=== PATIENT | female | born 1955 | race Caucasian/White ===

== ENCOUNTER 2018-09-07 04:33 | Inpatient (IN) | payer MEDICARE, MEDICAID ==
[~2018-09-07] VITALS: Ht 172.7 cm; Wt 50.0 kg
[~2018-09-07 04:33] MED LIST: CARV3.1289 CORPAK; CITA20TA28 PO; FURO40TA4 PO; LISI2.5T2 CORPAK; NICO-687 TD; NO HOME MEDS; POTA20TA10 PO
[2018-09-07] MEDS ORDERED: aspirin 81mg tab.chew PO ONE (04:40)
[2018-09-07 05:49] LABS: ALANINE AMINOTRANSFERASE 16 U/L (12-78); ALBUMIN 2.4 G/DL (3.4-5.0); ALBUMIN/GLOBULIN RATIO 0.5 (1.1-1.5); ALKALINE PHOSPHATASE 107 IU/L (46-116); ANION GAP 10 (8-16); ASPARTATE AMINO TRANSFERASE 21 U/L (10-37); BILIRUBIN,TOTAL 0.2 MG/DL (0.1-1.0); BLOOD UREA NITROGEN 17 MG/DL (7-18); BUN/CREATININE RATIO 17.9 (6.6-38.0); CHLORIDE 102 MMOL/L (99-107); CREATININE 0.95 MG/DL (0.40-0.90); GLUCOSE 116 MG/DL (70-104); POTASSIUM 3.7 MMOL/L (3.5-5.1); SODIUM 136 MMOL/L (135-145); TOTAL CARBON DIOXIDE 24.4 MMOL/L (24-32); TOTAL PROTEIN 7.2 G/DL (6.4-8.2); eGFR 59 ML/MIN
[2018-09-07 05:57] LABS: MAGNESIUM 1.9 MG/DL (1.5-2.4)
[2018-09-07 06:12] LABS: BASOPHILS # (AUTO) 0.1 X10'3 (0-0.2); BASOPHILS % (AUTO) 0.6 % (0-1); EOSINOPHILS # (AUTO) 0.3 X10'3 (0-0.9); HEMATOCRIT 31.5 % (35.0-45.0); HEMOGLOBIN 10.1 g/dl (12.0-16.0); LYMPHOCYTES # (AUTO) 1.8 X10'3 (1.1-4.8); LYMPHOCYTES % (AUTO) 15.5 % (21-51); MEAN CORPUSCULAR HEMOGLOBIN 27.3 PG (27.0-31.0); MEAN CORPUSCULAR HGB CONC 32.2 g/dL (33.0-36.5); MEAN CORPUSCULAR VOLUME 84.6 FL (78-98); MEAN PLATELET VOLUME 7.6 FL (7.4-10.4); MONOCYTES # (AUTO) 0.8 X10'3 (0-0.9); MONOCYTES % (AUTO) 6.6 % (2-12); NEUTROPHILS # (AUTO) 8.5 X10'3 (1.8-7.7); NEUTROPHILS % (AUTO) 74.3 % (42-75); PLATELET COUNT 442 X10'3 (140-440); RED BLOOD COUNT 3.72 X10'6 (4.20-5.60); RED CELL DISTRIBUTION WIDTH 15.6 % (11.5-14.5); WHITE BLOOD COUNT 11.5 X10'3 (4.5-11.0)
[2018-09-07] MEDS ORDERED: furosemide 10 MG/1 ML 10ml inj IV ONE (06:40)
[2018-09-07] MEDS ORDERED: iohexol 350MG/ML 100ml bottle IV ONE (06:58)
[2018-09-07] MEDS ORDERED: mag hydrox/Alum hydrox/simeth 30ml oral suspension PO PRN (08:30)
[2018-09-07] MEDS ORDERED: ondansetron/PF 4mg/2ml inj IV PRN ×2 (08:30→08:40)
[2018-09-07] MEDS ORDERED: magnesium hydroxide 30ml (MOM) UD suspension PO PRN (08:30)
[2018-09-07] MEDS ORDERED: acetaminophen 325mg tablet PO PRN (08:30)
[2018-09-07] MEDS ORDERED: magnesium 4gm in 100ml NS 100 ML IV PRN (08:40)
[2018-09-07] MEDS ORDERED: magnesium Cl slow-release 64mg tablet PO PRN (08:40)
[2018-09-07] MEDS ORDERED: potassium Cl 20 mEq SR tablet PO PRN ×2 (08:40)
[2018-09-07] MEDS ORDERED: potassium Cl 40MEQ/NS 500ml 500 ML IV PRN ×2 (08:40)
[2018-09-07] MEDS ORDERED: magnesium 2GM in 50ml NS 50 ML IV PRN (08:40)
[2018-09-07] MEDS ORDERED: ipratropium/albuterol 3ml nebule NEB PRN (08:40)
[2018-09-07 08:55] LABS: URINE AMPHETAMINE SCREEN NEGATIVE (Neg); URINE BARBITUATE SCREEN NEGATIVE (Neg); URINE BENZODIAZEPINES SCREEN NEGATIVE (Neg); URINE CANNABINOID SCREEN NEGATIVE (Neg); URINE COCAINE SCREEN NEGATIVE (Neg); URINE METHADONE SCREEN NEGATIVE (Neg); URINE OPIATE SCREEN NEGATIVE (Neg); URINE PHENCYCLIDINE SCREEN NEGATIVE (Neg)
[2018-09-07] MEDS ORDERED: BUSP10TA3 PO (12:09)
[2018-09-07] MEDS ORDERED: TRAZ-251 PO (12:09)
[2018-09-07] MEDS ORDERED: FURO20TA4 PO (12:09)
[2018-09-07] MEDS ORDERED: NICO-687 TOP (12:09)
[2018-09-07] MEDS ORDERED: METO-395 PO (12:09)
[2018-09-07] MEDS ORDERED: LISI-604 PO (12:09)
--- NOTE | 2018-09-07 12:37 | NUR ---
I have received report from СЕРГЕЙ Killian and had the opportunity to ask questions and assume patient care.
[2018-09-07 13:15] VITALS: BP 116/65
[2018-09-07] MEDS: metoprolol succinate 25mg (24-HOUR) SR. Tablet PO SCH (13:58)
[2018-09-07] MEDS: lisinopril 5mg tablet PO SCH (13:59)
[2018-09-07 15:13] LABS: % IRON SATURATION 8 % (11-46); IRON 30 UG/DL (49-151); TOTAL IRON BINDING CAPACITY 396 UG/DL (259-388)
--- NOTE | 2018-09-07 18:35 | NUR ---
Problems reprioritized. Patient report given, questions answered & plan of care reviewed with СЕРГЕЙ Moralez and tyson Sorenson RN.
--- NOTE | 2018-09-07 18:39 | NUR ---
Received report from Cara Hughes with Yas RN pt was eating dinner on RA, pt is SL in no apparent distress, call light and items of freq use within reach
[2018-09-07 19:00] VITALS: BP 100/60
[2018-09-07] MEDS ORDERED: furosemide 10 MG/1 ML 10ml inj IV SCH (20:00)
[2018-09-07] MEDS: furosemide 20MG tablet PO SCH (20:24)
[2018-09-07] MEDS: busPIRone 5mg tablet PO SCH (20:24)
[2018-09-07] MEDS ORDERED: traZODone 50mg tablet PO SCH (21:00)
[2018-09-08] VITALS: BP 106/55
[2018-09-08 04:42] LABS: BASOPHILS # (AUTO) 0.1 X10'3 (0-0.2); BASOPHILS % (AUTO) 1.2 % (0-1); EOSINOPHILS # (AUTO) 0.3 X10'3 (0-0.9); EOSINOPHILS % (AUTO) 2.8 % (0-6); HEMATOCRIT 34.7 % (35.0-45.0); HEMOGLOBIN 11.1 g/dl (12.0-16.0); LYMPHOCYTES # (AUTO) 2.4 X10'3 (1.1-4.8); MEAN CORPUSCULAR HEMOGLOBIN 27.1 PG (27.0-31.0); MEAN CORPUSCULAR VOLUME 84.8 FL (78-98); MEAN PLATELET VOLUME 7.9 FL (7.4-10.4); MONOCYTES # (AUTO) 0.7 X10'3 (0-0.9); MONOCYTES % (AUTO) 6.6 % (2-12); NEUTROPHILS # (AUTO) 7.7 X10'3 (1.8-7.7); NEUTROPHILS % (AUTO) 68.4 % (42-75); PLATELET COUNT 517 X10'3 (140-440); RED BLOOD COUNT 4.09 X10'6 (4.20-5.60); RED CELL DISTRIBUTION WIDTH 15.7 % (11.5-14.5); WHITE BLOOD COUNT 11.2 X10'3 (4.5-11.0)
[2018-09-08 04:54] LABS: ALBUMIN 2.4 G/DL (3.4-5.0); ANION GAP 7 (8-16); BLOOD UREA NITROGEN 25 MG/DL (7-18); BUN/CREATININE RATIO 19.5 (6.6-38.0); CALCIUM 9.1 MG/DL (8.5-10.1); CHLORIDE 101 MMOL/L (99-107); CREATININE 1.28 MG/DL (0.40-0.90); GLUCOSE 108 MG/DL (70-104); MAGNESIUM 1.9 MG/DL (1.5-2.4); POTASSIUM 3.3 MMOL/L (3.5-5.1); SODIUM 137 MMOL/L (135-145); TOTAL CARBON DIOXIDE 29.1 MMOL/L (24-32); eGFR 42 ML/MIN
--- NOTE | 2018-09-08 06:15 | NUR ---
Patient in room TAIWO 347. I have received report from Naomy RUSHING and had the opportunity to ask questions and assume patient care.
--- NOTE | 2018-09-08 06:44 | NUR ---
Problems reprioritized. Patient report given, questions answered & plan of care reviewed with Anabel RUSHING.
[2018-09-08] MEDS: lisinopril 5mg tablet PO SCH (07:32)
[2018-09-08] MEDS: metoprolol succinate 25mg (24-HOUR) SR. Tablet PO SCH (07:33)
[2018-09-08] MEDS: busPIRone 5mg tablet PO SCH (07:33)
[2018-09-08] MEDS: furosemide 20MG tablet PO SCH (07:33)
[2018-09-08 08:00] VITALS: BP 107/57
[2018-09-08] MEDS ORDERED: nicotine 21mg patch - 24 hr TD SCH (08:00)
[2018-09-08] MEDS ORDERED: K and/or MAG REPLACEMENT MC SCH (08:00)
--- NOTE | 2018-09-08 08:00 | NUR ---
Student Medication Administration: For this medication-pass time frame, all medication were reviewed, dispensed, administered and documented per hospital policy by Radha SAMSON from [facility].
--- NOTE | 2018-09-08 09:56 | NUR ---
Melba SIMMONS for Ativan for anxiety attack. Order received Ativan 0.5mg PO ONCE.
[2018-09-08] MEDS ORDERED: pneumococcal 23-VAL P-sac vacc 25 mcg/0.5ml vial IMVAC ONE (10:00)
[2018-09-08] MEDS ORDERED: LORazepam 0.5 MG tablet PO ONE (10:00)
[2018-09-08] MEDS ORDERED: potassium Cl 20 mEq SR tablet PO STA (10:46)
--- NOTE | 2018-09-08 11:29 | NUR ---
Patient discharge on nursing end, waiting on ride to go home.
--- NOTE | 2018-09-08 11:48 | NUR ---
Patient discharged took to [facility] by staff via wheelchair. A+O x 4. VS stable. Left via private vehicle.
--- NOTE | 2018-09-08 12:11 | NUR ---
Student documentation: I have reviewed and agree with all interventions, assessments performed and documented by Radha SAMSON from [facility].
== END 2018-09-08 11:30 | disposition home or self-care (01) | DRG 315 ==
LOC: ER 04:33 → SUR 3N 13:07
PROVIDERS: ADMIT Internal Medicine; ATTEND Internal Medicine
PROC: 3E0234Z Introduction of Serum, Toxoid and Vaccine into Muscle, Percutaneous Approach (ICD-10-PCS; principal; 2018-09-08)
DX: I42.9 Cardiomyopathy, unspecified (principal); I50.22 Chronic systolic (congestive) heart failure; F15.10 Other stimulant abuse, uncomplicated; G89.29 Other chronic pain; M54.9 Dorsalgia, unspecified; R09.02 Hypoxemia; E05.90 Thyrotoxicosis, unspecified without thyrotoxic crisis or storm; F41.9 Anxiety disorder, unspecified; Z87.01 Personal history of pneumonia (recurrent); Z90.710 Acquired absence of both cervix and uterus; Z23 Encounter for immunization; Z91.041 Radiographic dye allergy status; Z88.5 Allergy status to narcotic agent; Z91.013 Allergy to seafood; Z80.8 Family history of malignant neoplasm of other organs or systems; Z79.899 Other long term (current) drug therapy
CPT/HCPCS: 36415; 71045; 80048; 80053; 80305; 83540; 83550; 83735; 83880; 84484; 85025; 87070; 90732; 93005; 93306; 94760; 99285; G0378; J1940; Q9967

== ENCOUNTER 2018-09-15 13:28 | Emergency (ER) | payer MEDICARE, MEDICAID ==
[~2018-09-15] VITALS: Ht 172.7 cm; Wt 50.0 kg
[~2018-09-15 13:28] MED LIST changes: +BUSP10TA3 PO; -CARV3.1289 CORPAK; -CITA20TA28 PO; +FURO20TA4 PO; -FURO40TA4 PO; +LISI-604 PO; -LISI2.5T2 CORPAK; +METO-395 PO; -NICO-687 TD; +NICO-687 TOP; -NO HOME MEDS; -POTA20TA10 PO; +TRAZ-218 PO
[2018-09-15] MEDS ORDERED: metoprolol tartrate 1mg/ml inj IV ONE (13:50)
[2018-09-15] MEDS ORDERED: CITA20TA28 PO (14:19)
[2018-09-15 14:27] LABS: BASOPHILS # (AUTO) 0.1 X10'3 (0-0.2); EOSINOPHILS # (AUTO) 0.1 X10'3 (0-0.9); EOSINOPHILS % (AUTO) 0.8 % (0-6); HEMOGLOBIN 10.4 g/dl (12.0-16.0); LYMPHOCYTES # (AUTO) 2.2 X10'3 (1.1-4.8); LYMPHOCYTES % (AUTO) 18.5 % (21-51); MEAN CORPUSCULAR HEMOGLOBIN 26.9 PG (27.0-31.0); MEAN CORPUSCULAR HGB CONC 32.5 g/dL (33.0-36.5); MEAN CORPUSCULAR VOLUME 82.8 FL (78-98); MEAN PLATELET VOLUME 8.4 FL (7.4-10.4); MONOCYTES # (AUTO) 1.4 X10'3 (0-0.9); MONOCYTES % (AUTO) 11.8 % (2-12); NEUTROPHILS # (AUTO) 8.2 X10'3 (1.8-7.7); NEUTROPHILS % (AUTO) 67.9 % (42-75); PLATELET COUNT 472 X10'3 (140-440); RED BLOOD COUNT 3.87 X10'6 (4.20-5.60); RED CELL DISTRIBUTION WIDTH 16.1 % (11.5-14.5)
[2018-09-15 14:43] LABS: ALANINE AMINOTRANSFERASE 16 U/L (12-78); ALBUMIN 2.5 G/DL (3.4-5.0); ALBUMIN/GLOBULIN RATIO 0.5 (1.1-1.5); ALKALINE PHOSPHATASE 100 IU/L (46-116); ANION GAP 11 (8-16); ASPARTATE AMINO TRANSFERASE 15 U/L (10-37); BILIRUBIN,TOTAL 0.5 MG/DL (0.1-1.0); BLOOD UREA NITROGEN 12 MG/DL (7-18); BUN/CREATININE RATIO 13.6 (6.6-38.0); CALCIUM 9.1 MG/DL (8.5-10.1); CHLORIDE 99 MMOL/L (99-107); CREATININE 0.88 MG/DL (0.40-0.90); GLUCOSE 94 MG/DL (70-104); POTASSIUM 3.1 MMOL/L (3.5-5.1); SODIUM 134 MMOL/L (135-145); TOTAL CARBON DIOXIDE 23.8 MMOL/L (24-32); TOTAL PROTEIN 7.3 G/DL (6.4-8.2); eGFR 65 ML/MIN
[2018-09-15 14:51] LABS: MAGNESIUM 2.1 MG/DL (1.5-2.4)
--- NOTE | 2018-09-15 15:15 | NUR ---
pt amb with steady gait to restroom,
[2018-09-15] MEDS ORDERED: potassium Cl 20 mEq SR tablet PO STA (15:21)
[2018-09-15] MEDS ORDERED: METO-395 PO (15:22)
[2018-09-15] MEDS ORDERED: BACDS PO (15:23)
[2018-09-15] MEDS ORDERED: POTA20TA19 PO (15:23)
[2018-09-15] MEDS ORDERED: HYDR-4353 PO (15:23)
[2018-09-15] MEDS ORDERED: LISI-604 PO (15:24)
[2018-09-15] MEDS ORDERED: sulfamethoxazole/trimethoprim DS (800/160mg) tablet PO ONE (15:25)
[2018-09-15] MEDS ORDERED: HYDROcodone/acetaminophen 10/325mg tab PO ONE (15:25)
[2018-09-15 16:18] VITALS: BP 100/68
== END 2018-09-15 16:19 | disposition home or self-care (01) ==
LOC: ER 13:30
DX: L08.9 Local infection of the skin and subcutaneous tissue, unspecified (principal); R00.0 Tachycardia, unspecified; E87.6 Hypokalemia; I11.0 Hypertensive heart disease with heart failure; I50.9 Heart failure, unspecified; G89.29 Other chronic pain; F17.200 Nicotine dependence, unspecified, uncomplicated; Z90.710 Acquired absence of both cervix and uterus; Z91.013 Allergy to seafood; Z88.5 Allergy status to narcotic agent; Z88.8 Allergy status to other drugs, medicaments and biological substances; Z79.899 Other long term (current) drug therapy
CPT/HCPCS: 36415; 71045; 80053; 83735; 83880; 85025; 93005; 96374; 99284; J3490

== ENCOUNTER 2020-10-03 13:08 | Emergency (ER) | payer MEDICARE, MEDICAID ==
[~2020-10-03] VITALS: Ht 172.7 cm; Wt 50.0 kg
[~2020-10-03 13:08] MED LIST changes: +CITA20TA28 PO; -LISI-604 PO; +LISI-790 PO; -NICO-687 TOP; -TRAZ-218 PO; +TRAZ-251 PO
[2020-10-03] MEDS ORDERED: CELE-193 PO (15:02)
[2020-10-03 15:08] VITALS: BP 117/96
== END 2020-10-03 15:08 | disposition home or self-care (01) ==
LOC: ER 13:11
DX: M19.90 Unspecified osteoarthritis, unspecified site (principal); I11.0 Hypertensive heart disease with heart failure; I50.9 Heart failure, unspecified; G89.29 Other chronic pain; F41.9 Anxiety disorder, unspecified; Z90.710 Acquired absence of both cervix and uterus; Z98.890 Other specified postprocedural states; Z88.8 Allergy status to other drugs, medicaments and biological substances; Z88.5 Allergy status to narcotic agent; Z91.013 Allergy to seafood; Z79.899 Other long term (current) drug therapy
CPT/HCPCS: 99283

== ENCOUNTER 2021-01-19 09:47 | Emergency (ER) | payer MEDICARE, MEDICAID ==
[~2021-01-19] VITALS: Ht 172.7 cm; Wt 7.4 kg
[2021-01-19 09:55] VITALS: BP 158/69
[2021-01-19] MEDS ORDERED: DICL20GE TOP (10:15)
[2021-01-19] MEDS ORDERED: ketorolac tromethamine 15mg/ml inj. IM ONE (10:15)
== END 2021-01-19 10:25 | disposition home or self-care (01) ==
LOC: ER 09:47
DX: M19.90 Unspecified osteoarthritis, unspecified site (principal); M79.641 Pain in right hand; M79.642 Pain in left hand; I11.0 Hypertensive heart disease with heart failure; I50.9 Heart failure, unspecified; G89.29 Other chronic pain; Z90.710 Acquired absence of both cervix and uterus; Z85.05 Personal history of malignant neoplasm of liver; Z91.041 Radiographic dye allergy status; Z88.5 Allergy status to narcotic agent; Z91.013 Allergy to seafood; Z79.899 Other long term (current) drug therapy
CPT/HCPCS: 96372; 99283; J1885

== ENCOUNTER 2021-02-04 15:43 | Emergency (ER) | payer MEDICARE, MEDICAID ==
[~2021-02-04] VITALS: Ht 172.7 cm; Wt 47.7 kg
[~2021-02-04 15:43] MED LIST changes: +DICL20GE TOP
[2021-02-04 15:52] VITALS: BP 137/63
[2021-02-04] MEDS ORDERED: ketorolac tromethamine 15mg/ml inj. IM ONE (16:00)
[2021-02-04] MEDS ORDERED: DICL100G26 TP (16:02)
== END 2021-02-04 16:11 | disposition home or self-care (01) ==
LOC: ER 15:44
DX: M25.531 Pain in right wrist (principal); I11.0 Hypertensive heart disease with heart failure; I25.10 Atherosclerotic heart disease of native coronary artery without angina pectoris; G89.29 Other chronic pain; E07.9 Disorder of thyroid, unspecified; Z90.710 Acquired absence of both cervix and uterus; Z91.041 Radiographic dye allergy status; Z88.5 Allergy status to narcotic agent; Z91.013 Allergy to seafood; Z79.899 Other long term (current) drug therapy
CPT/HCPCS: 96372; 99283; J1885

== ENCOUNTER 2021-03-18 22:05 | Emergency (ER) | payer MEDICARE, MEDICAID ==
[~2021-03-18] VITALS: Ht 172.7 cm; Wt 50.0 kg
[~2021-03-18 22:05] MED LIST changes: +DICL100G26 TP
[2021-03-18 22:40] VITALS: BP 114/56
[2021-03-20] MEDS ORDERED: TRAM50TA2 PO (13:38)
[2021-03-20] MEDS ORDERED: CELE200C PO (13:38)
== END 2021-03-19 07:34 | disposition left against medical advice (07) ==
LOC: ER 22:06
DX: M79.604 Pain in right leg (principal); Z53.21 Procedure and treatment not carried out due to patient leaving prior to being seen by health care provider

== ENCOUNTER 2021-03-20 13:19 | Emergency (ER) | payer MEDICARE, MEDICAID ==
[~2021-03-20] VITALS: Ht 172.7 cm; Wt 45.5 kg
[2021-03-20 13:25] VITALS: BP 130/64
[2021-03-20] MEDS ORDERED: TRAM50TA2 PO (13:38)
[2021-03-20] MEDS ORDERED: CELE200C PO (13:38)
== END 2021-03-20 15:05 | disposition home or self-care (01) ==
LOC: ER 13:19
DX: M70.61 Trochanteric bursitis, right hip (principal); M25.551 Pain in right hip; I50.9 Heart failure, unspecified; I11.0 Hypertensive heart disease with heart failure; G89.29 Other chronic pain; F41.9 Anxiety disorder, unspecified; Z90.710 Acquired absence of both cervix and uterus; Z98.890 Other specified postprocedural states; Z88.8 Allergy status to other drugs, medicaments and biological substances; Z91.013 Allergy to seafood; Z88.5 Allergy status to narcotic agent; Z79.899 Other long term (current) drug therapy
CPT/HCPCS: 99283

== ENCOUNTER 2021-03-28 12:47 | Emergency (ER) | payer MEDICARE, MEDICAID ==
[~2021-03-28] VITALS: Ht 167.6 cm; Wt 53.6 kg
[~2021-03-28 12:47] MED LIST changes: +CELE200C PO; -LISI-790 PO; +LISI5TAB22 PO; +TRAM50TA2 PO
[2021-03-28 12:48] VITALS: BP 146/66
== END 2021-03-28 20:10 | disposition left against medical advice (07) ==
LOC: ER 12:48
DX: F41.9 Anxiety disorder, unspecified (principal); Z53.21 Procedure and treatment not carried out due to patient leaving prior to being seen by health care provider

== ENCOUNTER 2021-06-14 19:40 | Inpatient (IN) | payer MEDICARE, MEDICAID ==
[~2021-06-14] VITALS: Ht 172.7 cm; Wt 54.5 kg
[~2021-06-14 19:40] MED LIST changes: +APIX5TAB3 PO; +ASPI-1144 PO; +ATOR10TA PO; +CARV3.122 PO; -CELE200C PO; -CITA20TA28 PO; -DICL100G26 TP; -DICL20GE TOP; +FAMO20TA8 PO; +FERR325T29 PO; +HYDR-3927 PO; +MAGN400T56 PO; -METO-395 PO; +MIRT-87 PO; +SPIR25TA PO; -TRAM50TA2 PO; -TRAZ-251 PO
[2021-06-14 22:38] LABS: EOSINOPHILS # (AUTO) 0.1 X10'3 (0-0.9); EOSINOPHILS % (AUTO) 1.1 % (0-6); HEMATOCRIT 29.1 % (35.0-45.0); MONOCYTES # (AUTO) 0.5 X10'3 (0-0.9)
[2021-06-14 22:39] LABS: BASOPHILS % (AUTO) 0.3 % (0-1); LYMPHOCYTES # (AUTO) 1.7 X10'3 (1.1-4.8); LYMPHOCYTES % (AUTO) 20.8 % (21-51); MEAN CORPUSCULAR HEMOGLOBIN 22.3 PG (27.0-31.0); MEAN CORPUSCULAR HGB CONC 31.1 g/dL (33.0-36.5); MEAN CORPUSCULAR VOLUME 71.8 FL (78-98); MONOCYTES % (AUTO) 5.5 % (2-12); NEUTROPHILS # (AUTO) 6.1 X10'3 (1.8-7.7); NEUTROPHILS % (AUTO) 72.3 % (42-75); PLATELET COUNT 270 X10'3 (140-440); RED BLOOD COUNT 4.05 X10'6 (4.20-5.60); RED CELL DISTRIBUTION WIDTH 21.7 % (11.5-14.5); WHITE BLOOD COUNT 8.4 X10'3 (4.5-11.0)
[2021-06-14 22:59] LABS: ALANINE AMINOTRANSFERASE 28 U/L (12-78); ALBUMIN 2.7 G/DL (3.4-5.0); ALBUMIN/GLOBULIN RATIO 0.6 (1.1-1.5); ALKALINE PHOSPHATASE 162 IU/L (46-116); ANION GAP 11 (8-16); ASPARTATE AMINO TRANSFERASE 26 U/L (10-37); BLOOD UREA NITROGEN 26 MG/DL (7-18); BUN/CREATININE RATIO 24.1 (6.6-38.0); CALCIUM 8.3 MG/DL (8.5-10.1); CHLORIDE 102 MMOL/L (99-107); CREATININE 1.08 MG/DL (0.40-0.90); POTASSIUM 3.3 MMOL/L (3.5-5.1); SODIUM 135 MMOL/L (135-145); TOTAL CARBON DIOXIDE 22.3 MMOL/L (24-32); TOTAL PROTEIN 6.9 G/DL (6.4-8.2); eGFR 51 ML/MIN
[2021-06-14 23:02] LABS: GLUCOSE 87 MG/DL (70-104)
[2021-06-15 02:33] LABS: PLATELET ESTIMATE NORMAL
[2021-06-15 02:34] LABS: ANISOCYTOSIS 3+; ELLIPTOCYTES FEW; HYPOCHROMASIA 1+; MICROCYTOSIS 1+; POIKILOCYTOSIS 1+; POLYCHROMASIA FEW
[2021-06-15] MEDS ORDERED: spironolactone 25 MG tablet PO STA (02:51)
[2021-06-15] MEDS ORDERED: acetaminophen 325mg tablet PO PRN ×2 (03:20)
[2021-06-15] MEDS ORDERED: magnesium 2GM in 50ml NS 50 ML IV PRN (03:20)
[2021-06-15] MEDS ORDERED: potassium CL 10mEq/100ml bag 100 ML IV PRN (03:20)
[2021-06-15] MEDS ORDERED: potassium Cl 20 mEq SR tablet PO PRN ×2 (03:20)
[2021-06-15] MEDS ORDERED: magnesium Cl slow-release 64mg tablet PO PRN (03:20)
[2021-06-15] MEDS ORDERED: ondansetron/PF 4mg/2ml inj IV PRN (03:20)
[2021-06-15] MEDS ORDERED: magnesium 4gm in 100ml NS 100 ML IV PRN (03:20)
[2021-06-15] MEDS ORDERED: APIX5TAB3 PO (03:31)
[2021-06-15] MEDS ORDERED: SPIR25TA PO (03:32)
[2021-06-15] MEDS ORDERED: ATOR10TA70 PO (03:32)
[2021-06-15] MEDS ORDERED: magnesium oxide 400mg tablet PO PRN (04:00)
[2021-06-15] MEDS ORDERED: hydrOXYzine 25 MG tablet PO PRN (04:00)
[2021-06-15] MEDS ORDERED: carVEDilol 3.125mg tablet PO SCH (08:00)
[2021-06-15] MEDS ORDERED: ferrous sulfate 325mg tablet PO SCH (08:00)
[2021-06-15] MEDS ORDERED: aspirin 81mg tab.chew PO SCH (08:00)
[2021-06-15] MEDS ORDERED: heparin, porcine 5000 units/ml vial SQ SCH (08:00)
[2021-06-15] MEDS ORDERED: K and/or MAG REPLACEMENT MC SCH (08:00)
[2021-06-15] MEDS ORDERED: lisinopril 5mg tablet PO SCH (08:00)
[2021-06-15] MEDS ORDERED: atorvastatin 10mg tablet PO SCH (08:00)
[2021-06-15] MEDS ORDERED: furosemide 10 MG/1 ML 10ml inj IV SCH (08:00)
[2021-06-15] MEDS ORDERED: busPIRone 5mg tablet PO SCH (08:00)
[2021-06-15] MEDS ORDERED: famotidine 20mg tablet PO SCH (08:00)
[2021-06-15] MEDS ORDERED: spironolactone 25 MG tablet PO SCH (08:30)
--- NOTE | 2021-06-15 11:00 | NUR ---
PT ASSISTED TO BEDSIDE COMMODE TO OBTAIN URINE SAMPLE. PT URINATED AND HAD BOWEL MOVEMENT WHICH CONTAMINATED THE URINE SAMPLE. PT THEN CLEANED UP AND ESCORTED BACK TO BED
[2021-06-15] MEDS ORDERED: CEPH-585 PO (12:48)
[2021-06-15] MEDS ORDERED: ZAR2.5T PO (12:48)
[2021-06-15 13:00] VITALS: BP 99/59
[2021-06-15] MEDS ORDERED: mirtazapine 15mg tablet PO SCH (21:00)
[2021-06-15] MEDS ORDERED: temazepam 15mg capsule PO PRN (21:00)
== END 2021-06-15 13:42 | disposition home health service (06) | DRG 291 ==
LOC: ER 19:40 → ED HOLD 06-15 03:24
PROVIDERS: ADMIT Internal Medicine; ATTEND Internal Medicine
DX: I13.0 Hypertensive heart and chronic kidney disease with heart failure and stage 1 through stage 4 chronic kidney disease, or unspecified chronic kidney disease (principal); I50.23 Acute on chronic systolic (congestive) heart failure; I42.7 Cardiomyopathy due to drug and external agent; F41.9 Anxiety disorder, unspecified; M54.9 Dorsalgia, unspecified; G89.29 Other chronic pain; F15.11 Other stimulant abuse, in remission; W06.XXXA Fall from bed, initial encounter; Y92.003 Bedroom of unspecified non-institutional (private) residence as the place of occurrence of the external cause; Z79.01 Long term (current) use of anticoagulants; Z86.711 Personal history of pulmonary embolism; Z90.710 Acquired absence of both cervix and uterus; Y93.89 Activity, other specified; Y99.8 Other external cause status; Z91.041 Radiographic dye allergy status; Z88.5 Allergy status to narcotic agent; Z91.013 Allergy to seafood; Z80.0 Family history of malignant neoplasm of digestive organs; Z79.899 Other long term (current) drug therapy; N18.30 Chronic kidney disease, stage 3 unspecified
CPT/HCPCS: 36415; 71045; 80053; 83605; 83880; 84132; 84145; 85008; 85025; 87040; 93005; 99285; G0378; J1644

== ENCOUNTER 2021-06-29 16:23 | Inpatient (IN) | payer MEDICARE, MEDICAID ==
[~2021-06-29] VITALS: Ht 163.8 cm; Wt 51.2 kg
[~2021-06-29 16:23] MED LIST changes: -ATOR10TA PO; +ATOR10TA70 PO; +ZAR2.5T PO
[2021-06-29 18:16] LABS: BASOPHILS % (AUTO) 0.2 % (0-1); MONOCYTES % (AUTO) 7.4 % (2-12); NEUTROPHILS % (AUTO) 76.5 % (42-75)
[2021-06-29 18:18] LABS: EOSINOPHILS % (AUTO) 0.1 % (0-6); LYMPHOCYTES # (AUTO) 2.3 X10'3 (1.1-4.8); LYMPHOCYTES % (AUTO) 15.8 % (21-51); MEAN PLATELET VOLUME 7.6 FL (7.4-10.4); MONOCYTES # (AUTO) 1.1 X10'3 (0-0.9); NEUTROPHILS # (AUTO) 10.9 X10'3 (1.8-7.7); PLATELET COUNT 338 X10'3 (140-440); WHITE BLOOD COUNT 14.3 X10'3 (4.5-11.0)
[2021-06-29 18:29] LABS: ALANINE AMINOTRANSFERASE 20 U/L (12-78); ALBUMIN 2.5 G/DL (3.4-5.0); ALBUMIN/GLOBULIN RATIO 0.6 (1.1-1.5); ALKALINE PHOSPHATASE 135 IU/L (46-116); ANION GAP 16 (8-16); ASPARTATE AMINO TRANSFERASE 27 U/L (10-37); BLOOD UREA NITROGEN 26 MG/DL (7-18); BUN/CREATININE RATIO 20.8 (6.6-38.0); CALCIUM 8.6 MG/DL (8.5-10.1); CHLORIDE 102 MMOL/L (99-107); CREATININE 1.25 MG/DL (0.40-0.90); POTASSIUM 4.6 MMOL/L (3.5-5.1); SODIUM 133 MMOL/L (135-145); TOTAL CARBON DIOXIDE 15.4 MMOL/L (24-32); eGFR 43 ML/MIN
[2021-06-29 18:38] LABS: GLUCOSE 132 MG/DL (70-104)
[2021-06-29] MEDS ORDERED: furosemide 10 MG/1 ML 10ml inj IV ONE (18:40)
[2021-06-29] MEDS ORDERED: LIDOcaine 2% 10ml TOPICAL JELLY (Urojet) TP ONE (19:00)
[2021-06-29 19:03] LABS: ABG BASE EXCESS -8.1 mmol/L (-2.0-2.0); ABG HCO3 14.3 mmol/L (22.0-26.0); ABG OXYGEN SATURATION 91.3 % (94-97); ABG PCO2 (T) 21.5 mmHg (32.0-45.0); ABG PO2 (T) 61.7 mmHg (75.0-100.0); ALLEN'S TEST POSITIVE; FCOHb 1.1 % (0.0-3.9); FMetHb 0.1 % (0.0-1.5); FO2Hb 90.2 % (94-97); TOTAL HEMOGLOBIN 10.8 G/dl (12.0-16.0)
[2021-06-29 19:38] LABS: HEMATOCRIT 35.5 % (35.0-45.0); HEMOGLOBIN 11.2 g/dl (12.0-16.0); MEAN CORPUSCULAR HEMOGLOBIN 22.5 PG (27.0-31.0); MEAN CORPUSCULAR HGB CONC 31.6 g/dL (33.0-36.5); MEAN CORPUSCULAR VOLUME 71.1 FL (78-98); RED CELL DISTRIBUTION WIDTH 21.6 % (11.5-14.5)
[2021-06-29 19:53] LABS: CLARITY,URINE CLEAR (Clear); COLOR,URINE YELLOW (Yellow); GLUCOSE, URINE NEGATIVE (Neg); KETONES,URINE NEGATIVE (Neg); LEUKOCYTE ESTERASE ,URINE NEGATIVE (Neg); NITRITES, URINE NEGATIVE (Neg); OCCULT BLOOD,URINE NEGATIVE (Neg); PROTEIN,URINE NEGATIVE (Neg); UROBILINOGEN,URINE 0.2 E.U/dL (0.2-1.0)
[2021-06-29 20:02] LABS: UA COLLECTION TYPE NON-SPECIFIED
[2021-06-29 20:07] LABS: NUCLEATED RED BLOOD CELLS 7 /100WBC (0-0); TOTAL CELLS COUNTED 100
[2021-06-29 20:11] LABS: ANISOCYTOSIS 3+; MICROCYTOSIS 1+; PLATELET ESTIMATE NORMAL; POIKILOCYTOSIS 1+
[2021-06-29 20:12] LABS: POLYCHROMASIA 1+
[2021-06-29 20:15] LABS: ELLIPTOCYTES FEW; LARGE PLATELETS FEW
--- NOTE | 2021-06-29 21:53 | NUR ---
pressure wound noted on the back of right knee. cleaned and placed 4x4 gauze with coban wrap. area of erythema also noted on right hip. patient turned onto left side and blankets placed under right side
[2021-06-30] MEDS ORDERED: ondansetron 4mg rapidly disintigrating tab PO PRN (00:15)
[2021-06-30] MEDS ORDERED: mag hydrox/Alum hydrox/simeth 30ml oral suspension PO PRN (00:15)
[2021-06-30] MEDS ORDERED: acetaminophen 325mg tablet PO PRN ×2 (00:15)
[2021-06-30] MEDS ORDERED: diphenhydrAMINE 25mg capsule PO PRN (00:15)
[2021-06-30] MEDS ORDERED: bisacodyl 10mg suppository rectal RC PRN (00:15)
[2021-06-30] MEDS ORDERED: diphenhydrAMINE 50 mg/ml inj IV PRN (00:15)
[2021-06-30] MEDS ORDERED: ondansetron/PF 4mg/2ml inj IV PRN (00:15)
[2021-06-30] MEDS ORDERED: acetaminophen 650mg rectal suppository RC PRN (00:15)
[2021-06-30] MEDS ORDERED: magnesium hydroxide 30ml (MOM) UD suspension PO PRN (00:15)
[2021-06-30] MEDS ORDERED: CITA20TA28 PO (00:43)
[2021-06-30 01:20] LABS: APTT 32 SECONDS (22-32); D-DIMER 3.33 MG/L FEU (0-0.50)
[2021-06-30 01:29] LABS: MAGNESIUM 2.1 MG/DL (1.5-2.4)
[2021-06-30 01:31] LABS: PHOSPHORUS 4.3 MG/DL (2.3-4.5)
[2021-06-30 03:00] VITALS: BP 101/62
[2021-06-30] MEDS: HYDROcodone/acetaminophen 5mg/325mg tablet PO PRN ×3 (03:21→15:23)
[2021-06-30 06:00] VITALS: BP 88/49
[2021-06-30] MEDS: furosemide 20 MG/2 ML vial IV SCH (08:00)
[2021-06-30] MEDS: lisinopril 5mg tablet PO SCH (08:00)
[2021-06-30] MEDS: carVEDilol 3.125mg tablet PO SCH ×2 (08:00→20:52)
[2021-06-30] MEDS: famotidine 20mg tablet PO SCH ×2 (08:02→20:53)
[2021-06-30] MEDS: citalopram 20mg tablet PO SCH (08:03)
[2021-06-30] MEDS: busPIRone 5mg tablet PO SCH ×2 (08:03→20:52)
[2021-06-30] MEDS: atorvastatin 10mg tablet PO SCH (08:04)
[2021-06-30] MEDS: ferrous sulfate 325mg tablet PO SCH (08:04)
[2021-06-30] MEDS: apixaban 5mg tablet PO SCH ×2 (08:05→20:52)
[2021-06-30] MEDS: aspirin 81mg tab.chew PO SCH (08:05)
[2021-06-30] MEDS: docusate sod 100mg capsule PO SCH ×2 (08:05→20:52)
[2021-06-30] MEDS: spironolactone 25 MG tablet PO SCH (08:30)
--- NOTE | 2021-06-30 10:28 | NUR ---
spoke to СЕРГЕЙ العلي from home health. Zohra states that pt has not been out of bed for at least a week. The pt is refusing to eat and Zohra does not know when she last took her medications. According to Zohra, the patient is a very mean person and the family who is taking care of her are having a hard time with caregiving because of this. I explained to Zohra what the plan was for this admission. She will put that in her home health chart.
[2021-06-30 11:00] VITALS: BP 96/52
[2021-06-30 15:00] VITALS: BP 91/52
--- NOTE | 2021-06-30 15:07 | NUR ---
[id number] Shantelle, Please order something for severe pain 03/08. Thank you. Bouchra RUSHING [phone]
--- NOTE | 2021-06-30 15:19 | NUR ---
Malnutrition Consult: Pt admit dx systolic CHF per EMR. Noted pt stated wt loss of 14-23 lbs per RN malnutrition screen. RD d/w RN pt condition; RN stated pt had a home health nurse who had reported pt as not being able to get out of bed for at least 4 days and not really eating prior to current admit. RN described pt as emaciated. Pt w/ severe weakness and BLE +3 edema per EMR. Pt currently meets criteria for malnutrition, MD notified Pt PO intake ~63% of first meal, pending PO trends. RD d/w power plant operations manager regarding pt wounds; power plant operations manager stated R posterior knee wound as full thickness, along w/ DTI to the L heel, and redness around the coccygeal area. Pt could benefit from Niko smoothies BIDBD to help with wound healing. No documented BM, receiving routine bowel care. Will continue to monitor and make recommendations as appropriate. Recommendations: 1. Continue sodium restricted diet as tolerated 2. Niko smoothies BIDBD; pending physician approval 3. Encourage PO intake 4. Bowel care per Rx 5. Scaled wt this admit, subsequent weekly wt Addendum: 06/30/21 at [address] Amended: Links added. Addendum: 06/30/21 at [address] I have reviewed assessment by internal grinding machine operator
--- NOTE | 2021-06-30 17:03 | NUR ---
sent msg to Dr. Chester asking for something to calm pt down. she is in a lot of pain and because of low bp am unable to give more pain medication. Waiting for response.
[2021-06-30] MEDS: JUVEN Smoothie Arginine/Glut./Ca2+Bmb (Juven 19.3pkt) 240ml cup PO SCH ×3 (17:30→20:54)
[2021-06-30 18:00] VITALS: BP 88/44
[2021-06-30] MEDS: CefTRIAXone/D5W-Rocephin 1gm 50 ML IV SCH (18:40)
[2021-06-30] MEDS: HYDROmorphone inj. 0.5 MG/0.5 ML DISP.SYRIN IV PRN (20:52)
[2021-06-30] MEDS: mirtazapine 15mg tablet PO SCH (20:52)
[2021-06-30] MEDS: temazepam 15mg capsule PO PRN (20:55)
[2021-06-30 22:00] VITALS: BP 89/43
[2021-07-01 02:00] VITALS: BP 89/55
[2021-07-01 06:00] VITALS: BP 109/47
[2021-07-01 06:01] LABS: ALANINE AMINOTRANSFERASE 17 U/L (12-78); ALBUMIN/GLOBULIN RATIO 0.6 (1.1-1.5); ALKALINE PHOSPHATASE 130 IU/L (46-116); ANION GAP 11 (8-16); ASPARTATE AMINO TRANSFERASE 30 U/L (10-37); BILIRUBIN,TOTAL 0.8 MG/DL (0.1-1.0); BLOOD UREA NITROGEN 31 MG/DL (7-18); BUN/CREATININE RATIO 29.8 (6.6-38.0); CALCIUM 7.9 MG/DL (8.5-10.1); CHLORIDE 103 MMOL/L (99-107); CREATININE 1.04 MG/DL (0.40-0.90); SODIUM 135 MMOL/L (135-145); TOTAL CARBON DIOXIDE 20.7 MMOL/L (24-32); TOTAL PROTEIN 5.5 G/DL (6.4-8.2); eGFR 53 ML/MIN
[2021-07-01 06:02] LABS: GLUCOSE 80 MG/DL (70-104); POTASSIUM 4.2 MMOL/L (3.5-5.1)
--- NOTE | 2021-07-01 06:13 | NUR ---
Patient in room PCU 3012. I have received report from Ivan RUSHING and had the opportunity to ask questions and assume patient care.
[2021-07-01 07:16] LABS: BASOPHILS % (AUTO) 0.4 % (0-1); EOSINOPHILS # (AUTO) 0.2 X10'3 (0-0.9); EOSINOPHILS % (AUTO) 1.8 % (0-6); LYMPHOCYTES # (AUTO) 2.3 X10'3 (1.1-4.8); MONOCYTES # (AUTO) 1.6 X10'3 (0-0.9); MONOCYTES % (AUTO) 12.3 % (2-12); NEUTROPHILS # (AUTO) 9.2 X10'3 (1.8-7.7); NEUTROPHILS % (AUTO) 68.5 % (42-75); PLATELET COUNT 251 X10'3 (140-440); RED CELL DISTRIBUTION WIDTH 23.3 % (11.5-14.5)
[2021-07-01 07:59] LABS: HEMATOCRIT 31.6 % (35.0-45.0); MEAN CORPUSCULAR HEMOGLOBIN 22.4 PG (27.0-31.0); MEAN CORPUSCULAR VOLUME 71.1 FL (78-98); RED BLOOD COUNT 4.45 X10'6 (4.20-5.60); WHITE BLOOD COUNT 14.2 X10'3 (4.5-11.0)
[2021-07-01 08:00] LABS: MEAN CORPUSCULAR HGB CONC 31.5 g/dL (33.0-36.5)
[2021-07-01] MEDS: CefTRIAXone/D5W-Rocephin 1gm 50 ML IV SCH (08:02)
[2021-07-01] MEDS: atorvastatin 10mg tablet PO SCH (08:03)
[2021-07-01] MEDS: furosemide 20 MG/2 ML vial IV SCH (08:03)
[2021-07-01] MEDS: aspirin 81mg tab.chew PO SCH (08:03)
[2021-07-01] MEDS: busPIRone 5mg tablet PO SCH ×2 (08:03→20:03)
[2021-07-01] MEDS: citalopram 20mg tablet PO SCH (08:03)
[2021-07-01] MEDS: docusate sod 100mg capsule PO SCH ×2 (08:04→19:38)
[2021-07-01] MEDS: famotidine 20mg tablet PO SCH ×2 (08:04→19:38)
[2021-07-01] MEDS: ferrous sulfate 325mg tablet PO SCH (08:04)
[2021-07-01] MEDS: apixaban 5mg tablet PO SCH ×2 (08:04→19:38)
[2021-07-01] MEDS: carVEDilol 3.125mg tablet PO SCH ×2 (08:04→20:00)
[2021-07-01] MEDS: spironolactone 25 MG tablet PO SCH (08:05)
[2021-07-01 11:00] VITALS: BP 107/49
[2021-07-01] MEDS ORDERED: LIDOcaine 2% 5ml jelly MM ONE (12:10)
[2021-07-01] MEDS: lisinopril 5mg tablet PO SCH (13:19)
[2021-07-01] MEDS: HYDROmorphone inj. 0.5 MG/0.5 ML DISP.SYRIN IV PRN (13:58)
[2021-07-01 15:00] VITALS: BP 92/42
--- NOTE | 2021-07-01 18:59 | NUR ---
Problems reprioritized. Patient report given, questions answered & plan of care reviewed with Karina RUSHING. Addendum: 07/01/21 at 1900 by Andrea Earl RN wrong patient
--- NOTE | 2021-07-01 19:01 | NUR ---
Problems reprioritized. Patient report given, questions answered & plan of care reviewed with Ce RUSHING.
[2021-07-01 19:59] VITALS: BP 97/44
[2021-07-01] MEDS: mirtazapine 15mg tablet PO SCH (20:03)
[2021-07-01 22:00] VITALS: BP 102/55
[2021-07-02] MEDS: HYDROcodone/acetaminophen 5mg/325mg tablet PO PRN (00:11)
[2021-07-02 02:00] VITALS: BP 113/49
[2021-07-02 06:01] LABS: EOSINOPHILS # (AUTO) 0.2 X10'3 (0-0.9); EOSINOPHILS % (AUTO) 1.6 % (0-6); MONOCYTES # (AUTO) 1.3 X10'3 (0-0.9)
[2021-07-02 06:05] LABS: BASOPHILS # (AUTO) 0.1 X10'3 (0-0.2); BASOPHILS % (AUTO) 0.6 % (0-1); LYMPHOCYTES # (AUTO) 1.8 X10'3 (1.1-4.8); LYMPHOCYTES % (AUTO) 15.3 % (21-51); MONOCYTES % (AUTO) 10.8 % (2-12); NEUTROPHILS # (AUTO) 8.6 X10'3 (1.8-7.7); NEUTROPHILS % (AUTO) 71.7 % (42-75); PLATELET COUNT 232 X10'3 (140-440); WHITE BLOOD COUNT 11.9 X10'3 (4.5-11.0)
[2021-07-02 06:36] LABS: ALANINE AMINOTRANSFERASE 20 U/L (12-78); ALBUMIN 2.2 G/DL (3.4-5.0); ALBUMIN/GLOBULIN RATIO 0.6 (1.1-1.5); ALKALINE PHOSPHATASE 207 IU/L (46-116); ANION GAP 15 (8-16); ASPARTATE AMINO TRANSFERASE 37 U/L (10-37); BILIRUBIN,TOTAL 0.8 MG/DL (0.1-1.0); BLOOD UREA NITROGEN 31 MG/DL (7-18); BUN/CREATININE RATIO 32.6 (6.6-38.0); CHLORIDE 101 MMOL/L (99-107); CREATININE 0.95 MG/DL (0.40-0.90); POTASSIUM 3.9 MMOL/L (3.5-5.1); SODIUM 136 MMOL/L (135-145); TOTAL CARBON DIOXIDE 20.2 MMOL/L (24-32); TOTAL PROTEIN 6.1 G/DL (6.4-8.2); eGFR 59 ML/MIN
[2021-07-02 06:38] LABS: GLUCOSE 84 MG/DL (70-104)
[2021-07-02 07:27] LABS: HEMATOCRIT 36.9 % (35.0-45.0); HEMOGLOBIN 11.7 g/dl (12.0-16.0); MEAN CORPUSCULAR HEMOGLOBIN 22.6 PG (27.0-31.0); MEAN CORPUSCULAR HGB CONC 31.8 g/dL (33.0-36.5); MEAN CORPUSCULAR VOLUME 71.1 FL (78-98); RED BLOOD COUNT 5.19 X10'6 (4.20-5.60); RED CELL DISTRIBUTION WIDTH 21.9 % (11.5-14.5)
[2021-07-02] MEDS: JUVEN Smoothie Arginine/Glut./Ca2+Bmb (Juven 19.3pkt) 240ml cup PO SCH ×2 (07:30→17:30)
[2021-07-02 08:26] LABS: PLATELET ESTIMATE NORMAL
[2021-07-02 08:27] LABS: ANISOCYTOSIS 3+; MICROCYTOSIS 1+
[2021-07-02 08:28] LABS: BURR CELLS 1+
[2021-07-02 08:29] LABS: POLYCHROMASIA 1+
[2021-07-02 08:31] LABS: SCHISTOCYTES FEW
[2021-07-02] MEDS ORDERED: VANCOMYCIN 1GM/200ML IVPB 200 ML IV SCH (09:30)
[2021-07-02 09:51] VITALS: BP 143/66
[2021-07-02] MEDS: spironolactone 25 MG tablet PO SCH (09:51)
[2021-07-02] MEDS: docusate sod 100mg capsule PO SCH ×2 (09:51→20:06)
[2021-07-02] MEDS: atorvastatin 10mg tablet PO SCH (09:52)
[2021-07-02] MEDS: citalopram 20mg tablet PO SCH (09:52)
[2021-07-02] MEDS: lisinopril 5mg tablet PO SCH (09:52)
[2021-07-02] MEDS: busPIRone 5mg tablet PO SCH ×3 (09:52→20:06)
[2021-07-02] MEDS: aspirin 81mg tab.chew PO SCH (09:52)
[2021-07-02] MEDS: furosemide 20 MG/2 ML vial IV SCH (09:53)
[2021-07-02] MEDS: ferrous sulfate 325mg tablet PO SCH (09:53)
[2021-07-02] MEDS: famotidine 20mg tablet PO SCH ×2 (09:53→20:07)
[2021-07-02] MEDS: apixaban 5mg tablet PO SCH ×2 (09:53→20:07)
[2021-07-02] MEDS: carVEDilol 3.125mg tablet PO SCH ×2 (09:53→20:07)
[2021-07-02] MEDS: CefTRIAXone/D5W-Rocephin 1gm 50 ML IV SCH (09:56)
[2021-07-02 18:00] VITALS: BP 133/60
[2021-07-02] MEDS: mirtazapine 15mg tablet PO SCH (20:07)
[2021-07-02] MEDS: temazepam 15mg capsule PO PRN (20:07)
[2021-07-02 22:00] VITALS: BP 128/70
[2021-07-03 02:00] VITALS: BP 113/50
[2021-07-03 05:55] LABS: BASOPHILS # (AUTO) 0.1 X10'3 (0-0.2); BASOPHILS % (AUTO) 0.7 % (0-1); EOSINOPHILS # (AUTO) 0.3 X10'3 (0-0.9); EOSINOPHILS % (AUTO) 1.9 % (0-6); HEMATOCRIT 37.4 % (35.0-45.0); HEMOGLOBIN 10.9 g/dl (12.0-16.0); LYMPHOCYTES # (AUTO) 1.9 X10'3 (1.1-4.8); MEAN CORPUSCULAR HEMOGLOBIN 21.4 PG (27.0-31.0); MEAN CORPUSCULAR HGB CONC 29.1 g/dL (33.0-36.5); MEAN CORPUSCULAR VOLUME 73.7 FL (78-98); MEAN PLATELET VOLUME 8.1 FL (7.4-10.4); MONOCYTES # (AUTO) 1.3 X10'3 (0-0.9); NEUTROPHILS # (AUTO) 9.4 X10'3 (1.8-7.7); NEUTROPHILS % (AUTO) 72.4 % (42-75); PLATELET COUNT 249 X10'3 (140-440); RED BLOOD COUNT 5.07 X10'6 (4.20-5.60); RED CELL DISTRIBUTION WIDTH 22.5 % (11.5-14.5); WHITE BLOOD COUNT 12.9 X10'3 (4.5-11.0)
[2021-07-03 06:00] VITALS: BP 110/60
[2021-07-03 06:42] LABS: ALANINE AMINOTRANSFERASE 18 U/L (12-78); ALBUMIN 1.9 G/DL (3.4-5.0); ALBUMIN/GLOBULIN RATIO 0.5 (1.1-1.5); ALKALINE PHOSPHATASE 166 IU/L (46-116); ANION GAP 11 (8-16); ASPARTATE AMINO TRANSFERASE 24 U/L (10-37); BILIRUBIN,TOTAL 0.9 MG/DL (0.1-1.0); BLOOD UREA NITROGEN 24 MG/DL (7-18); BUN/CREATININE RATIO 25.8 (6.6-38.0); CALCIUM 7.6 MG/DL (8.5-10.1); CHLORIDE 105 MMOL/L (99-107); CREATININE 0.93 MG/DL (0.40-0.90); POTASSIUM 3.2 MMOL/L (3.5-5.1); SODIUM 139 MMOL/L (135-145); TOTAL CARBON DIOXIDE 23.4 MMOL/L (24-32); TOTAL PROTEIN 5.5 G/DL (6.4-8.2); eGFR 60 ML/MIN
[2021-07-03 06:49] LABS: GLUCOSE 73 MG/DL (70-104)
[2021-07-03] MEDS: JUVEN Smoothie Arginine/Glut./Ca2+Bmb (Juven 19.3pkt) 240ml cup PO SCH ×2 (07:30→10:29)
[2021-07-03] MEDS: carVEDilol 3.125mg tablet PO SCH ×2 (08:00→20:26)
[2021-07-03] MEDS: furosemide 20 MG/2 ML vial IV SCH (08:00)
[2021-07-03] MEDS: lisinopril 5mg tablet PO SCH (08:00)
[2021-07-03] MEDS: docusate sod 100mg capsule PO SCH ×2 (08:00→20:26)
[2021-07-03] MEDS: spironolactone 25 MG tablet PO SCH (08:30)
[2021-07-03] MEDS: HYDROcodone/acetaminophen 5mg/325mg tablet PO PRN ×2 (08:47→22:19)
[2021-07-03] MEDS: CefTRIAXone/D5W-Rocephin 1gm 50 ML IV SCH (10:18)
[2021-07-03] MEDS: famotidine 20mg tablet PO SCH ×2 (10:24→20:28)
[2021-07-03] MEDS: ferrous sulfate 325mg tablet PO SCH (10:24)
[2021-07-03] MEDS: busPIRone 5mg tablet PO SCH ×3 (10:24→20:25)
[2021-07-03] MEDS: aspirin 81mg tab.chew PO SCH (10:25)
[2021-07-03] MEDS: atorvastatin 10mg tablet PO SCH (10:26)
[2021-07-03] MEDS: apixaban 5mg tablet PO SCH (10:26)
[2021-07-03] MEDS: citalopram 20mg tablet PO SCH (10:26)
[2021-07-03 11:00] VITALS: BP 115/88
[2021-07-03] MEDS: VANCOMYCIN 1GM/200ML IVPB 200 ML IV SCH (11:14)
--- NOTE | 2021-07-03 13:55 | NUR ---
Reassessment: Per WOC notes 07/03 pt with DTI to right heel, wound to right dorsal foot, unstageable PU right popliteal area, stage I to coccyx, and DTI to right buttock. Pt overall eating well with average 75% PO intake since 07/01. Pt with good acceptance of ONS, averaging 75% PO intake x 3 ONS. Overall pt meeting estimated nutrient needs with adequate protein to assist with wound healing. No documented BM since admit. Pt receiving routine bowel care BID and with additional PRN bowel care available. D/w dietary to send prunes and prune juice with next meal to assist with bowel regularity. Will continue to follow and monitor need for further nutrition intervention. Recommendations: 1. Continue sodium restricted diet per MD 2. Niko smoothie BIDBD 3. Routine bowel care 4. Weekly scaled weights Addendum: 07/03/21 at [address] Amended: Links added.
[2021-07-03 15:00] VITALS: BP 129/62
[2021-07-03 18:00] VITALS: BP 133/79
[2021-07-03] MEDS ORDERED: heparin 10,000 units/1 ML INJ IV ONE (19:15)
[2021-07-03] MEDS: mirtazapine 15mg tablet PO SCH (20:26)
[2021-07-03] MEDS: prednisone 10mg tablet PO SCH (20:38)
[2021-07-03 22:00] VITALS: BP 136/69
[2021-07-03 23:00] LABS: APTT 32 SECONDS (22-32)
[2021-07-03] MEDS: heparin 25,000 UNIT/250ml bag 250 ML IV SCH (23:28)
[2021-07-03] MEDS: temazepam 15mg capsule PO PRN (23:28)
[2021-07-04] MEDS: prednisone 10mg tablet PO SCH ×2 (01:19→08:13)
[2021-07-04 02:00] VITALS: BP 123/75
[2021-07-04 06:00] VITALS: BP 127/65
[2021-07-04 06:42] LABS: ALANINE AMINOTRANSFERASE 21 U/L (12-78); ALBUMIN 1.7 G/DL (3.4-5.0); ALBUMIN/GLOBULIN RATIO 0.5 (1.1-1.5); ALKALINE PHOSPHATASE 156 IU/L (46-116); ANION GAP 11 (8-16); ASPARTATE AMINO TRANSFERASE 19 U/L (10-37); BILIRUBIN,TOTAL 0.8 MG/DL (0.1-1.0); BLOOD UREA NITROGEN 19 MG/DL (7-18); CALCIUM 7.8 MG/DL (8.5-10.1); CHLORIDE 106 MMOL/L (99-107); CREATININE 0.76 MG/DL (0.40-0.90); POTASSIUM 3.4 MMOL/L (3.5-5.1); SODIUM 141 MMOL/L (135-145); TOTAL CARBON DIOXIDE 24.2 MMOL/L (24-32); TOTAL PROTEIN 5.1 G/DL (6.4-8.2); eGFR 76 ML/MIN
[2021-07-04 06:44] LABS: BASOPHILS % (AUTO) 0.2 % (0-1); EOSINOPHILS % (AUTO) 0 % (0-6); GLUCOSE 145 MG/DL (70-104); HEMATOCRIT 33.9 % (35.0-45.0); HEMOGLOBIN 10.3 g/dl (12.0-16.0); LYMPHOCYTES # (AUTO) 0.9 X10'3 (1.1-4.8); LYMPHOCYTES % (AUTO) 7.9 % (21-51); MEAN CORPUSCULAR HGB CONC 30.4 g/dL (33.0-36.5); MEAN CORPUSCULAR VOLUME 72.1 FL (78-98); MONOCYTES # (AUTO) 0.2 X10'3 (0-0.9); MONOCYTES % (AUTO) 1.6 % (2-12); NEUTROPHILS % (AUTO) 90.3 % (42-75); PLATELET COUNT 268 X10'3 (140-440); RED CELL DISTRIBUTION WIDTH 23.3 % (11.5-14.5)
[2021-07-04 07:00] VITALS: BP 127/65
[2021-07-04] MEDS ORDERED: diphenhydrAMINE 25mg capsule PO ONE (07:00)
[2021-07-04] MEDS: heparin 25,000 UNIT/250ml bag 250 ML IV SCH ×2 (07:03→12:28)
[2021-07-04] MEDS: CefTRIAXone/D5W-Rocephin 1gm 50 ML IV SCH (07:46)
[2021-07-04] MEDS: carVEDilol 3.125mg tablet PO SCH ×2 (08:00→19:29)
[2021-07-04] MEDS: ferrous sulfate 325mg tablet PO SCH (08:02)
[2021-07-04] MEDS: aspirin 81mg tab.chew PO SCH (08:02)
[2021-07-04] MEDS: docusate sod 100mg capsule PO SCH ×2 (08:02→19:29)
[2021-07-04] MEDS: famotidine 20mg tablet PO SCH ×2 (08:03→19:29)
[2021-07-04] MEDS: atorvastatin 10mg tablet PO SCH (08:03)
[2021-07-04] MEDS: citalopram 20mg tablet PO SCH (08:04)
[2021-07-04] MEDS: busPIRone 5mg tablet PO SCH ×3 (08:04→20:02)
[2021-07-04] MEDS: lisinopril 5mg tablet PO SCH (08:05)
[2021-07-04] MEDS: JUVEN Smoothie Arginine/Glut./Ca2+Bmb (Juven 19.3pkt) 240ml cup PO SCH ×2 (08:15→17:30)
[2021-07-04] MEDS: furosemide 20 MG/2 ML vial IV SCH (08:15)
[2021-07-04] MEDS: spironolactone 25 MG tablet PO SCH (08:24)
[2021-07-04 08:32] LABS: PLATELET ESTIMATE NORMAL
[2021-07-04 08:33] LABS: ANISOCYTOSIS 3+; ELLIPTOCYTES FEW; MICROCYTOSIS 1+; POIKILOCYTOSIS FEW; POLYCHROMASIA FEW; TARGET CELLS FEW
[2021-07-04] MEDS: VANCOMYCIN 1GM/200ML IVPB 200 ML IV SCH (09:34)
[2021-07-04 11:00] VITALS: BP 140/74
[2021-07-04] MEDS: HYDROcodone/acetaminophen 5mg/325mg tablet PO PRN (13:36)
[2021-07-04 15:00] VITALS: BP 123/75
[2021-07-04 18:00] VITALS: BP 121/61
[2021-07-04] MEDS: temazepam 15mg capsule PO PRN (19:29)
[2021-07-04] MEDS: mirtazapine 15mg tablet PO SCH (20:02)
[2021-07-04] MEDS: heparin 10,000 units/1 ML INJ IV PRN (20:51)
[2021-07-05] VITALS (9 sets, daily range): BP systolic 99–126; BP diastolic 53–74
--- NOTE | 2021-07-05 06:53 | NUR ---
Problems reprioritized. Patient report given, questions answered & plan of care reviewed with Lucita.
[2021-07-05] MEDS ORDERED: HYDROmorphone/PF 0.2 MG/ML SYRINGE IV PRN ×2 (07:30)
[2021-07-05] MEDS ORDERED: fentaNYL/PF 50MCG/1 ML 2ML syringe IV PRN ×2 (07:30)
[2021-07-05] MEDS ORDERED: ondansetron/PF 4mg/2ml inj IV PRN (07:30)
[2021-07-05] MEDS: JUVEN Smoothie Arginine/Glut./Ca2+Bmb (Juven 19.3pkt) 240ml cup PO SCH (07:30)
[2021-07-05] MEDS ORDERED: enalaprilat dihydrate 2.5mg/2ml vial IV PRN (07:30)
[2021-07-05] MEDS ORDERED: ringers solution, lacted 1,000 ML IV SCH (07:30)
[2021-07-05] MEDS ORDERED: hydrALAZINE 20mg/ml inj. IV PRN (07:30)
[2021-07-05] MEDS ORDERED: etomidate 2mg/ml inj. ONE (07:43)
[2021-07-05] MEDS ORDERED: fentaNYL/PF 50MCG/1 ML 2ML syringe ONE (07:43)
[2021-07-05] MEDS ORDERED: midazolam 1 mg/ML 2ml injection ONE (07:43)
[2021-07-05] MEDS ORDERED: ondansetron/PF 4mg/2ml inj ONE (08:00)
[2021-07-05] MEDS ORDERED: sevoflurane 250ml liquid IH ONE (08:00)
[2021-07-05] MEDS ORDERED: dexamethasone sod phosphate 10mg/ml inj ONE (08:00)
[2021-07-05] MEDS ORDERED: VANCOMYCIN LEVEL IV ONE (08:30)
--- NOTE | 2021-07-05 08:55 | NUR ---
Received from OR via BED, accompanied by Anesthesiologist and report given by Anesthesiologist. PATIENT WAKING UP, NO S/S OF PAIN, V/S WNL, SCD ON, 20G TO LUE,BLE DRESSING TO THIGH AREA CDI. F/C DRAINING CLEAR YELLOW URINE.
--- NOTE | 2021-07-05 09:35 | NUR ---
PATIENT SLEEPY BUT ORIENTED X4, DENIES PAIN, V/S WNL, SCD ON, 20G TO LUE,BLE DRESSING TO THIGH AREA CDI. F/C DRAINING CLEAR YELLOW URINE. PATIENT TAKEN TO ROOM WITH ALL BELONGINGS AND HOOKED UP TO MONITORS IN ROOM AND GIVEN CALL LIGHT, REPORT GIVEN TO RN WHO HAS TAKEN OVER PATIENT CARE.
[2021-07-05] MEDS: furosemide 20 MG/2 ML vial IV SCH (12:23)
[2021-07-05] MEDS: citalopram 20mg tablet PO SCH (12:26)
[2021-07-05] MEDS: docusate sod 100mg capsule PO SCH ×2 (12:26→20:34)
[2021-07-05] MEDS: famotidine 20mg tablet PO SCH ×2 (12:26→20:33)
[2021-07-05] MEDS: busPIRone 5mg tablet PO SCH ×3 (12:27→20:33)
[2021-07-05] MEDS: ferrous sulfate 325mg tablet PO SCH (12:27)
[2021-07-05] MEDS: carVEDilol 3.125mg tablet PO SCH ×2 (12:28→20:34)
[2021-07-05] MEDS: atorvastatin 10mg tablet PO SCH (12:28)
[2021-07-05] MEDS: lisinopril 5mg tablet PO SCH (12:29)
[2021-07-05] MEDS: spironolactone 25 MG tablet PO SCH (12:29)
[2021-07-05] MEDS: HYDROcodone/acetaminophen 5mg/325mg tablet PO PRN ×2 (12:41→20:33)
[2021-07-05] MEDS: aspirin 81mg tab.chew PO SCH (12:41)
[2021-07-05] MEDS: CefTRIAXone/D5W-Rocephin 1gm 50 ML IV SCH (12:42)
[2021-07-05 12:53] LABS: BASOPHILS % (AUTO) 0.1 % (0-1); EOSINOPHILS % (AUTO) 0.1 % (0-6); HEMATOCRIT 40.1 % (35.0-45.0); HEMOGLOBIN 11.9 g/dl (12.0-16.0); LYMPHOCYTES # (AUTO) 1.1 X10'3 (1.1-4.8); LYMPHOCYTES % (AUTO) 6.2 % (21-51); MEAN CORPUSCULAR HGB CONC 29.8 g/dL (33.0-36.5); MEAN CORPUSCULAR VOLUME 73.9 FL (78-98); MEAN PLATELET VOLUME 8.2 FL (7.4-10.4); MONOCYTES # (AUTO) 0.5 X10'3 (0-0.9); MONOCYTES % (AUTO) 2.7 % (2-12); NEUTROPHILS # (AUTO) 15.7 X10'3 (1.8-7.7); NEUTROPHILS % (AUTO) 90.9 % (42-75); PLATELET COUNT 386 X10'3 (140-440); RED BLOOD COUNT 5.43 X10'6 (4.20-5.60); RED CELL DISTRIBUTION WIDTH 23.4 % (11.5-14.5); WHITE BLOOD COUNT 17.3 X10'3 (4.5-11.0)
[2021-07-05 12:59] LABS: ALANINE AMINOTRANSFERASE 23 U/L (12-78); ALBUMIN 2.3 G/DL (3.4-5.0); ALBUMIN/GLOBULIN RATIO 0.5 (1.1-1.5); ALKALINE PHOSPHATASE 171 IU/L (46-116); ANION GAP 8 (8-16); ASPARTATE AMINO TRANSFERASE 29 U/L (10-37); BILIRUBIN,TOTAL 0.9 MG/DL (0.1-1.0); BLOOD UREA NITROGEN 21 MG/DL (7-18); BUN/CREATININE RATIO 25.9 (6.6-38.0); CALCIUM 8.4 MG/DL (8.5-10.1); CHLORIDE 105 MMOL/L (99-107); CREATININE 0.81 MG/DL (0.40-0.90); POTASSIUM 3.4 MMOL/L (3.5-5.1); SODIUM 141 MMOL/L (135-145); TOTAL CARBON DIOXIDE 27.7 MMOL/L (24-32); TOTAL PROTEIN 6.8 G/DL (6.4-8.2); eGFR 71 ML/MIN
[2021-07-05 13:01] LABS: GLUCOSE 106 MG/DL (70-104)
[2021-07-05 14:20] LABS: PLATELET ESTIMATE NORMAL; POLYCHROMASIA FEW
[2021-07-05 14:21] LABS: ANISOCYTOSIS 3+; BURR CELLS FEW; ELLIPTOCYTES FEW; HYPOCHROMASIA 2+; MICROCYTOSIS 1+; TARGET CELLS FEW; TEAR DROP CELLS FEW
[2021-07-05] MEDS: linezolid 600mg tablet PO SCH (15:46)
[2021-07-05] MEDS: heparin 10,000 units/1 ML INJ IV PRN (16:34)
[2021-07-05] MEDS: heparin 25,000 UNIT/250ml bag 250 ML IV SCH (16:34)
[2021-07-05] MEDS: temazepam 15mg capsule PO PRN (20:33)
[2021-07-05] MEDS: mirtazapine 15mg tablet PO SCH (20:34)
--- NOTE | 2021-07-05 22:58 | NUR ---
Patient transfer to [facility] unit with belongings in a stable condition report given to the nurse in charge of patient, heparin infusing as order, PRN pain medication administered as ordered
[2021-07-05 23:57] LABS: APTT 30 SECONDS (22-32)
[2021-07-06] VITALS: BP 106/52
--- NOTE | 2021-07-06 | NUR ---
Assumed care of patient from Odell RUSHING traveller.
[2021-07-06] MEDS: heparin 25,000 UNIT/250ml bag 250 ML IV SCH (00:37)
[2021-07-06] MEDS: heparin 10,000 units/1 ML INJ IV PRN (00:43)
--- NOTE | 2021-07-06 06:50 | NUR ---
Problems reprioritized. Patient report given, questions answered & plan of care reviewed with Minoo RUSHING.
--- NOTE | 2021-07-06 06:54 | NUR ---
Patient in room TAIWO 352. I have received report from keon thompson and had the opportunity to ask questions and assume patient care.
[2021-07-06 07:11] VITALS: BP 101/50
--- NOTE | 2021-07-06 07:38 | NUR ---
RECD CALL FROM LAB RE: PTT CAME BACK WITH NO VALUE, NO CLOT FORMATION. STATES THAT LAB WILL COME REDRAW. HEP RUNNING AT 1400. PREVIOUS TO THAT WAS 1000. PER PROTOCOL HEP SHOULD HAVE BEEN ONLY INCREASED 200 MG/KG/H. SHOULD BE RUNNING AT 1200 NOT 1400. NOTIFIED PRIMARY NOC RN. WILL WAIT FOR LAB TO REDRAW AND ADDRESS NEEDED.
[2021-07-06 07:41] LABS: BASOPHILS % (AUTO) 0 % (0-1); EOSINOPHILS % (AUTO) 0 % (0-6); HEMATOCRIT 32.3 % (35.0-45.0); HEMOGLOBIN 9.7 g/dl (12.0-16.0); LYMPHOCYTES # (AUTO) 2.4 X10'3 (1.1-4.8); LYMPHOCYTES % (AUTO) 19.4 % (21-51); MEAN CORPUSCULAR HEMOGLOBIN 21.9 PG (27.0-31.0); MEAN PLATELET VOLUME 8.4 FL (7.4-10.4); MONOCYTES # (AUTO) 1.3 X10'3 (0-0.9); MONOCYTES % (AUTO) 10.7 % (2-12); NEUTROPHILS # (AUTO) 8.8 X10'3 (1.8-7.7); NEUTROPHILS % (AUTO) 69.9 % (42-75); PLATELET COUNT 253 X10'3 (140-440); RED BLOOD COUNT 4.42 X10'6 (4.20-5.60); RED CELL DISTRIBUTION WIDTH 23.7 % (11.5-14.5); WHITE BLOOD COUNT 12.6 X10'3 (4.5-11.0)
[2021-07-06] MEDS: spironolactone 25 MG tablet PO SCH (07:43)
[2021-07-06] MEDS: lisinopril 5mg tablet PO SCH (07:43)
[2021-07-06] MEDS: carVEDilol 3.125mg tablet PO SCH ×2 (07:44→22:19)
[2021-07-06] MEDS: furosemide 20 MG/2 ML vial IV SCH (07:51)
[2021-07-06] MEDS: JUVEN Smoothie Arginine/Glut./Ca2+Bmb (Juven 19.3pkt) 240ml cup PO SCH ×2 (07:54→17:32)
[2021-07-06 08:12] LABS: ALANINE AMINOTRANSFERASE 27 U/L (12-78); ALBUMIN 1.7 G/DL (3.4-5.0); ALBUMIN/GLOBULIN RATIO 0.5 (1.1-1.5); ALKALINE PHOSPHATASE 134 IU/L (46-116); ANION GAP 9 (8-16); ASPARTATE AMINO TRANSFERASE 29 U/L (10-37); BILIRUBIN,TOTAL 0.5 MG/DL (0.1-1.0); BLOOD UREA NITROGEN 21 MG/DL (7-18); BUN/CREATININE RATIO 30.4 (6.6-38.0); CALCIUM 7.5 MG/DL (8.5-10.1); CHLORIDE 108 MMOL/L (99-107); CREATININE 0.69 MG/DL (0.40-0.90); POTASSIUM 3.5 MMOL/L (3.5-5.1); SODIUM 144 MMOL/L (135-145); TOTAL CARBON DIOXIDE 26.7 MMOL/L (24-32); eGFR 85 ML/MIN
[2021-07-06] MEDS: busPIRone 5mg tablet PO SCH ×3 (08:12→22:13)
[2021-07-06] MEDS: HYDROcodone/acetaminophen 5mg/325mg tablet PO PRN ×3 (08:12→22:18)
[2021-07-06] MEDS: citalopram 20mg tablet PO SCH (08:12)
[2021-07-06] MEDS: ferrous sulfate 325mg tablet PO SCH (08:12)
[2021-07-06] MEDS: docusate sod 100mg capsule PO SCH ×2 (08:12→22:13)
[2021-07-06] MEDS: famotidine 20mg tablet PO SCH ×2 (08:12→22:14)
[2021-07-06] MEDS: aspirin 81mg tab.chew PO SCH (08:12)
[2021-07-06] MEDS: atorvastatin 10mg tablet PO SCH (08:12)
[2021-07-06 08:46] LABS: GLUCOSE 93 MG/DL (70-104)
[2021-07-06 08:57] LABS: MICROCYTOSIS 1+; PLATELET ESTIMATE NORMAL
[2021-07-06 08:58] LABS: ANISOCYTOSIS 3+; BURR CELLS FEW; ELLIPTOCYTES FEW; SCHISTOCYTES FEW
[2021-07-06] MEDS: linezolid 600mg tablet PO SCH ×2 (09:37→22:19)
[2021-07-06 11:00] VITALS: BP 115/57
[2021-07-06] MEDS: HYDROmorphone inj. 0.5 MG/0.5 ML DISP.SYRIN IV PRN (13:20)
--- NOTE | 2021-07-06 13:46 | NUR ---
[employer] Consult: Pt currently on [employer]. psychology intern provided verbal and written low tyramine diet education and RD contact information. Addendum: 07/06/21 at 1347 by Luke Varela - Process Mold Technician RD Amended: Links added. Addendum: 07/06/21 at [address] I have reviewed assessment by campus interviews intern
--- NOTE | 2021-07-06 13:54 | NUR ---
[employer] Consult: Pt currently on [employer]. academic intern provided verbal and written low tyramine diet education and RD contact information. Reassessment: Per WOC notes 07/03 pt with DTI to right heel, wound to right dorsal foot, unstageable PU right popliteal area, stage I to coccyx, and DTI to right buttock. Pt overall eating well with average 75% PO intake since 07/01. Pt with good acceptance of ONS, averaging 75% PO intake x 3 ONS. Overall pt meeting estimated nutrient needs with adequate protein to assist with wound healing. No documented BM since admit. Pt receiving routine bowel care BID and with additional PRN bowel care available. D/w dietary to send prunes and prune juice with next meal to assist with bowel regularity. Will continue to follow and monitor need for further nutrition intervention. Recommendations: 1. Continue sodium restricted diet per MD 2. Niko smoothie BIDBD 3. Routine bowel care 4. Weekly scaled weights Addendum: 07/06/21 at 1354 by Luke Varela - Complaint Coordinator RD Amended: Links added. Addendum: 07/06/21 at [address] I have reviewed assessment by record label intern
--- NOTE | 2021-07-06 18:35 | NUR ---
Patient in room TAIWO 352. I have received report from Minoo RUSHING and had the opportunity to ask questions and assume patient care.
[2021-07-06 19:00] VITALS: BP 105/52
[2021-07-06] MEDS: mirtazapine 15mg tablet PO SCH (22:18)
[2021-07-06] MEDS: enoxaparin 60mg/0.6ml syringe SUBCUT SCH (22:25)
[2021-07-07] VITALS: BP 95/51
[2021-07-07] MEDS: HYDROmorphone inj. 0.5 MG/0.5 ML DISP.SYRIN IV PRN ×2 (04:32→15:57)
[2021-07-07 06:20] LABS: BASOPHILS % (AUTO) 0.3 % (0-1); EOSINOPHILS # (AUTO) 0.3 X10'3 (0-0.9); EOSINOPHILS % (AUTO) 2.6 % (0-6); LYMPHOCYTES # (AUTO) 3.9 X10'3 (1.1-4.8); LYMPHOCYTES % (AUTO) 36.5 % (21-51); MEAN PLATELET VOLUME 7.9 FL (7.4-10.4); MONOCYTES # (AUTO) 1.1 X10'3 (0-0.9); MONOCYTES % (AUTO) 10.4 % (2-12); NEUTROPHILS # (AUTO) 5.3 X10'3 (1.8-7.7); NEUTROPHILS % (AUTO) 50.2 % (42-75); PLATELET COUNT 269 X10'3 (140-440)
--- NOTE | 2021-07-07 06:30 | NUR ---
Patient in room TAIWO 352. I have received report from PRIYANK RUSHING and had the opportunity to ask questions and assume patient care.
--- NOTE | 2021-07-07 06:30 | NUR ---
Patient report given to Minoo RUSHING.
[2021-07-07 06:57] LABS: HEMATOCRIT 33.4 % (35.0-45.0); HEMOGLOBIN 10.7 g/dl (12.0-16.0); MEAN CORPUSCULAR HEMOGLOBIN 22.8 PG (27.0-31.0); MEAN CORPUSCULAR VOLUME 71.3 FL (78-98); RED BLOOD COUNT 4.68 X10'6 (4.20-5.60); RED CELL DISTRIBUTION WIDTH 23.2 % (11.5-14.5); WHITE BLOOD COUNT 10.8 X10'3 (4.5-11.0)
[2021-07-07 07:03] LABS: ALANINE AMINOTRANSFERASE 32 U/L (12-78); ALBUMIN 1.9 G/DL (3.4-5.0); ALBUMIN/GLOBULIN RATIO 0.6 (1.1-1.5); ALKALINE PHOSPHATASE 155 IU/L (46-116); ANION GAP 9 (8-16); ASPARTATE AMINO TRANSFERASE 31 U/L (10-37); BILIRUBIN,TOTAL 0.6 MG/DL (0.1-1.0); BLOOD UREA NITROGEN 26 MG/DL (7-18); BUN/CREATININE RATIO 32.1 (6.6-38.0); CALCIUM 7.3 MG/DL (8.5-10.1); CHLORIDE 108 MMOL/L (99-107); CREATININE 0.81 MG/DL (0.40-0.90); POTASSIUM 3.9 MMOL/L (3.5-5.1); SODIUM 144 MMOL/L (135-145); TOTAL CARBON DIOXIDE 26.9 MMOL/L (24-32); TOTAL PROTEIN 5.3 G/DL (6.4-8.2); eGFR 71 ML/MIN
[2021-07-07 07:06] LABS: GLUCOSE 68 MG/DL (70-104)
[2021-07-07] MEDS: lisinopril 5mg tablet PO SCH (08:00)
[2021-07-07] MEDS: JUVEN Smoothie Arginine/Glut./Ca2+Bmb (Juven 19.3pkt) 240ml cup PO SCH ×2 (08:17→17:41)
[2021-07-07] MEDS: spironolactone 25 MG tablet PO SCH (08:30)
[2021-07-07] MEDS: atorvastatin 10mg tablet PO SCH (08:32)
[2021-07-07] MEDS: aspirin 81mg tab.chew PO SCH (08:32)
[2021-07-07] MEDS: docusate sod 100mg capsule PO SCH ×2 (08:33→22:18)
[2021-07-07] MEDS: famotidine 20mg tablet PO SCH ×2 (08:33→22:18)
[2021-07-07] MEDS: busPIRone 5mg tablet PO SCH ×3 (08:33→22:20)
[2021-07-07] MEDS: furosemide 20 MG/2 ML vial IV SCH (08:33)
[2021-07-07] MEDS: citalopram 20mg tablet PO SCH (08:33)
[2021-07-07] MEDS: carVEDilol 3.125mg tablet PO SCH ×2 (08:33→22:24)
[2021-07-07] MEDS: ferrous sulfate 325mg tablet PO SCH (08:33)
[2021-07-07] MEDS: linezolid 600mg tablet PO SCH ×2 (08:37→22:18)
[2021-07-07] MEDS: enoxaparin 60mg/0.6ml syringe SUBCUT SCH ×2 (08:38→22:23)
[2021-07-07 08:42] VITALS: BP 119/68
--- NOTE | 2021-07-07 12:09 | NUR ---
Reassessment: Pt continues on Sodium Restricted diet w/ moderate PO intake, avg 77% x 11 meals and 55% x 5 ONS, though missing some documentation. Overall, meeting nutrient needs at this time. Pt noted to need minimal assistance w/ meals. No BM documented though RN states pt just had a large BM today, receiving routine colace. No change to recommendations, will continue to monitor. Recommendations: 1. Continue sodium restricted diet per MD 2. Niko smoothie BIDBD 3. Routine bowel care 4. Weekly scaled weights Addendum: 07/07/21 at [address] Amended: Links added.
[2021-07-07 13:03] VITALS: BP 108/57
--- NOTE | 2021-07-07 17:40 | NUR ---
FC DC [id number]
--- NOTE | 2021-07-07 18:20 | NUR ---
Patient in room TAIWO 352. I have received report from Minoo RUSHING and had the opportunity to ask questions and assume patient care.
--- NOTE | 2021-07-07 18:25 | NUR ---
Problems reprioritized. Patient report given, questions answered & plan of care reviewed with PRIYANK RUSHING.
[2021-07-07 20:00] VITALS: BP 150/67
[2021-07-07] MEDS: mirtazapine 15mg tablet PO SCH (22:19)
[2021-07-08] VITALS: BP 122/48
[2021-07-08] MEDS: HYDROcodone/acetaminophen 5mg/325mg tablet PO PRN (04:34)
--- NOTE | 2021-07-08 06:30 | NUR ---
Problems reprioritized. Patient report given, questions answered & plan of care reviewed with Marj RUSHING.
--- NOTE | 2021-07-08 06:30 | NUR ---
Patient in room TAIWO 352. I have received report from Azucena RUSHING and had the opportunity to ask questions and assume patient care.
[2021-07-08 06:47] LABS: BASOPHILS % (AUTO) 0.5 % (0-1); EOSINOPHILS # (AUTO) 0.2 X10'3 (0-0.9); EOSINOPHILS % (AUTO) 2.8 % (0-6); LYMPHOCYTES # (AUTO) 2.4 X10'3 (1.1-4.8); LYMPHOCYTES % (AUTO) 27.7 % (21-51); MEAN PLATELET VOLUME 8.8 FL (7.4-10.4); MONOCYTES # (AUTO) 0.7 X10'3 (0-0.9); MONOCYTES % (AUTO) 8.6 % (2-12); NEUTROPHILS # (AUTO) 5.1 X10'3 (1.8-7.7); NEUTROPHILS % (AUTO) 60.4 % (42-75); PLATELET COUNT 282 X10'3 (140-440); RED BLOOD COUNT 4.84 X10'6 (4.20-5.60); WHITE BLOOD COUNT 8.5 X10'3 (4.5-11.0)
[2021-07-08 07:00] VITALS: BP 127/69
[2021-07-08 07:11] LABS: HEMOGLOBIN 11.1 g/dl (12.0-16.0); MEAN CORPUSCULAR HEMOGLOBIN 22.4 PG (27.0-31.0); MEAN CORPUSCULAR HGB CONC 31.6 g/dL (33.0-36.5); MEAN CORPUSCULAR VOLUME 70.9 FL (78-98)
[2021-07-08 07:12] LABS: RED CELL DISTRIBUTION WIDTH 23.7 % (11.5-14.5)
[2021-07-08] MEDS: JUVEN Smoothie Arginine/Glut./Ca2+Bmb (Juven 19.3pkt) 240ml cup PO SCH ×2 (07:30→17:56)
[2021-07-08 07:32] LABS: ALANINE AMINOTRANSFERASE 26 U/L (12-78); ALBUMIN 1.9 G/DL (3.4-5.0); ALBUMIN/GLOBULIN RATIO 0.6 (1.1-1.5); ALKALINE PHOSPHATASE 131 IU/L (46-116); ANION GAP 8 (8-16); ASPARTATE AMINO TRANSFERASE 19 U/L (10-37); BLOOD UREA NITROGEN 22 MG/DL (7-18); BUN/CREATININE RATIO 30.1 (6.6-38.0); CALCIUM 7.7 MG/DL (8.5-10.1); CHLORIDE 108 MMOL/L (99-107); CREATININE 0.73 MG/DL (0.40-0.90); POTASSIUM 3.5 MMOL/L (3.5-5.1); SODIUM 144 MMOL/L (135-145); TOTAL CARBON DIOXIDE 27.9 MMOL/L (24-32); TOTAL PROTEIN 5.3 G/DL (6.4-8.2); eGFR 80 ML/MIN
[2021-07-08 07:35] LABS: GLUCOSE 70 MG/DL (70-104)
[2021-07-08] MEDS: lisinopril 5mg tablet PO SCH (08:00)
[2021-07-08] MEDS: famotidine 20mg tablet PO SCH ×2 (08:00→20:39)
[2021-07-08] MEDS: aspirin 81mg tab.chew PO SCH (09:22)
[2021-07-08] MEDS: spironolactone 25 MG tablet PO SCH (09:22)
[2021-07-08] MEDS: atorvastatin 10mg tablet PO SCH (09:22)
[2021-07-08] MEDS: carVEDilol 3.125mg tablet PO SCH ×2 (09:23→20:39)
[2021-07-08] MEDS: docusate sod 100mg capsule PO SCH ×2 (09:23→20:39)
[2021-07-08] MEDS: linezolid 600mg tablet PO SCH ×2 (09:23→20:39)
[2021-07-08] MEDS: busPIRone 5mg tablet PO SCH ×3 (09:23→20:41)
[2021-07-08] MEDS: ferrous sulfate 325mg tablet PO SCH (09:24)
[2021-07-08] MEDS: citalopram 20mg tablet PO SCH (09:24)
[2021-07-08] MEDS: enoxaparin 60mg/0.6ml syringe SUBCUT SCH ×2 (09:25→20:40)
[2021-07-08 11:00] VITALS: BP 118/68
--- NOTE | 2021-07-08 13:41 | NUR ---
PRESSURE ULCER EDUCATION: DEFINITION: A pressure ulcer is an area of skin that breaks down when you stay in one position too long. The constant pressure against the skin reduces the blood flow to that area and the affected tissue dies. CAUSES: "Being bedridden or in a wheelchair "Fragile skin "Having a chronic condition, such as diabetes or vascular disease "Inability to move certain parts of your body without assistance "Older age "Incontinence of urine or stool SYMPTOMS: "A reddened area that DOES NOT turn white when pressed on - this can be the beginning of a pressure ulcer "A blister, deep sore or a crater - these can be advanced pressure ulcers FIRST AID: "Relieve the pressure on this area "Keep the area clean and dry "Call your primary doctor if you see any of the above symptoms "DO NOT massage the area "DO NOT use a donut shaped or ring shaped pillow- these actually interfere with the blood flow and cause complications PREVENTION: "Check for pressure ulcers everyday "Change position at least every two hours to relieve pressure "Use items that help relieve pressure- pillows, sheepskin, foam padding, and powders. "Keep skin clean and dry "Eat healthy well balanced meals "Exercise daily IF YOU SEE ANY OF THESE SYMPTOMS WHILE IN THE HOSPITAL - TELL YOUR NURSE IMMEDIATELY. IF YOU SEE ANY OF THESE SYMPTOMS WHILE AT HOME OR HAVE ANY QUESTIONS OR CONCERNS ABOUT PRESSURE ULCERS - CALL YOUR PRIMARY DOCTOR IMMEDIATELY. Addendum: 07/08/21 at 1342 by Tiffany Escoto RN Amended: Links added.
--- NOTE | 2021-07-08 13:41 | NUR ---
WOUND INFECTION EDUCATION PROVIDED BY WOUND CARE 1. Patient instructed to call their primary doctor, or go the ED immediately if any of the following symptoms occur: * Increased pain in wound * Increase in drainage from the wound * Redness in the skin surrounding the wound * Warmth in the skin surrounding the wound * Bleeding from the wound * Temperature of 101 or greater 2. If any of these occur while in the hospital tell a nurse immediately. Addendum: 07/08/21 at 1342 by Tiffany Escoto RN Amended: Links added.
--- NOTE | 2021-07-08 18:52 | NUR ---
Problems reprioritized. Patient report given, questions answered & plan of care reviewed with KOREY RUSHING TRAVELER.
[2021-07-08 20:00] VITALS: BP 125/63
[2021-07-08] MEDS: mirtazapine 15mg tablet PO SCH (20:41)
[2021-07-09] VITALS: BP 123/67
[2021-07-09 06:19] LABS: BASOPHILS # (AUTO) 0.1 X10'3 (0-0.2); BASOPHILS % (AUTO) 0.8 % (0-1); EOSINOPHILS # (AUTO) 0.1 X10'3 (0-0.9); EOSINOPHILS % (AUTO) 1.8 % (0-6); LYMPHOCYTES # (AUTO) 2.4 X10'3 (1.1-4.8); LYMPHOCYTES % (AUTO) 33.7 % (21-51); MEAN PLATELET VOLUME 8.7 FL (7.4-10.4); MONOCYTES # (AUTO) 0.6 X10'3 (0-0.9); NEUTROPHILS # (AUTO) 3.9 X10'3 (1.8-7.7); NEUTROPHILS % (AUTO) 54.7 % (42-75); WHITE BLOOD COUNT 7.1 X10'3 (4.5-11.0)
[2021-07-09 06:34] LABS: ALANINE AMINOTRANSFERASE 21 U/L (12-78); ALBUMIN 1.9 G/DL (3.4-5.0); ALBUMIN/GLOBULIN RATIO 0.6 (1.1-1.5); ALKALINE PHOSPHATASE 131 IU/L (46-116); ANION GAP 10 (8-16); ASPARTATE AMINO TRANSFERASE 20 U/L (10-37); BLOOD UREA NITROGEN 24 MG/DL (7-18); BUN/CREATININE RATIO 28.2 (6.6-38.0); CALCIUM 8.1 MG/DL (8.5-10.1); CHLORIDE 109 MMOL/L (99-107); CREATININE 0.85 MG/DL (0.40-0.90); POTASSIUM 3.6 MMOL/L (3.5-5.1); SODIUM 146 MMOL/L (135-145); TOTAL CARBON DIOXIDE 27.5 MMOL/L (24-32); eGFR 67 ML/MIN
--- NOTE | 2021-07-09 06:36 | NUR ---
Problems reprioritized. Patient report given, questions answered & plan of care reviewed with Marj.
[2021-07-09 06:41] LABS: GLUCOSE 86 MG/DL (70-104)
--- NOTE | 2021-07-09 06:45 | NUR ---
Patient in room TAWIO 352. I have received report from Ghazal RUSHING Traveler and had the opportunity to ask questions and assume patient care.
[2021-07-09 07:00] VITALS: BP 147/79
[2021-07-09 07:03] LABS: HEMOGLOBIN 11.2 g/dl (12.0-16.0); RED BLOOD COUNT 4.92 X10'6 (4.20-5.60)
[2021-07-09 07:04] LABS: HEMATOCRIT 35.1 % (35.0-45.0); MEAN CORPUSCULAR HEMOGLOBIN 22.7 PG (27.0-31.0); MEAN CORPUSCULAR HGB CONC 31.8 g/dL (33.0-36.5); MEAN CORPUSCULAR VOLUME 71.4 FL (78-98); PLATELET COUNT 263 X10'3 (140-440); RED CELL DISTRIBUTION WIDTH 24.1 % (11.5-14.5)
[2021-07-09] MEDS: JUVEN Smoothie Arginine/Glut./Ca2+Bmb (Juven 19.3pkt) 240ml cup PO SCH ×2 (07:36→17:45)
[2021-07-09] MEDS: docusate sod 100mg capsule PO SCH ×2 (08:06→20:09)
[2021-07-09] MEDS: atorvastatin 10mg tablet PO SCH (08:06)
[2021-07-09] MEDS: busPIRone 5mg tablet PO SCH ×3 (08:06→20:09)
[2021-07-09] MEDS: HYDROcodone/acetaminophen 5mg/325mg tablet PO PRN ×2 (08:06→20:16)
[2021-07-09] MEDS: famotidine 20mg tablet PO SCH ×2 (08:06→20:08)
[2021-07-09] MEDS: citalopram 20mg tablet PO SCH (08:07)
[2021-07-09] MEDS: aspirin 81mg tab.chew PO SCH (08:07)
[2021-07-09] MEDS: lisinopril 5mg tablet PO SCH (08:07)
[2021-07-09] MEDS: spironolactone 25 MG tablet PO SCH (08:07)
[2021-07-09] MEDS: carVEDilol 3.125mg tablet PO SCH ×2 (08:07→20:10)
[2021-07-09] MEDS: ferrous sulfate 325mg tablet PO SCH (08:08)
[2021-07-09] MEDS: enoxaparin 60mg/0.6ml syringe SUBCUT SCH ×2 (08:08→20:08)
[2021-07-09] MEDS: linezolid 600mg tablet PO SCH ×2 (08:09→20:09)
[2021-07-09 13:06] VITALS: BP 126/74
[2021-07-09 18:00] VITALS: BP 120/62
--- NOTE | 2021-07-09 18:19 | NUR ---
Problems reprioritized. Patient report given, questions answered & plan of care reviewed with Odell Hughes Traveler.
--- NOTE | 2021-07-09 18:33 | NUR ---
Problems reprioritized. Patient report given, questions answered & plan of care reviewed with Prudence RN.
--- NOTE | 2021-07-09 18:53 | NUR ---
Patient in room TAIWO 352. I have received report from GRISELDA RUSHING and had the opportunity to ask questions and assume patient care.
[2021-07-09] MEDS: mirtazapine 15mg tablet PO SCH (20:08)
[2021-07-10] VITALS: BP 102/54
[2021-07-10 05:57] LABS: BASOPHILS # (AUTO) 0.1 X10'3 (0-0.2); BASOPHILS % (AUTO) 0.8 % (0-1); EOSINOPHILS # (AUTO) 0.1 X10'3 (0-0.9); EOSINOPHILS % (AUTO) 1.2 % (0-6); HEMATOCRIT 34.5 % (35.0-45.0); LYMPHOCYTES # (AUTO) 2.7 X10'3 (1.1-4.8); LYMPHOCYTES % (AUTO) 39.2 % (21-51); MEAN PLATELET VOLUME 8.2 FL (7.4-10.4); MONOCYTES # (AUTO) 0.5 X10'3 (0-0.9); MONOCYTES % (AUTO) 7.3 % (2-12); NEUTROPHILS # (AUTO) 3.6 X10'3 (1.8-7.7); NEUTROPHILS % (AUTO) 51.5 % (42-75); PLATELET COUNT 271 X10'3 (140-440); WHITE BLOOD COUNT 6.9 X10'3 (4.5-11.0)
[2021-07-10 06:24] LABS: ALANINE AMINOTRANSFERASE 21 U/L (12-78); ALBUMIN 2.1 G/DL (3.4-5.0); ALBUMIN/GLOBULIN RATIO 0.6 (1.1-1.5); ALKALINE PHOSPHATASE 127 IU/L (46-116); ANION GAP 9 (8-16); ASPARTATE AMINO TRANSFERASE 16 U/L (10-37); BILIRUBIN,TOTAL 1.1 MG/DL (0.1-1.0); BLOOD UREA NITROGEN 26 MG/DL (7-18); BUN/CREATININE RATIO 26.8 (6.6-38.0); CALCIUM 7.8 MG/DL (8.5-10.1); CHLORIDE 109 MMOL/L (99-107); CREATININE 0.97 MG/DL (0.40-0.90); POTASSIUM 3.6 MMOL/L (3.5-5.1); SODIUM 144 MMOL/L (135-145); TOTAL CARBON DIOXIDE 26.5 MMOL/L (24-32); TOTAL PROTEIN 5.6 G/DL (6.4-8.2); eGFR 57 ML/MIN
--- NOTE | 2021-07-10 06:24 | NUR ---
Problems reprioritized. Patient report given, questions answered & plan of care reviewed with GRISELDA.
[2021-07-10 06:28] LABS: MEAN CORPUSCULAR HEMOGLOBIN 22.8 PG (27.0-31.0); MEAN CORPUSCULAR HGB CONC 31.8 g/dL (33.0-36.5); MEAN CORPUSCULAR VOLUME 71.8 FL (78-98); RED BLOOD COUNT 4.81 X10'6 (4.20-5.60); RED CELL DISTRIBUTION WIDTH 24.1 % (11.5-14.5)
[2021-07-10 06:38] LABS: GLUCOSE 105 MG/DL (70-104); PLATELET ESTIMATE NORMAL
[2021-07-10 06:39] LABS: ANISOCYTOSIS 3+; HYPOCHROMASIA 1+; MICROCYTOSIS 1+; POLYCHROMASIA 1+
[2021-07-10 06:40] LABS: ELLIPTOCYTES 1+; SCHISTOCYTES FEW
--- NOTE | 2021-07-10 07:04 | NUR ---
Patient in room TAIWO 352. I have received report from clover RUSHING and had the opportunity to ask questions and assume patient care.
[2021-07-10] MEDS: JUVEN Smoothie Arginine/Glut./Ca2+Bmb (Juven 19.3pkt) 240ml cup PO SCH ×2 (07:54→17:13)
[2021-07-10] MEDS: enoxaparin 60mg/0.6ml syringe SUBCUT SCH (07:57)
[2021-07-10 08:00] VITALS: BP 126/73
[2021-07-10] MEDS: docusate sod 100mg capsule PO SCH (08:00)
[2021-07-10] MEDS: ferrous sulfate 325mg tablet PO SCH (08:01)
[2021-07-10] MEDS: aspirin 81mg tab.chew PO SCH (08:02)
[2021-07-10] MEDS: carVEDilol 3.125mg tablet PO SCH ×2 (08:02→20:56)
[2021-07-10] MEDS: lisinopril 5mg tablet PO SCH (08:02)
[2021-07-10] MEDS: citalopram 20mg tablet PO SCH (08:02)
[2021-07-10] MEDS: atorvastatin 10mg tablet PO SCH (08:03)
[2021-07-10] MEDS: spironolactone 25 MG tablet PO SCH (08:03)
[2021-07-10] MEDS: famotidine 20mg tablet PO SCH ×2 (08:03→20:56)
[2021-07-10] MEDS: linezolid 600mg tablet PO SCH ×2 (08:03→20:56)
[2021-07-10] MEDS: busPIRone 5mg tablet PO SCH ×3 (08:04→20:55)
[2021-07-10 11:00] VITALS: BP 126/55
[2021-07-10] MEDS ORDERED: loperamide 2mg capsule PO PRN (14:30)
--- NOTE | 2021-07-10 15:34 | NUR ---
Student documentation: I have reviewed and agree with all interventions, assessments performed and documented by Naa ordriguez [facility] student.
[2021-07-10] MEDS: HYDROcodone/acetaminophen 5mg/325mg tablet PO PRN ×2 (16:47→21:45)
[2021-07-10 18:00] VITALS: BP 133/76
--- NOTE | 2021-07-10 18:00 | NUR ---
Patient in room TAIWO 352. I have received report from GRISELDA RUSHING and had the opportunity to ask questions and assume patient care.
--- NOTE | 2021-07-10 18:33 | NUR ---
Problems reprioritized. Patient report given, questions answered & plan of care reviewed with prudence RN.
[2021-07-10] MEDS: apixaban 5mg tablet PO SCH (20:56)
[2021-07-10] MEDS: mirtazapine 15mg tablet PO SCH (20:56)
[2021-07-10] MEDS: megestrol acetate 400mg/10ml UD oral suspension PO SCH (21:46)
[2021-07-11 00:46] VITALS: BP 105/47
--- NOTE | 2021-07-11 06:33 | NUR ---
Problems reprioritized. Patient report given, questions answered & plan of care reviewed with ARTURO RUSHING.
--- NOTE | 2021-07-11 06:38 | NUR ---
Patient in room TAIWO 352. I have received report from Yas RUSHING and had the opportunity to ask questions and assume patient care.
[2021-07-11 06:59] LABS: ALANINE AMINOTRANSFERASE 17 U/L (12-78); ALBUMIN 2.1 G/DL (3.4-5.0); ALBUMIN/GLOBULIN RATIO 0.6 (1.1-1.5); ALKALINE PHOSPHATASE 112 IU/L (46-116); ANION GAP 10 (8-16); ASPARTATE AMINO TRANSFERASE 16 U/L (10-37); BLOOD UREA NITROGEN 28 MG/DL (7-18); BUN/CREATININE RATIO 27.5 (6.6-38.0); CALCIUM 8.2 MG/DL (8.5-10.1); CHLORIDE 109 MMOL/L (99-107); CREATININE 1.02 MG/DL (0.40-0.90); POTASSIUM 3.6 MMOL/L (3.5-5.1); SODIUM 145 MMOL/L (135-145); TOTAL CARBON DIOXIDE 26.2 MMOL/L (24-32); TOTAL PROTEIN 5.4 G/DL (6.4-8.2); eGFR 54 ML/MIN
[2021-07-11 07:00] LABS: GLUCOSE 84 MG/DL (70-104)
[2021-07-11] MEDS: JUVEN Smoothie Arginine/Glut./Ca2+Bmb (Juven 19.3pkt) 240ml cup PO SCH ×2 (07:30→17:32)
[2021-07-11 08:00] VITALS: BP 119/62
[2021-07-11] MEDS: spironolactone 25 MG tablet PO SCH (08:29)
[2021-07-11] MEDS: megestrol acetate 400mg/10ml UD oral suspension PO SCH ×2 (08:29→20:20)
[2021-07-11] MEDS: aspirin 81mg tab.chew PO SCH (08:29)
[2021-07-11] MEDS: apixaban 5mg tablet PO SCH ×2 (08:30→20:20)
[2021-07-11] MEDS: ferrous sulfate 325mg tablet PO SCH (08:30)
[2021-07-11] MEDS: atorvastatin 10mg tablet PO SCH (08:30)
[2021-07-11] MEDS: HYDROcodone/acetaminophen 5mg/325mg tablet PO PRN ×2 (08:30→20:19)
[2021-07-11] MEDS: citalopram 20mg tablet PO SCH (08:30)
[2021-07-11] MEDS: busPIRone 5mg tablet PO SCH ×3 (08:31→20:19)
[2021-07-11] MEDS: lisinopril 5mg tablet PO SCH (08:31)
[2021-07-11] MEDS: famotidine 20mg tablet PO SCH ×2 (08:31→20:20)
[2021-07-11] MEDS: carVEDilol 3.125mg tablet PO SCH ×2 (08:31→20:19)
[2021-07-11] MEDS: linezolid 600mg tablet PO SCH ×2 (08:38→20:19)
[2021-07-11 10:40] LABS: BASOPHILS # (AUTO) 0.1 X10'3 (0-0.2); BASOPHILS % (AUTO) 0.8 % (0-1); EOSINOPHILS # (AUTO) 0.1 X10'3 (0-0.9); EOSINOPHILS % (AUTO) 1.5 % (0-6); HEMATOCRIT 34.7 % (35.0-45.0); HEMOGLOBIN 10.2 g/dl (12.0-16.0); LYMPHOCYTES # (AUTO) 2.5 X10'3 (1.1-4.8); LYMPHOCYTES % (AUTO) 28.1 % (21-51); MEAN CORPUSCULAR HEMOGLOBIN 21.7 PG (27.0-31.0); MEAN CORPUSCULAR HGB CONC 29.4 g/dL (33.0-36.5); MEAN PLATELET VOLUME 8.2 FL (7.4-10.4); MONOCYTES # (AUTO) 0.5 X10'3 (0-0.9); MONOCYTES % (AUTO) 5.8 % (2-12); NEUTROPHILS # (AUTO) 5.7 X10'3 (1.8-7.7); NEUTROPHILS % (AUTO) 63.8 % (42-75); PLATELET COUNT 250 X10'3 (140-440); RED BLOOD COUNT 4.68 X10'6 (4.20-5.60); WHITE BLOOD COUNT 8.9 X10'3 (4.5-11.0)
[2021-07-11 11:00] VITALS: BP 125/70
[2021-07-11 11:37] LABS: PLATELET ESTIMATE NORMAL; POIKILOCYTOSIS FEW
[2021-07-11 11:38] LABS: ANISOCYTOSIS 3+; ELLIPTOCYTES FEW; MICROCYTOSIS 1+; TARGET CELLS FEW; TEAR DROP CELLS FEW
[2021-07-11 18:00] VITALS: BP 107/67
--- NOTE | 2021-07-11 18:18 | NUR ---
Problems reprioritized. Patient report given, questions answered & plan of care reviewed with Prudence RN.
--- NOTE | 2021-07-11 18:44 | NUR ---
Patient in room TAIWO 352. I have received report from CRISTA AND ADRIAN RUSHING and had the opportunity to ask questions and assume patient care.
[2021-07-11] MEDS: mirtazapine 15mg tablet PO SCH (20:19)
--- NOTE | 2021-07-11 23:01 | NUR ---
Problems reprioritized. Patient report given, questions answered & plan of care reviewed with SAWYER RUSHING.
[2021-07-12] VITALS: BP 112/62
[2021-07-12 06:36] LABS: ALANINE AMINOTRANSFERASE 19 U/L (12-78); ALBUMIN 2.2 G/DL (3.4-5.0); ALBUMIN/GLOBULIN RATIO 0.7 (1.1-1.5); ALKALINE PHOSPHATASE 120 IU/L (46-116); ANION GAP 11 (8-16); ASPARTATE AMINO TRANSFERASE 19 U/L (10-37); BILIRUBIN,TOTAL 1.2 MG/DL (0.1-1.0); BLOOD UREA NITROGEN 30 MG/DL (7-18); BUN/CREATININE RATIO 29.4 (6.6-38.0); CALCIUM 7.9 MG/DL (8.5-10.1); CHLORIDE 108 MMOL/L (99-107); CREATININE 1.02 MG/DL (0.40-0.90); POTASSIUM 3.6 MMOL/L (3.5-5.1); SODIUM 143 MMOL/L (135-145); TOTAL CARBON DIOXIDE 24.3 MMOL/L (24-32); TOTAL PROTEIN 5.5 G/DL (6.4-8.2); eGFR 54 ML/MIN
[2021-07-12 06:37] LABS: GLUCOSE 69 MG/DL (70-104)
[2021-07-12 06:57] LABS: BASOPHILS # (AUTO) 0.1 X10'3 (0-0.2); BASOPHILS % (AUTO) 1.5 % (0-1); EOSINOPHILS # (AUTO) 0.1 X10'3 (0-0.9); EOSINOPHILS % (AUTO) 1.5 % (0-6); LYMPHOCYTES % (AUTO) 43.6 % (21-51); MEAN PLATELET VOLUME 8.8 FL (7.4-10.4); MONOCYTES # (AUTO) 0.4 X10'3 (0-0.9); MONOCYTES % (AUTO) 6.5 % (2-12); NEUTROPHILS # (AUTO) 3.2 X10'3 (1.8-7.7); NEUTROPHILS % (AUTO) 46.9 % (42-75); PLATELET COUNT 200 X10'3 (140-440); RED BLOOD COUNT 4.43 X10'6 (4.20-5.60); WHITE BLOOD COUNT 6.9 X10'3 (4.5-11.0)
[2021-07-12 07:00] VITALS: BP 123/62
--- NOTE | 2021-07-12 07:12 | NUR ---
07/11/21 3560 agree with rn 2000 assessment
[2021-07-12] MEDS: JUVEN Smoothie Arginine/Glut./Ca2+Bmb (Juven 19.3pkt) 240ml cup PO SCH ×2 (07:30→17:33)
[2021-07-12 07:49] LABS: HEMOGLOBIN 10.1 g/dl (12.0-16.0); MEAN CORPUSCULAR VOLUME 76.7 FL (78-98)
[2021-07-12 07:50] LABS: MEAN CORPUSCULAR HEMOGLOBIN 22.9 PG (27.0-31.0); MEAN CORPUSCULAR HGB CONC 29.9 g/dL (33.0-36.5); RED CELL DISTRIBUTION WIDTH 24.6 % (11.5-14.5)
[2021-07-12] MEDS ORDERED: lisinopril 5mg tablet PO SCH (08:00)
[2021-07-12 08:08] LABS: PLATELET ESTIMATE NORMAL
[2021-07-12 08:09] LABS: ANISOCYTOSIS 3+; ELLIPTOCYTES FEW; HYPOCHROMASIA 1+; MICROCYTOSIS 1+; POLYCHROMASIA 1+; SCHISTOCYTES FEW; TEAR DROP CELLS FEW
[2021-07-12] MEDS: aspirin 81mg tab.chew PO SCH (09:02)
[2021-07-12] MEDS: apixaban 5mg tablet PO SCH ×2 (09:02→21:09)
[2021-07-12] MEDS: famotidine 20mg tablet PO SCH (09:04)
[2021-07-12] MEDS: citalopram 20mg tablet PO SCH (09:04)
[2021-07-12] MEDS: busPIRone 5mg tablet PO SCH ×3 (09:05→21:10)
[2021-07-12] MEDS: spironolactone 25 MG tablet PO SCH (09:05)
[2021-07-12] MEDS: linezolid 600mg tablet PO SCH ×2 (09:05→21:09)
[2021-07-12] MEDS: atorvastatin 10mg tablet PO SCH (09:06)
[2021-07-12] MEDS: carVEDilol 3.125mg tablet PO SCH ×2 (09:06→21:09)
[2021-07-12] MEDS: megestrol acetate 400mg/10ml UD oral suspension PO SCH ×2 (09:06→21:09)
[2021-07-12] MEDS: ferrous sulfate 325mg tablet PO SCH (09:06)
[2021-07-12 11:46] VITALS: BP 122/62
[2021-07-12] MEDS: HYDROcodone/acetaminophen 5mg/325mg tablet PO PRN (13:00)
[2021-07-12 18:00] VITALS: BP 112/59
--- NOTE | 2021-07-12 18:43 | NUR ---
Report given to Murray RUSHING, all questions answered. Patient resting comfortably at this time.
[2021-07-12] MEDS: mirtazapine 15mg tablet PO SCH (21:10)
[2021-07-13 00:02] VITALS: BP 121/67
--- NOTE | 2021-07-13 03:16 | NUR ---
BID DRSG CHANGES DONE ON RIGHT THIGH, RIGHT POPLITEAL, AND LEFT THIGH.
--- NOTE | 2021-07-13 06:29 | NUR ---
76Problems reprioritized. Patient report given, questions answered & plan of care reviewed with NADIA. Addendum: 07/13/21 at 0629 by Brady Gorman RN Amended: Links added.
--- NOTE | 2021-07-13 06:30 | NUR ---
Patient in room TAIWO 352. I have received report from NOC RN and had the opportunity to ask questions and assume patient care. gf/sn
[2021-07-13 06:54] LABS: BASOPHILS # (AUTO) 0.1 X10'3 (0-0.2); BASOPHILS % (AUTO) 1.1 % (0-1); EOSINOPHILS # (AUTO) 0.1 X10'3 (0-0.9); EOSINOPHILS % (AUTO) 1.8 % (0-6); LYMPHOCYTES # (AUTO) 3.2 X10'3 (1.1-4.8); LYMPHOCYTES % (AUTO) 38.7 % (21-51); MEAN PLATELET VOLUME 8.9 FL (7.4-10.4); MONOCYTES # (AUTO) 0.3 X10'3 (0-0.9); MONOCYTES % (AUTO) 4.2 % (2-12); NEUTROPHILS # (AUTO) 4.4 X10'3 (1.8-7.7); NEUTROPHILS % (AUTO) 54.2 % (42-75); PLATELET COUNT 189 X10'3 (140-440); RED CELL DISTRIBUTION WIDTH 25.5 % (11.5-14.5); WHITE BLOOD COUNT 8.2 X10'3 (4.5-11.0)
[2021-07-13 07:14] LABS: ALANINE AMINOTRANSFERASE 16 U/L (12-78); ALBUMIN 2.1 G/DL (3.4-5.0); ALBUMIN/GLOBULIN RATIO 0.7 (1.1-1.5); ALKALINE PHOSPHATASE 110 IU/L (46-116); ANION GAP 12 (8-16); ASPARTATE AMINO TRANSFERASE 16 U/L (10-37); BILIRUBIN,TOTAL 1.3 MG/DL (0.1-1.0); BLOOD UREA NITROGEN 31 MG/DL (7-18); BUN/CREATININE RATIO 29.5 (6.6-38.0); CALCIUM 7.9 MG/DL (8.5-10.1); CHLORIDE 109 MMOL/L (99-107); CREATININE 1.05 MG/DL (0.40-0.90); POTASSIUM 3.6 MMOL/L (3.5-5.1); SODIUM 143 MMOL/L (135-145); TOTAL CARBON DIOXIDE 22.5 MMOL/L (24-32); TOTAL PROTEIN 5.3 G/DL (6.4-8.2); eGFR 52 ML/MIN
[2021-07-13 07:18] LABS: GLUCOSE 65 MG/DL (70-104)
[2021-07-13 07:24] VITALS: BP 117/66
[2021-07-13] MEDS: apixaban 5mg tablet PO SCH ×2 (08:07→20:06)
[2021-07-13] MEDS: busPIRone 5mg tablet PO SCH ×3 (08:08→21:07)
[2021-07-13] MEDS: atorvastatin 10mg tablet PO SCH (08:09)
[2021-07-13] MEDS: linezolid 600mg tablet PO SCH ×2 (08:09→20:06)
[2021-07-13] MEDS: ferrous sulfate 325mg tablet PO SCH (08:09)
[2021-07-13] MEDS: megestrol acetate 400mg/10ml UD oral suspension PO SCH ×2 (08:09→20:06)
[2021-07-13] MEDS: aspirin 81mg tab.chew PO SCH (08:09)
[2021-07-13] MEDS: citalopram 20mg tablet PO SCH (08:09)
[2021-07-13] MEDS: famotidine 20mg tablet PO SCH (08:09)
[2021-07-13] MEDS: carVEDilol 3.125mg tablet PO SCH ×2 (08:20→20:06)
[2021-07-13] MEDS: spironolactone 25 MG tablet PO SCH (08:20)
[2021-07-13] MEDS: JUVEN Smoothie Arginine/Glut./Ca2+Bmb (Juven 19.3pkt) 240ml cup PO SCH ×2 (08:21→17:31)
[2021-07-13] MEDS: lisinopril 2.5mg tablet PO SCH (08:50)
[2021-07-13 08:55] LABS: HEMATOCRIT 34.5 % (35.0-45.0); HEMOGLOBIN 10.2 g/dl (12.0-16.0); MEAN CORPUSCULAR VOLUME 74.3 FL (78-98); RED BLOOD COUNT 4.64 X10'6 (4.20-5.60)
[2021-07-13 08:56] LABS: MEAN CORPUSCULAR HGB CONC 29.6 g/dL (33.0-36.5)
--- NOTE | 2021-07-13 09:16 | NUR ---
Reassessment: Pt has had significant decrease in PO intake since last RD assessment, now avg 21% x 15 meals w/ refusals and 16% x 9 ONS not meeting needs. Pt has been started on megace 07/10. IF PO does not improve, consider supplemental TF to help meet nutritional needs. LBM 07/11, was previously stooling multiple times per day per documentation. Noted wt decreased 10kg in one day going from bed scale to standing scale, unsure of accuracy. Will continue to monitor and make recommendations as appropriate. Recommendations: 1. Continue sodium restricted diet per MD 2. Niko smoothie BIDBD 3. Appetite stimulant per MD 4. IF PO does not improve consider supplemental TF 5. Routine bowel care 6. Weekly scaled weights Addendum: 07/13/21 at [address] Amended: Links added.
--- NOTE | 2021-07-13 10:40 | NUR ---
mortar mixer at bedside doing dressing changes.
[2021-07-13 12:15] VITALS: BP 116/70
[2021-07-13] MEDS: HYDROcodone/acetaminophen 5mg/325mg tablet PO PRN (17:13)
--- NOTE | 2021-07-13 17:58 | NUR ---
Student documentation: I have reviewed all interventions, assessments performed and documented by SN Quita . Student Medication Administration: For this medication-pass time frame, all medication were reviewed, dispensed, administered and documented per hospital policy by SN Quita.
--- NOTE | 2021-07-13 18:11 | NUR ---
Problems reprioritized. Patient report given, questions answered & plan of care reviewed with
[2021-07-13 19:00] VITALS: BP 110/59
[2021-07-13] MEDS: mirtazapine 15mg tablet PO SCH (21:08)
[2021-07-14 00:20] VITALS: BP 128/63
[2021-07-14] MEDS: HYDROcodone/acetaminophen 5mg/325mg tablet PO PRN ×3 (03:25→20:45)
--- NOTE | 2021-07-14 06:19 | NUR ---
Problems reprioritized. Patient report given, questions answered & plan of care reviewed with Meagan. Addendum: 07/14/21 at 0619 by Brady Gorman RN Amended: Links added.
--- NOTE | 2021-07-14 06:29 | NUR ---
Patient in room TAIWO 352. I have received report from Murray and had the opportunity to ask questions and assume patient care.
[2021-07-14 07:04] VITALS: BP 109/68
[2021-07-14] MEDS: JUVEN Smoothie Arginine/Glut./Ca2+Bmb (Juven 19.3pkt) 240ml cup PO SCH (07:30)
[2021-07-14] MEDS: citalopram 20mg tablet PO SCH (08:14)
[2021-07-14] MEDS: famotidine 20mg tablet PO SCH (08:15)
[2021-07-14] MEDS: lisinopril 2.5mg tablet PO SCH (08:15)
[2021-07-14] MEDS: apixaban 5mg tablet PO SCH ×2 (08:15→20:22)
[2021-07-14] MEDS: ferrous sulfate 325mg tablet PO SCH (08:15)
[2021-07-14] MEDS: aspirin 81mg tab.chew PO SCH (08:15)
[2021-07-14] MEDS: atorvastatin 10mg tablet PO SCH (08:15)
[2021-07-14] MEDS: busPIRone 5mg tablet PO SCH ×3 (08:16→20:22)
[2021-07-14] MEDS: carVEDilol 3.125mg tablet PO SCH ×3 (08:16→20:22)
[2021-07-14] MEDS: megestrol acetate 400mg/10ml UD oral suspension PO SCH ×2 (08:16→20:23)
--- NOTE | 2021-07-14 08:26 | NUR ---
СЕРГЕЙ TC: Pt refusing Niko smoothies though is requesting Ensures; DASH recommends stopping Niko to avoid further wasting and Ensure Enlive TIDWM if MD agreeable. Addendum: 07/14/21 at [address] Amended: Links added.
[2021-07-14] MEDS: spironolactone 25 MG tablet PO SCH (09:11)
[2021-07-14 11:16] VITALS: BP 149/67
--- NOTE | 2021-07-14 13:30 | NUR ---
Dr. Karthik bangura at this time. Says Jose drains will be left in place for weeks longer. Addendum: 07/14/21 at 1331 by Meagan Al RN Amended: Links added.
--- NOTE | 2021-07-14 17:58 | NUR ---
Student documentation: I have reviewed all interventions, assessments performed and documented by SN Quita. Student Medication Administration: For this medication-pass time frame, all medication were reviewed, dispensed, administered and documented per hospital policy by SN Quita.
[2021-07-14 18:00] VITALS: BP 99/45
--- NOTE | 2021-07-14 18:35 | NUR ---
Patient in room TAIWO 352. I have received report from NADIA RUSHING and had the opportunity to ask questions and assume patient care.
[2021-07-14] MEDS: lactose-reduced food (Ensure Enlive) - 237ml bottle PO SCH (19:00)
[2021-07-14] MEDS: mirtazapine 15mg tablet PO SCH (20:22)
[2021-07-15 00:13] VITALS: BP 113/66
--- NOTE | 2021-07-15 06:16 | NUR ---
Problems reprioritized. Patient report given, questions answered & plan of care reviewed with GRISELDA RUSHING.
[2021-07-15 06:43] LABS: BASOPHILS # (AUTO) 0.1 X10'3 (0-0.2); MEAN PLATELET VOLUME 8.6 FL (7.4-10.4); MONOCYTES # (AUTO) 0.3 X10'3 (0-0.9)
[2021-07-15 06:45] LABS: BASOPHILS % (AUTO) 1.7 % (0-1); EOSINOPHILS # (AUTO) 0.2 X10'3 (0-0.9); EOSINOPHILS % (AUTO) 2.2 % (0-6); LYMPHOCYTES # (AUTO) 3.6 X10'3 (1.1-4.8); LYMPHOCYTES % (AUTO) 45.7 % (21-51); MONOCYTES % (AUTO) 3.7 % (2-12); NEUTROPHILS # (AUTO) 3.7 X10'3 (1.8-7.7); NEUTROPHILS % (AUTO) 46.7 % (42-75); PLATELET COUNT 156 X10'3 (140-440); WHITE BLOOD COUNT 7.9 X10'3 (4.5-11.0)
[2021-07-15 07:38] LABS: ALANINE AMINOTRANSFERASE 19 U/L (12-78); ALBUMIN 2.5 G/DL (3.4-5.0); ALBUMIN/GLOBULIN RATIO 0.6 (1.1-1.5); ANION GAP 10 (8-16); ASPARTATE AMINO TRANSFERASE 20 U/L (10-37); BLOOD UREA NITROGEN 31 MG/DL (7-18); BUN/CREATININE RATIO 27.4 (6.6-38.0); CALCIUM 8.2 MG/DL (8.5-10.1); CHLORIDE 110 MMOL/L (99-107); CREATININE 1.13 MG/DL (0.40-0.90); HEMATOCRIT 36.1 % (35.0-45.0); HEMOGLOBIN 11.4 g/dl (12.0-16.0); MEAN CORPUSCULAR HEMOGLOBIN 22.9 PG (27.0-31.0); MEAN CORPUSCULAR HGB CONC 31.8 g/dL (33.0-36.5); MEAN CORPUSCULAR VOLUME 72.1 FL (78-98); POTASSIUM 4.1 MMOL/L (3.5-5.1); RED CELL DISTRIBUTION WIDTH 24.8 % (11.5-14.5); SODIUM 142 MMOL/L (135-145); TOTAL PROTEIN 6.4 G/DL (6.4-8.2); eGFR 48 ML/MIN
[2021-07-15 07:41] LABS: GLUCOSE 84 MG/DL (70-104)
[2021-07-15] MEDS: lisinopril 2.5mg tablet PO SCH (08:00)
[2021-07-15] MEDS: lactose-reduced food (Ensure Enlive) - 237ml bottle PO SCH ×3 (08:00→18:02)
[2021-07-15 08:31] VITALS: BP 115/59
[2021-07-15] MEDS: atorvastatin 10mg tablet PO SCH (08:41)
[2021-07-15] MEDS: citalopram 20mg tablet PO SCH (08:41)
[2021-07-15] MEDS: carVEDilol 3.125mg tablet PO SCH ×2 (08:41→20:11)
[2021-07-15] MEDS: aspirin 81mg tab.chew PO SCH (08:42)
[2021-07-15] MEDS: busPIRone 5mg tablet PO SCH ×3 (08:42→20:11)
[2021-07-15] MEDS: megestrol acetate 400mg/10ml UD oral suspension PO SCH ×2 (08:42→20:17)
[2021-07-15] MEDS: apixaban 5mg tablet PO SCH ×2 (08:42→20:10)
[2021-07-15] MEDS: spironolactone 25 MG tablet PO SCH (08:43)
[2021-07-15] MEDS: famotidine 20mg tablet PO SCH (08:46)
[2021-07-15] MEDS: ferrous sulfate 325mg tablet PO SCH (08:46)
[2021-07-15 11:36] VITALS: BP 93/64
[2021-07-15] MEDS ORDERED: SPIR25TA PO (11:48)
[2021-07-15] MEDS ORDERED: MEGE400O6 PO (11:48)
[2021-07-15] MEDS ORDERED: BUSP15TA3 PO (11:48)
[2021-07-15] MEDS ORDERED: MULT-1074 PO (11:50)
[2021-07-15] MEDS ORDERED: LACT-237 PO (11:50)
--- NOTE | 2021-07-15 13:12 | NUR ---
pagemena Lomeli regarding pt's DC orders. Pt states she is homeless, spoke to Sister Mohini and she says she cannot take her back. pages Yani and Dr Chester aware.
[2021-07-15] MEDS: HYDROcodone/acetaminophen 5mg/325mg tablet PO PRN ×2 (13:46→20:11)
[2021-07-15 16:26] LABS: NUCLEATED RED BLOOD CELLS 1 /100WBC (0-0); TOTAL CELLS COUNTED 100
[2021-07-15 16:27] LABS: ANISOCYTOSIS 3+; MICROCYTOSIS 1+; PLATELET ESTIMATE NORMAL
[2021-07-15 16:29] LABS: ELLIPTOCYTES 1+; SMUDGE CELLS 1+; TEAR DROP CELLS FEW
--- NOTE | 2021-07-15 17:33 | NUR ---
PAGER ID: [phone] MESSAGE: Norberto Pepper#[phone]- Pt complaining of a right lateral knee "bubble like" site. Pt states it hurts when touched. please advise. DAVISI- NO luck with family taking pt. communicating with mynro about it. thank you Marj Vázquez [phone]
[2021-07-15 18:00] VITALS: BP 119/62
--- NOTE | 2021-07-15 18:17 | NUR ---
Problems reprioritized. Patient report given, questions answered & plan of care reviewed with Chu RUSHING traveler.
[2021-07-15] MEDS: mirtazapine 15mg tablet PO SCH (20:10)
[2021-07-15] MEDS: temazepam 15mg capsule PO PRN (20:11)
[2021-07-16] VITALS: BP 100/53
[2021-07-16] MEDS: HYDROcodone/acetaminophen 5mg/325mg tablet PO PRN (02:42)
--- NOTE | 2021-07-16 06:15 | NUR ---
Patient in room TAIWO 352. I have received report from СЕРГЕЙ Mcmahan and had the opportunity to ask questions and assume patient care.
--- NOTE | 2021-07-16 06:59 | NUR ---
Patient in room TAIWO 352. I have received report from Carmelo RUSHING traveler and had the opportunity to ask questions and assume patient care.
[2021-07-16 07:00] VITALS: BP 116/69
[2021-07-16] MEDS: busPIRone 5mg tablet PO SCH ×3 (08:11→22:00)
[2021-07-16] MEDS: apixaban 5mg tablet PO SCH ×2 (08:11→22:00)
[2021-07-16] MEDS: lisinopril 2.5mg tablet PO SCH (08:12)
[2021-07-16] MEDS: carVEDilol 3.125mg tablet PO SCH ×2 (08:12→22:01)
[2021-07-16] MEDS: citalopram 20mg tablet PO SCH (08:12)
[2021-07-16] MEDS: famotidine 20mg tablet PO SCH (08:13)
[2021-07-16] MEDS: atorvastatin 10mg tablet PO SCH (08:13)
[2021-07-16] MEDS: aspirin 81mg tab.chew PO SCH (08:13)
[2021-07-16] MEDS: ferrous sulfate 325mg tablet PO SCH (08:13)
[2021-07-16] MEDS: megestrol acetate 400mg/10ml UD oral suspension PO SCH ×2 (08:19→22:01)
[2021-07-16] MEDS: lactose-reduced food (Ensure Enlive) - 237ml bottle PO SCH (08:19)
[2021-07-16] MEDS: spironolactone 25 MG tablet PO SCH (08:30)
[2021-07-16] MEDS: HYDROmorphone inj. 0.5 MG/0.5 ML DISP.SYRIN IV PRN ×2 (09:00→22:18)
--- NOTE | 2021-07-16 11:02 | NUR ---
Reassessment: Pt has had significant improvement in PO intake since last RD assessment, now avg 61% x 11 meals, though mostly refuses ONS and partially meeting needs. RD and qa internship attempted to speak w/ pt, though pt was drowsy s/p I&D and unable to obtain food preferences. RD and qa internship spoke w/ nurse who states pt does not like the ensures and stated she will discontinue them, though pt does like ice cream. Recommend magic cup WL and ice cream WD to help meet nutrient needs. Pt has been started on megace 07/10 which has been helping w/ appetite per RN. LBM 07/15 per EMR. Will continue to monitor and make recommendations as appropriate. Recommendations: 1. Continue sodium restricted diet per MD, consider liberalizing to regular if PO does not improve 2. Magic cup WL, ice cream WD 3. Appetite stimulant per MD 4. IF PO does not improve consider supplemental TF 5. Routine bowel care 6. Weekly scaled weights Addendum: 07/16/21 at 1102 [address] Ekta [address]rano Intern RD Amended: Links added. Addendum: 07/16/21 at [address] I have reviewed assessment by qa internship
[2021-07-16 11:30] VITALS: BP 81/50
--- NOTE | 2021-07-16 11:55 | NUR ---
Problems reprioritized. Patient report given, questions answered & plan of care reviewed with SC ADN Student.
--- NOTE | 2021-07-16 12:00 | NUR ---
PATIENT REPORT RECEIVED FROM [place] STUDENT NURSEDANIEL
[2021-07-16] MEDS: sulfamethoxazole/trimethoprim DS (800/160mg) tablet PO SCH (16:56)
--- NOTE | 2021-07-16 18:42 | NUR ---
Problems reprioritized. Patient report given, questions answered & plan of care reviewed with Carmelo RUSHING traveler.
[2021-07-16 18:45] VITALS: BP 113/64
[2021-07-16] MEDS: mirtazapine 15mg tablet PO SCH (22:00)
[2021-07-16] MEDS: temazepam 15mg capsule PO PRN (22:18)
[2021-07-17] VITALS: BP 120/61
[2021-07-17] MEDS: HYDROcodone/acetaminophen 5mg/325mg tablet PO PRN ×2 (05:43→17:35)
--- NOTE | 2021-07-17 06:38 | NUR ---
Report given to oncoming nurse Bailey.
[2021-07-17 08:00] VITALS: BP 106/64
[2021-07-17] MEDS: lisinopril 2.5mg tablet PO SCH (08:00)
[2021-07-17] MEDS: apixaban 5mg tablet PO SCH ×3 (08:00→20:00)
[2021-07-17] MEDS: ferrous sulfate 325mg tablet PO SCH (08:16)
[2021-07-17] MEDS: busPIRone 5mg tablet PO SCH ×3 (08:16→21:36)
[2021-07-17] MEDS: famotidine 20mg tablet PO SCH (08:16)
[2021-07-17] MEDS: atorvastatin 10mg tablet PO SCH (08:16)
[2021-07-17] MEDS: aspirin 81mg tab.chew PO SCH (08:16)
[2021-07-17] MEDS: carVEDilol 3.125mg tablet PO SCH ×2 (08:17→20:00)
[2021-07-17] MEDS: citalopram 20mg tablet PO SCH (08:17)
[2021-07-17] MEDS: sulfamethoxazole/trimethoprim DS (800/160mg) tablet PO SCH ×2 (08:17→20:00)
[2021-07-17] MEDS: megestrol acetate 400mg/10ml UD oral suspension PO SCH ×2 (08:17→20:00)
[2021-07-17] MEDS: spironolactone 25 MG tablet PO SCH (08:23)
[2021-07-17 11:00] VITALS: BP 125/64
--- NOTE | 2021-07-17 11:35 | NUR ---
Problems reprioritized. Patient report given, questions answered & plan of care reviewed with angeli RUSHING Traveler. .
--- NOTE | 2021-07-17 18:03 | NUR ---
Problems reprioritized. Patient report given, questions answered & plan of care reviewed with Ghazal RUSHING.
[2021-07-17] MEDS: mirtazapine 15mg tablet PO SCH (21:37)
[2021-07-18] VITALS: BP 116/54
--- NOTE | 2021-07-18 06:24 | NUR ---
Patient in room TAIWO 352. I have received report from [place] and had the opportunity to ask questions and assume patient care.
--- NOTE | 2021-07-18 06:24 | NUR ---
Problems reprioritized. Patient report given, questions answered & plan of care reviewed with Bouchra.
--- NOTE | 2021-07-18 07:09 | NUR ---
Patient in room TAIWO 352. I have received report from СЕРГЕЙ NAIR and had the opportunity to ask questions and assume patient care.
[2021-07-18] MEDS: busPIRone 5mg tablet PO SCH ×3 (08:12→20:16)
[2021-07-18] MEDS: apixaban 5mg tablet PO SCH ×2 (08:12→20:17)
[2021-07-18] MEDS: aspirin 81mg tab.chew PO SCH (08:12)
[2021-07-18] MEDS: lisinopril 2.5mg tablet PO SCH (08:13)
[2021-07-18] MEDS: citalopram 20mg tablet PO SCH (08:13)
[2021-07-18] MEDS: famotidine 20mg tablet PO SCH (08:14)
[2021-07-18] MEDS: atorvastatin 10mg tablet PO SCH (08:14)
[2021-07-18] MEDS: ferrous sulfate 325mg tablet PO SCH (08:14)
[2021-07-18] MEDS: spironolactone 25 MG tablet PO SCH (08:14)
[2021-07-18] MEDS: carVEDilol 3.125mg tablet PO SCH ×2 (08:14→20:18)
[2021-07-18] MEDS: megestrol acetate 400mg/10ml UD oral suspension PO SCH ×2 (08:15→20:00)
[2021-07-18] MEDS: sulfamethoxazole/trimethoprim DS (800/160mg) tablet PO SCH ×2 (08:15→20:18)
--- NOTE | 2021-07-18 18:24 | NUR ---
Patient in room TAIWO 352. I have received report from Bouchra RUSHING and had the opportunity to ask questions and assume patient care.
--- NOTE | 2021-07-18 18:28 | NUR ---
Student documentation: I have reviewed and agree with all interventions, assessments documented by СЕРГЕЙ PRADO.
[2021-07-18 19:53] VITALS: BP 116/64
[2021-07-18] MEDS: HYDROcodone/acetaminophen 5mg/325mg tablet PO PRN (20:17)
[2021-07-18] MEDS: mirtazapine 15mg tablet PO SCH (20:17)
[2021-07-18] MEDS: HYDROmorphone inj. 0.5 MG/0.5 ML DISP.SYRIN IV PRN (23:14)
[2021-07-19] VITALS: BP 115/67
--- NOTE | 2021-07-19 06:40 | NUR ---
Problems reprioritized. Patient report given, questions answered & plan of care reviewed with Bouchra RUSHING.
[2021-07-19 07:00] VITALS: BP 102/49
--- NOTE | 2021-07-19 07:06 | NUR ---
Patient in room TAIWO 352. I have received report from СЕРГЕЙ BOYD and had the opportunity to ask questions and assume patient care.
[2021-07-19] MEDS: megestrol acetate 400mg/10ml UD oral suspension PO SCH ×2 (08:00→20:00)
[2021-07-19] MEDS: apixaban 5mg tablet PO SCH ×2 (09:45→20:16)
[2021-07-19] MEDS: carVEDilol 3.125mg tablet PO SCH ×2 (09:46→20:16)
[2021-07-19] MEDS: famotidine 20mg tablet PO SCH (09:46)
[2021-07-19] MEDS: atorvastatin 10mg tablet PO SCH (09:46)
[2021-07-19] MEDS: citalopram 20mg tablet PO SCH (09:46)
[2021-07-19] MEDS: lisinopril 2.5mg tablet PO SCH (09:47)
[2021-07-19] MEDS: ferrous sulfate 325mg tablet PO SCH (09:48)
[2021-07-19] MEDS: busPIRone 5mg tablet PO SCH ×3 (09:48→20:16)
[2021-07-19] MEDS: aspirin 81mg tab.chew PO SCH (09:48)
[2021-07-19] MEDS: spironolactone 25 MG tablet PO SCH (09:49)
[2021-07-19] MEDS: sulfamethoxazole/trimethoprim DS (800/160mg) tablet PO SCH ×2 (09:53→20:16)
[2021-07-19] MEDS: furosemide 40mg tablet PO SCH (09:56)
--- NOTE | 2021-07-19 10:14 | NUR ---
Reassessment: PO intake remains similar, avg 61% x 12 meals on Sodium restricted diet w/ additional magic cup WL and ice cream WD which meets approximately 95% of est protein and energy needs. Pt continues to receive Megace. LBM 07/18 receiving routine bowel care. No change to recommendations, will continue to monitor. Recommendations: 1. Continue sodium restricted diet per MD, consider liberalizing to regular if PO does not improve 2. Magic cup WL, ice cream WD; pt does not want ONS 3. Appetite stimulant per MD 4. IF PO does not improve consider supplemental TF 5. Routine bowel care 6. Weekly scaled weights Addendum: 07/19/21 at [address] Amended: Links added.
[2021-07-19 11:00] VITALS: BP 90/51
--- NOTE | 2021-07-19 18:32 | NUR ---
Problems reprioritized. Patient report given, questions answered & plan of care reviewed with СЕРГЕЙ ADAN.
[2021-07-19] MEDS: mirtazapine 15mg tablet PO SCH (20:16)
[2021-07-19 21:54] VITALS: BP 106/50
[2021-07-20] MEDS: HYDROcodone/acetaminophen 5mg/325mg tablet PO PRN ×3 (00:25→22:04)
--- NOTE | 2021-07-20 06:17 | NUR ---
Patient in room TAIWO 352. I have received report from СЕРГЕЙ ADAN and had the opportunity to ask questions and assume patient care.
[2021-07-20 07:00] VITALS: BP 124/63
[2021-07-20] MEDS: megestrol acetate 400mg/10ml UD oral suspension PO SCH ×2 (08:00→20:00)
[2021-07-20] MEDS: citalopram 20mg tablet PO SCH (08:33)
[2021-07-20] MEDS: busPIRone 5mg tablet PO SCH ×3 (08:34→22:02)
[2021-07-20] MEDS: apixaban 5mg tablet PO SCH ×2 (08:34→22:09)
[2021-07-20] MEDS: atorvastatin 10mg tablet PO SCH (08:34)
[2021-07-20] MEDS: aspirin 81mg tab.chew PO SCH (08:34)
[2021-07-20] MEDS: ferrous sulfate 325mg tablet PO SCH (08:34)
[2021-07-20] MEDS: sulfamethoxazole/trimethoprim DS (800/160mg) tablet PO SCH ×2 (08:34→22:03)
[2021-07-20] MEDS: lisinopril 2.5mg tablet PO SCH (08:34)
[2021-07-20] MEDS: famotidine 20mg tablet PO SCH (08:34)
[2021-07-20] MEDS: furosemide 40mg tablet PO SCH (08:34)
[2021-07-20] MEDS: carVEDilol 3.125mg tablet PO SCH ×2 (08:34→22:02)
[2021-07-20] MEDS: spironolactone 25 MG tablet PO SCH (08:35)
[2021-07-20 11:49] VITALS: BP 121/65
--- NOTE | 2021-07-20 18:34 | NUR ---
Problems reprioritized. Patient report given, questions answered & plan of care reviewed with СЕРГЕЙ YOST.
--- NOTE | 2021-07-20 18:35 | NUR ---
Patient in room TAIWO 352. I have received report from Bouchra RUSHING and had the opportunity to ask questions and assume patient care.
[2021-07-20 20:00] VITALS: BP 105/61
[2021-07-20] MEDS: mirtazapine 15mg tablet PO SCH (22:03)
[2021-07-21] VITALS (8 sets, daily range): BP systolic 100–118; BP diastolic 51–63
--- NOTE | 2021-07-21 06:30 | NUR ---
Problems reprioritized. Patient report given, questions answered & plan of care reviewed with Sahra RUSHING. Currently patient is resting in bed with a tabs alarm now attached to patient d/t fall this shift.
[2021-07-21] MEDS: apixaban 5mg tablet PO SCH (07:41)
[2021-07-21] MEDS: lisinopril 2.5mg tablet PO SCH (07:42)
[2021-07-21] MEDS: furosemide 40mg tablet PO SCH (07:42)
[2021-07-21] MEDS: ferrous sulfate 325mg tablet PO SCH (07:42)
[2021-07-21] MEDS: famotidine 20mg tablet PO SCH (07:42)
[2021-07-21] MEDS: atorvastatin 10mg tablet PO SCH (07:42)
[2021-07-21] MEDS: spironolactone 25 MG tablet PO SCH (07:43)
[2021-07-21] MEDS: sulfamethoxazole/trimethoprim DS (800/160mg) tablet PO SCH (07:43)
[2021-07-21] MEDS: busPIRone 5mg tablet PO SCH ×3 (07:43→20:27)
[2021-07-21] MEDS: citalopram 20mg tablet PO SCH (07:43)
[2021-07-21] MEDS: aspirin 81mg tab.chew PO SCH (07:43)
[2021-07-21] MEDS: megestrol acetate 400mg/10ml UD oral suspension PO SCH (07:47)
[2021-07-21] MEDS: carVEDilol 3.125mg tablet PO SCH ×2 (08:00→21:10)
[2021-07-21 09:43] LABS: BASOPHILS # (AUTO) 0.1 X10'3 (0-0.2); BASOPHILS % (AUTO) 1.4 % (0-1); EOSINOPHILS # (AUTO) 0.1 X10'3 (0-0.9); EOSINOPHILS % (AUTO) 1.9 % (0-6); HEMATOCRIT 25.7 % (35.0-45.0); HEMOGLOBIN 7.8 g/dl (12.0-16.0); LYMPHOCYTES # (AUTO) 2.7 X10'3 (1.1-4.8); LYMPHOCYTES % (AUTO) 35.3 % (21-51); MEAN CORPUSCULAR HEMOGLOBIN 22.2 PG (27.0-31.0); MEAN CORPUSCULAR HGB CONC 30.5 g/dL (33.0-36.5); MEAN CORPUSCULAR VOLUME 72.8 FL (78-98); MEAN PLATELET VOLUME 9.1 FL (7.4-10.4); MONOCYTES % (AUTO) 12.9 % (2-12); NEUTROPHILS # (AUTO) 3.7 X10'3 (1.8-7.7); NEUTROPHILS % (AUTO) 48.5 % (42-75); PLATELET COUNT 127 X10'3 (140-440); RED BLOOD COUNT 3.54 X10'6 (4.20-5.60); RED CELL DISTRIBUTION WIDTH 25.1 % (11.5-14.5); WHITE BLOOD COUNT 7.5 X10'3 (4.5-11.0)
[2021-07-21 10:29] LABS: ALBUMIN 2.5 G/DL (3.4-5.0); ANION GAP 13 (8-16); BLOOD UREA NITROGEN 27 MG/DL (7-18); BUN/CREATININE RATIO 17.8 (6.6-38.0); CALCIUM 7.7 MG/DL (8.5-10.1); CHLORIDE 106 MMOL/L (99-107); CREATININE 1.52 MG/DL (0.40-0.90); POTASSIUM 3.8 MMOL/L (3.5-5.1); SODIUM 138 MMOL/L (135-145); TOTAL CARBON DIOXIDE 19.2 MMOL/L (24-32); eGFR 34 ML/MIN
[2021-07-21 10:47] LABS: GLUCOSE 105 MG/DL (70-104)
--- NOTE | 2021-07-21 11:08 | NUR ---
Reassessment: Per [facility] note pt with stage III wound to right popliteal, abscess to right thigh, and two open areas to left thigh. Pt previously receiving ONS however was refusing so ONS were discontinued. Pt continues on 2 g Na restricted diet with significant improvement in PO intake since last RD assessment 07/19, documented with average 75% PO intake meeting estimated nutrient needs. Noted pt with routine Megace available though documented to be refusing since 07/18 per EMR. LBM 07/19, with PRN bowel care available. No nutrition intervention implemented at this time. Will continue to follow closely. Recommendations: 1. Continue sodium restricted diet per MD, consider liberalizing to regular if PO intake declines 2. Magic cup WL, ice cream WS; pt does not want ONS 3. Appetite stimulant per MD 4. IF PO intake declines consider supplemental EN 5. Routine bowel care 6. Weekly scaled weights Addendum: 07/21/21 at [address] Amended: Links added.
--- NOTE | 2021-07-21 13:00 | NUR ---
Pt. allowed primary Rn to complete wound care for one wound and then requested a pain pill. Pain pill administered.
[2021-07-21] MEDS: HYDROcodone/acetaminophen 5mg/325mg tablet PO PRN ×2 (13:42→20:29)
--- NOTE | 2021-07-21 15:53 | NUR ---
Pt. refusing wound care at this time r/t couple of visitors in room.
[2021-07-21] MEDS ORDERED: normal saline 1000ml 1,000 ML IV SCH (16:15)
[2021-07-21 16:44] LABS: BASOPHILS # (AUTO) 0.2 X10'3 (0-0.2); BASOPHILS % (AUTO) 1.7 % (0-1); EOSINOPHILS # (AUTO) 0.2 X10'3 (0-0.9); EOSINOPHILS % (AUTO) 1.9 % (0-6); HEMATOCRIT 30.2 % (35.0-45.0); HEMOGLOBIN 9.2 g/dl (12.0-16.0); LYMPHOCYTES # (AUTO) 3.4 X10'3 (1.1-4.8); LYMPHOCYTES % (AUTO) 34.8 % (21-51); MEAN CORPUSCULAR HEMOGLOBIN 21.9 PG (27.0-31.0); MEAN CORPUSCULAR HGB CONC 30.4 g/dL (33.0-36.5); MEAN PLATELET VOLUME 9.2 FL (7.4-10.4); MONOCYTES # (AUTO) 1.5 X10'3 (0-0.9); MONOCYTES % (AUTO) 15.5 % (2-12); NEUTROPHILS # (AUTO) 4.5 X10'3 (1.8-7.7); NEUTROPHILS % (AUTO) 46.1 % (42-75); PLATELET COUNT 180 X10'3 (140-440); RED CELL DISTRIBUTION WIDTH 25.1 % (11.5-14.5); WHITE BLOOD COUNT 9.8 X10'3 (4.5-11.0)
[2021-07-21 16:52] LABS: % IRON SATURATION 7 % (11-46); IRON 25 UG/DL (49-151); TOTAL IRON BINDING CAPACITY 377 UG/DL (259-388)
[2021-07-21] MEDS: DOXYCYCLINE 100MG CAPSULE PO SCH (17:10)
--- NOTE | 2021-07-21 18:13 | NUR ---
Gave report to Azucena RUSHING.
--- NOTE | 2021-07-21 18:40 | NUR ---
Patient in room TAIWO 352. I have received report from Sahra RUSHING and had the opportunity to ask questions and assume patient care.
--- NOTE | 2021-07-21 19:00 | NUR ---
promotional table spacer promotional table spacer Page Sent promotional table spacer PAGER ID: [phone] MESSAGE: 2nd page. Please confirm yes or no to the blood transfusion ordered earlier as H&H has already gone up. Deb Zeng [phone] (119 character message out of a maximum of 240) Close [X] Send Another Page Thank you for visiting [facility] promotional table spacer promotional table spacer
--- NOTE | 2021-07-21 19:02 | NUR ---
MD called back and "yes, still wants 1 unit transferred tonight".
--- NOTE | 2021-07-21 19:20 | NUR ---
primary RN, I reviewed patients physical assessment and agree with findings.
[2021-07-21 19:40] LABS: NUCLEATED RED BLOOD CELLS 4 /100WBC (0-0); TOTAL CELLS COUNTED 100
[2021-07-21 19:41] LABS: PLATELET ESTIMATE NORMAL
[2021-07-21 19:42] LABS: ANISOCYTOSIS 3+
[2021-07-21 19:43] LABS: ELLIPTOCYTES FEW; POLYCHROMASIA FEW; SCHISTOCYTES FEW
[2021-07-21 19:44] LABS: LARGE PLATELETS FEW
[2021-07-21 19:45] LABS: SMUDGE CELLS 2+
[2021-07-21] MEDS ORDERED: heparin, porcine 5000 units/ml vial SQ SCH (20:00)
[2021-07-21] MEDS: LORazepam 0.5 MG tablet PO PRN (22:35)
[2021-07-22] VITALS: BP 105/58
--- NOTE | 2021-07-22 00:06 | NUR ---
Student documentation: I have reviewed interventions, assessments performed and documented by Kimberli PHILLIPS [facility].
[2021-07-22] MEDS: HYDROcodone/acetaminophen 5mg/325mg tablet PO PRN ×2 (03:04→08:01)
--- NOTE | 2021-07-22 06:35 | NUR ---
Problems reprioritized. Patient report given, questions answered & plan of care reviewed with Sahra RUSHING.
[2021-07-22 06:45] LABS: BASOPHILS # (AUTO) 0.1 X10'3 (0-0.2); EOSINOPHILS # (AUTO) 0.2 X10'3 (0-0.9); HEMOGLOBIN 9.7 g/dl (12.0-16.0); LYMPHOCYTES # (AUTO) 3.6 X10'3 (1.1-4.8); MONOCYTES # (AUTO) 1.3 X10'3 (0-0.9)
[2021-07-22 06:47] LABS: BASOPHILS % (AUTO) 0.7 % (0-1); EOSINOPHILS % (AUTO) 2.7 % (0-6); HEMATOCRIT 31.4 % (35.0-45.0); MEAN CORPUSCULAR HEMOGLOBIN 23.2 PG (27.0-31.0); MEAN CORPUSCULAR HGB CONC 30.8 g/dL (33.0-36.5); MEAN CORPUSCULAR VOLUME 75.3 FL (78-98); MONOCYTES % (AUTO) 15.2 % (2-12); NEUTROPHILS # (AUTO) 3.5 X10'3 (1.8-7.7); NEUTROPHILS % (AUTO) 40.4 % (42-75); PLATELET COUNT 145 X10'3 (140-440); RED BLOOD COUNT 4.17 X10'6 (4.20-5.60); RED CELL DISTRIBUTION WIDTH 26.1 % (11.5-14.5); WHITE BLOOD COUNT 8.7 X10'3 (4.5-11.0)
[2021-07-22] MEDS: atorvastatin 10mg tablet PO SCH (07:58)
[2021-07-22] MEDS: DOXYCYCLINE 100MG CAPSULE PO SCH ×2 (07:58→17:39)
[2021-07-22] MEDS: aspirin 81mg tab.chew PO SCH (07:58)
[2021-07-22] MEDS: busPIRone 5mg tablet PO SCH ×3 (07:58→22:02)
[2021-07-22] MEDS: lisinopril 2.5mg tablet PO SCH (07:59)
[2021-07-22] MEDS: citalopram 20mg tablet PO SCH (07:59)
[2021-07-22] MEDS: ferrous sulfate 325mg tablet PO SCH (07:59)
[2021-07-22] MEDS: carVEDilol 3.125mg tablet PO SCH ×2 (07:59→19:52)
[2021-07-22] MEDS: famotidine 20mg tablet PO SCH (07:59)
[2021-07-22] MEDS: furosemide 20MG tablet PO SCH (08:00)
--- NOTE | 2021-07-22 09:38 | NUR ---
Gave report to Marisela RUSHING.
[2021-07-22 10:22] LABS: NUCLEATED RED BLOOD CELLS 3 /100WBC (0-0); TOTAL CELLS COUNTED 100
[2021-07-22 10:23] LABS: ANISOCYTOSIS 3+; PLATELET ESTIMATE NORMAL
[2021-07-22 10:24] LABS: ELLIPTOCYTES 1+; LARGE PLATELETS FEW; MICROCYTOSIS 1+; POLYCHROMASIA 1+; SCHISTOCYTES FEW; SMUDGE CELLS 1+; TOXIC VACUOLATION FEW
[2021-07-22 10:26] LABS: BURR CELLS FEW
[2021-07-22 11:00] VITALS: BP 106/49
--- NOTE | 2021-07-22 12:50 | NUR ---
Patient fell and hit her bottom, complain of no pain. Did not hit her head. vital signs T: 97.6, HR: 99, R: 20 B/P 114/69. Dr. Bautista made aware via message. PAGER ID: [phone] MESSAGE: Patient [place] in room 352A fell in hit her bottom. c/o of no pain. Did not hit her head. Vital signs stable. [facility] #[id number]
[2021-07-22 18:00] VITALS: BP 123/63
[2021-07-22 21:58] LABS: OCCULT BLOOD STOOL NEGATIVE (Neg)
[2021-07-22] MEDS ORDERED: carVEDilol 3.125mg tablet PO ONE (22:15)
[2021-07-22] MEDS: LORazepam 0.5 MG tablet PO PRN (23:11)
[2021-07-23] VITALS: BP 124/69
[2021-07-23] MEDS: HYDROcodone/acetaminophen 5mg/325mg tablet PO PRN (03:44)
[2021-07-23 06:24] LABS: BASOPHILS # (AUTO) 0.1 X10'3 (0-0.2); EOSINOPHILS # (AUTO) 0.1 X10'3 (0-0.9); HEMOGLOBIN 9.8 g/dl (12.0-16.0); MONOCYTES # (AUTO) 1.1 X10'3 (0-0.9); WHITE BLOOD COUNT 7.7 X10'3 (4.5-11.0)
[2021-07-23 06:26] LABS: BASOPHILS % (AUTO) 1.3 % (0-1); EOSINOPHILS % (AUTO) 1.4 % (0-6); HEMATOCRIT 31.8 % (35.0-45.0); LYMPHOCYTES # (AUTO) 2.6 X10'3 (1.1-4.8); LYMPHOCYTES % (AUTO) 33.9 % (21-51); MEAN CORPUSCULAR HEMOGLOBIN 23.3 PG (27.0-31.0); MEAN CORPUSCULAR HGB CONC 30.7 g/dL (33.0-36.5); MEAN CORPUSCULAR VOLUME 75.6 FL (78-98); MEAN PLATELET VOLUME 8.9 FL (7.4-10.4); MONOCYTES % (AUTO) 13.8 % (2-12); NEUTROPHILS # (AUTO) 3.8 X10'3 (1.8-7.7); NEUTROPHILS % (AUTO) 49.6 % (42-75); PLATELET COUNT 219 X10'3 (140-440); RED CELL DISTRIBUTION WIDTH 26.8 % (11.5-14.5)
--- NOTE | 2021-07-23 06:26 | NUR ---
0615 report to Genesis RUSHING. pt resting in bed. bed alarm on.
[2021-07-23 06:49] LABS: ALANINE AMINOTRANSFERASE 24 U/L (12-78); ALBUMIN 2.5 G/DL (3.4-5.0); ALBUMIN/GLOBULIN RATIO 0.8 (1.1-1.5); ALKALINE PHOSPHATASE 146 IU/L (46-116); ANION GAP 15 (8-16); ASPARTATE AMINO TRANSFERASE 23 U/L (10-37); BILIRUBIN,TOTAL 0.7 MG/DL (0.1-1.0); BLOOD UREA NITROGEN 24 MG/DL (7-18); BUN/CREATININE RATIO 20.7 (6.6-38.0); CHLORIDE 108 MMOL/L (99-107); CREATININE 1.16 MG/DL (0.40-0.90); POTASSIUM 4.7 MMOL/L (3.5-5.1); SODIUM 139 MMOL/L (135-145); TOTAL CARBON DIOXIDE 16.1 MMOL/L (24-32); TOTAL PROTEIN 5.7 G/DL (6.4-8.2); eGFR 47 ML/MIN
[2021-07-23 06:52] LABS: GLUCOSE 87 MG/DL (70-104)
[2021-07-23 08:00] VITALS: BP 110/54
[2021-07-23] MEDS: ferrous sulfate 325mg tablet PO SCH (08:00)
[2021-07-23] MEDS: lisinopril 2.5mg tablet PO SCH (08:00)
[2021-07-23] MEDS: citalopram 20mg tablet PO SCH (08:00)
[2021-07-23] MEDS: aspirin 81mg tab.chew PO SCH (08:00)
[2021-07-23] MEDS: busPIRone 5mg tablet PO SCH ×2 (08:00→12:23)
[2021-07-23] MEDS: furosemide 20MG tablet PO SCH (08:00)
[2021-07-23] MEDS: atorvastatin 10mg tablet PO SCH (08:00)
[2021-07-23] MEDS: famotidine 20mg tablet PO SCH (08:00)
[2021-07-23] MEDS: carVEDilol 3.125mg tablet PO SCH (08:00)
[2021-07-23] MEDS: DOXYCYCLINE 100MG CAPSULE PO SCH (08:30)
--- NOTE | 2021-07-23 09:13 | NUR ---
Went to introduce myself to patient at the start of shift, IV was pulled out and sitting on the bedside table. Patient says she does not want to have IV access and does not want to be poked again for a new IV. Patient is refusing medications and physical assessment despite education regrading wound care. Per resource RN, patient had a rough night and is now refusing interventions.
[2021-07-23 09:29] LABS: ANISOCYTOSIS 3+; MICROCYTOSIS 1+; NUCLEATED RED BLOOD CELLS 9 /100WBC (0-0); PLATELET ESTIMATE NORMAL; POLYCHROMASIA 1+; SMUDGE CELLS 1+; TOTAL CELLS COUNTED 100
[2021-07-23 09:30] LABS: BURR CELLS FEW; ELLIPTOCYTES 1+; SCHISTOCYTES FEW
[2021-07-23 09:31] LABS: LARGE PLATELETS FEW
--- NOTE | 2021-07-23 12:19 | NUR ---
PAGER ID: [phone] MESSAGE: 352. Can I switch patient to regular diet? Genesis RUSHING [id number]
--- NOTE | 2021-07-23 16:14 | NUR ---
PAGER ID: [phone] MESSAGE: [phone]. Patient is agitated and yelling at staff. Can we get IM medication? Genesis RUSHING [id number]
--- NOTE | 2021-07-23 16:14 | NUR ---
Patient is refusing celexa. She requested ativan and she is now refusing ativan/everything and is saying she is leaving AMA. Patient says sister will come pick her up.
--- NOTE | 2021-07-23 16:46 | NUR ---
PAGER ID: [phone] MESSAGE: [phone]. Patient has signed AMA sheet. Will be in patient chart. Genesis RUSHING [id number]
--- NOTE | 2021-07-23 16:53 | NUR ---
Patient has signed paper to leave AMA despite education of consequences. Paper is in her chart. She has no IV as she removed it herself this morning. Patient is refusing any medication/intervention and yelling at staff/family over the phone I spoke to her mother over the phone and she is aware patient is leaving AMA. According to her mother, that patient's sister is on her way to pick her up. Dr. Bautista is aware about the situation. Dr. Angeles is also aware patient is leaving AMA and has instructed me to remove PICOT drain.
== END 2021-07-23 17:10 | disposition left against medical advice (07) | DRG 602 ==
LOC: ER 16:24 → ED HOLD 06-30 00:21 → PCU 3S 06-30 02:45 → SUR 3N 07-05 22:57
PROVIDERS: ADMIT Family Medicine; ATTEND Family Medicine
PROC: BQ2S1ZZ Computerized Tomography (CT Scan) of Left Lower Extremity using Low Osmolar Contrast (ICD-10-PCS; 2021-07-04)
PROC: BQ2R1ZZ Computerized Tomography (CT Scan) of Right Lower Extremity using Low Osmolar Contrast (ICD-10-PCS; 2021-07-04)
PROC: 0Y9C0ZZ Drainage of Right Upper Leg, Open Approach (ICD-10-PCS; 2021-07-05)
PROC: 0Y9D0ZZ Drainage of Left Upper Leg, Open Approach (ICD-10-PCS; principal; 2021-07-05 08:00)
PROC: 0Y9C0ZZ Drainage of Right Upper Leg, Open Approach (ICD-10-PCS; 2021-07-16)
PROC: 30233N1 Transfusion of Nonautologous Red Blood Cells into Peripheral Vein, Percutaneous Approach (ICD-10-PCS; 2021-07-21)
DX: L03.115 Cellulitis of right lower limb (principal); I50.23 Acute on chronic systolic (congestive) heart failure; J96.01 Acute respiratory failure with hypoxia; E05.91 Thyrotoxicosis, unspecified with thyrotoxic crisis or storm; E87.2 Acidosis; E46 Unspecified protein-calorie malnutrition; N17.9 Acute kidney failure, unspecified; I13.0 Hypertensive heart and chronic kidney disease with heart failure and stage 1 through stage 4 chronic kidney disease, or unspecified chronic kidney disease; I42.7 Cardiomyopathy due to drug and external agent; Z68.1 Body mass index [BMI] 19.9 or less, adult; L02.415 Cutaneous abscess of right lower limb; Z20.822 Contact with and (suspected) exposure to COVID-19; D64.9 Anemia, unspecified; I35.1 Nonrheumatic aortic (valve) insufficiency; N18.30 Chronic kidney disease, stage 3 unspecified; F41.9 Anxiety disorder, unspecified; G89.29 Other chronic pain; M19.90 Unspecified osteoarthritis, unspecified site; M54.9 Dorsalgia, unspecified; R26.2 Difficulty in walking, not elsewhere classified; B95.62 Methicillin resistant Staphylococcus aureus infection as the cause of diseases classified elsewhere; D72.819 Decreased white blood cell count, unspecified; I27.20 Pulmonary hypertension, unspecified; E78.5 Hyperlipidemia, unspecified; F17.210 Nicotine dependence, cigarettes, uncomplicated; F32.A Depression, unspecified; J44.9 Chronic obstructive pulmonary disease, unspecified; L02.416 Cutaneous abscess of left lower limb; L03.116 Cellulitis of left lower limb; Z53.29 Procedure and treatment not carried out because of patient's decision for other reasons; Z86.711 Personal history of pulmonary embolism; Z90.710 Acquired absence of both cervix and uterus; Z91.041 Radiographic dye allergy status; Z88.5 Allergy status to narcotic agent; Z91.013 Allergy to seafood; Z80.0 Family history of malignant neoplasm of digestive organs; Z79.899 Other long term (current) drug therapy; Z91.19 Patient's noncompliance with other medical treatment and regimen
CPT/HCPCS: 36415; 36430; 36600; 70450; 71045; 73701; 76882; 80048; 80053; 80202; 81003; 82272; 82803; 83540; 83550; 83605; 83735; 83880; 84100; 84145; 84484; 85007; 85008; 85018; 85025; 85379; 85610; 85730; 86885; 86900; 86901; 86920; 87040; 87070; 87075; 87077; 87081; 87186; 87635; 93005; 93970; 96374; 97110; 97116; 97161; 97530; 99285; A4618; A6253; A6266; A6446; A6449; A7000; G0378; J0696; J1100; J1170; J1644; J1650; J1940; J2250; J2405; J3010; J3370; J3490; J7030; J7120; J7512; P9016; Q0163

== ENCOUNTER 2021-07-26 21:52 | Inpatient (IN) | payer MEDICARE, MEDICAID ==
[~2021-07-26] VITALS: Ht 172.7 cm; Wt 45.5 kg
[~2021-07-26 21:52] MED LIST changes: -BUSP10TA3 PO; +BUSP15TA3 PO; +CITA20TA28 PO; -FURO20TA4 PO; -HYDR-3927 PO; +LACT-237 PO; -LISI5TAB22 PO; -MAGN400T56 PO; +MEGE400O6 PO; +MULT-1074 PO; -ZAR2.5T PO
[2021-07-27] MEDS ORDERED: vancomycin/NS 1 GM ADD-VANTAGE 250 ML IV ONE (00:50)
[2021-07-27] MEDS ORDERED: CefTRIAXone 2gm/D5W 50ml BAG 50 ML IV ONE (00:50)
[2021-07-27 02:22] LABS: BASOPHILS # (AUTO) 0.1 X10'3 (0-0.2); BASOPHILS % (AUTO) 0.9 % (0-1); EOSINOPHILS # (AUTO) 0.1 X10'3 (0-0.9); EOSINOPHILS % (AUTO) 1.2 % (0-6); LYMPHOCYTES # (AUTO) 2.5 X10'3 (1.1-4.8); LYMPHOCYTES % (AUTO) 30.4 % (21-51); MONOCYTES # (AUTO) 1.1 X10'3 (0-0.9); MONOCYTES % (AUTO) 13.4 % (2-12); NEUTROPHILS # (AUTO) 4.5 X10'3 (1.8-7.7); NEUTROPHILS % (AUTO) 54.1 % (42-75); PLATELET COUNT 423 X10'3 (140-440); WHITE BLOOD COUNT 8.3 X10'3 (4.5-11.0)
[2021-07-27] MEDS ORDERED: CARV3.123 PO (02:28)
[2021-07-27] MEDS ORDERED: FURO20TA4 PO (02:28)
[2021-07-27] MEDS ORDERED: SPIR25TA5 PO (02:29)
[2021-07-27 02:43] LABS: ALANINE AMINOTRANSFERASE 32 U/L (12-78); ALBUMIN 3.1 G/DL (3.4-5.0); ALBUMIN/GLOBULIN RATIO 0.8 (1.1-1.5); ALKALINE PHOSPHATASE 197 IU/L (46-116); ANION GAP 14 (8-16); ASPARTATE AMINO TRANSFERASE 26 U/L (10-37); BILIRUBIN,TOTAL 0.8 MG/DL (0.1-1.0); BLOOD UREA NITROGEN 21 MG/DL (7-18); BUN/CREATININE RATIO 13.5 (6.6-38.0); CALCIUM 8.1 MG/DL (8.5-10.1); CHLORIDE 106 MMOL/L (99-107); CREATININE 1.56 MG/DL (0.40-0.90); POTASSIUM 4.1 MMOL/L (3.5-5.1); SODIUM 137 MMOL/L (135-145); TOTAL CARBON DIOXIDE 17.5 MMOL/L (24-32); eGFR 33 ML/MIN
[2021-07-27] MEDS ORDERED: HYDROmorphone 1 mg/ml syringe IV ONE (02:45)
[2021-07-27] MEDS ORDERED: ondansetron/PF 4mg/2ml inj IV ONE (02:45)
[2021-07-27 02:51] LABS: HEMOGLOBIN 11.1 g/dl (12.0-16.0); RED BLOOD COUNT 4.55 X10'6 (4.20-5.60)
[2021-07-27 02:52] LABS: GLUCOSE 85 MG/DL (70-104)
[2021-07-27 02:52] LABS: MEAN CORPUSCULAR HEMOGLOBIN 24.3 PG (27.0-31.0); MEAN CORPUSCULAR HGB CONC 32.6 g/dL (33.0-36.5); MEAN CORPUSCULAR VOLUME 74.8 FL (78-98); RED CELL DISTRIBUTION WIDTH 27.4 % (11.5-14.5)
[2021-07-27 02:58] LABS: ETHANOL < 0.010 GM/DL (0.0-0.010)
[2021-07-27] MEDS ORDERED: HYDROmorphone/PF 0.2 MG/ML SYRINGE IV PRN (03:15)
[2021-07-27] MEDS ORDERED: ondansetron/PF 4mg/2ml inj IV PRN (03:15)
[2021-07-27] MEDS ORDERED: magnesium hydroxide 30ml (MOM) UD suspension PO PRN (03:15)
[2021-07-27] MEDS ORDERED: acetaminophen 325mg tablet PO PRN (03:15)
[2021-07-27] MEDS ORDERED: magnesium 4gm in 100ml NS 100 ML IV PRN (03:15)
[2021-07-27] MEDS ORDERED: potassium Cl 20 mEq SR tablet PO PRN ×2 (03:15)
[2021-07-27] MEDS ORDERED: magnesium 2GM in 50ml NS 50 ML IV PRN (03:15)
[2021-07-27] MEDS ORDERED: magnesium Cl slow-release 64mg tablet PO PRN (03:15)
[2021-07-27] MEDS ORDERED: mag hydrox/Alum hydrox/simeth 30ml oral suspension PO PRN (03:15)
[2021-07-27] MEDS ORDERED: potassium CL 10mEq/100ml bag 100 ML IV PRN (03:15)
--- NOTE | 2021-07-27 03:59 | NUR ---
Per MD order: Wound 1 on proximal right thigh; gauze and packing removed, purulent drainage present on dressing. Tunneling under wound edges present. Wound flushed with 20 ml NS. Wound bed and borders clean w/ no erythema. Wound repacked with 1/2 inch iodoform gauze, and covered with 4x4 sterile gauze and silk tape. Process repeated for Wound 2 on distal right thigh. Wound two also has clean bed and borders with no erythema present. Wond has tunneling under edges. Wound 3 and 4 are on the dorsal left thigh and are connected by a tunnel. Wounds had clean beds and borders with no erythema. Both Wounds were flushed with 20 ml NS then covered with 4x4 sterile gauze and tape.
[2021-07-27] MEDS ORDERED: normal saline 1000ML IV soln IV ONE (04:00)
[2021-07-27 05:08] LABS: PLATELET ESTIMATE NORMAL
[2021-07-27 05:09] LABS: ANISOCYTOSIS 3+; MICROCYTOSIS 1+
[2021-07-27 05:10] LABS: BURR CELLS FEW; ELLIPTOCYTES 1+; LARGE PLATELETS FEW; POLYCHROMASIA FEW; SCHISTOCYTES FEW
[2021-07-27 05:43] LABS: URINE AMPHETAMINE SCREEN NEGATIVE (Neg); URINE BARBITUATE SCREEN NEGATIVE (Neg); URINE BENZODIAZEPINES SCREEN NEGATIVE (Neg); URINE CANNABINOID SCREEN POSITIVE (Neg); URINE COCAINE SCREEN NEGATIVE (Neg); URINE METHADONE SCREEN NEGATIVE (Neg); URINE OPIATE SCREEN POSITIVE (Neg); URINE PHENCYCLIDINE SCREEN NEGATIVE (Neg)
[2021-07-27] MEDS ORDERED: Permethrin Cream 60gm TP ONE (06:40)
[2021-07-27] MEDS ORDERED: Permethrin 1% 59ml topical rinse TP ONE (06:40)
[2021-07-27] MEDS: K and/or MAG REPLACEMENT MC SCH ×2 (08:00→20:00)
[2021-07-27] MEDS: HYDROmorphone inj. 0.5 MG/0.5 ML DISP.SYRIN IV PRN (09:10)
[2021-07-27] MEDS: citalopram 20mg tablet PO SCH (12:02)
[2021-07-27] MEDS: apixaban 5mg tablet PO SCH ×2 (12:02→20:42)
[2021-07-27] MEDS: aspirin 81mg tab.chew PO SCH (12:02)
[2021-07-27] MEDS: spironolactone 25 MG tablet PO SCH (12:04)
[2021-07-27] MEDS: atorvastatin 10mg tablet PO SCH (12:04)
[2021-07-27] MEDS: furosemide 40mg tablet PO SCH (12:04)
[2021-07-27] MEDS: ferrous sulfate 325mg tablet PO SCH (12:05)
[2021-07-27] MEDS: carvedilol 6.25mg tablet PO SCH ×2 (12:05→20:42)
[2021-07-27] MEDS: docusate sod 100mg capsule PO SCH ×2 (12:05→20:42)
--- NOTE | 2021-07-27 14:00 | NUR ---
Attempted to give report to the Medical Floor. Nurse is not ready/avalible.
--- NOTE | 2021-07-27 14:10 | NUR ---
Report given to Ramón on the Medical Floor.
[2021-07-27 15:30] VITALS: BP 101/61
[2021-07-27 18:00] VITALS: BP 101/59
[2021-07-27 23:00] VITALS: BP 92/57
[2021-07-28] VITALS (7 sets, daily range): BP systolic 96–114; BP diastolic 55–66
[2021-07-28] MEDS: vancomycin/NS 500MG ADD-VANT 100 ML IV SCH (00:47)
[2021-07-28] MEDS: HYDROmorphone inj. 0.5 MG/0.5 ML DISP.SYRIN IV PRN ×3 (00:47→19:42)
[2021-07-28 06:55] LABS: ALANINE AMINOTRANSFERASE 28 U/L (12-78); ALBUMIN 2.7 G/DL (3.4-5.0); ALBUMIN/GLOBULIN RATIO 0.8 (1.1-1.5); ALKALINE PHOSPHATASE 179 IU/L (46-116); ANION GAP 15 (8-16); ASPARTATE AMINO TRANSFERASE 32 U/L (10-37); BILIRUBIN,TOTAL 0.9 MG/DL (0.1-1.0); BLOOD UREA NITROGEN 29 MG/DL (7-18); CHLORIDE 104 MMOL/L (99-107); CREATININE 1.32 MG/DL (0.40-0.90); SODIUM 135 MMOL/L (135-145); TOTAL CARBON DIOXIDE 15.7 MMOL/L (24-32); TOTAL PROTEIN 6.1 G/DL (6.4-8.2); eGFR 40 ML/MIN
[2021-07-28 06:58] LABS: GLUCOSE 69 MG/DL (70-104); POTASSIUM 4.8 MMOL/L (3.5-5.1)
[2021-07-28] MEDS: K and/or MAG REPLACEMENT MC SCH ×2 (08:00→20:00)
[2021-07-28] MEDS: carvedilol 6.25mg tablet PO SCH (08:37)
[2021-07-28] MEDS: ferrous sulfate 325mg tablet PO SCH (08:37)
[2021-07-28] MEDS: spironolactone 25 MG tablet PO SCH (08:37)
[2021-07-28] MEDS: apixaban 5mg tablet PO SCH ×2 (08:37→19:42)
[2021-07-28] MEDS: citalopram 20mg tablet PO SCH (08:38)
[2021-07-28] MEDS: furosemide 40mg tablet PO SCH (08:38)
[2021-07-28] MEDS: aspirin 81mg tab.chew PO SCH (08:38)
[2021-07-28] MEDS: docusate sod 100mg capsule PO SCH ×2 (08:38→20:00)
[2021-07-28] MEDS: atorvastatin 10mg tablet PO SCH (08:38)
[2021-07-28 09:47] LABS: BASOPHILS # (AUTO) 0.1 X10'3 (0-0.2); BASOPHILS % (AUTO) 1.1 % (0-1); EOSINOPHILS # (AUTO) 0.2 X10'3 (0-0.9); EOSINOPHILS % (AUTO) 2.1 % (0-6); HEMATOCRIT 30.9 % (35.0-45.0); HEMOGLOBIN 9.3 g/dl (12.0-16.0); LYMPHOCYTES # (AUTO) 2.7 X10'3 (1.1-4.8); LYMPHOCYTES % (AUTO) 35.7 % (21-51); MEAN CORPUSCULAR HEMOGLOBIN 23.6 PG (27.0-31.0); MEAN CORPUSCULAR HGB CONC 30.1 g/dL (33.0-36.5); MEAN CORPUSCULAR VOLUME 78.4 FL (78-98); MONOCYTES % (AUTO) 13.7 % (2-12); NEUTROPHILS # (AUTO) 3.5 X10'3 (1.8-7.7); NEUTROPHILS % (AUTO) 47.4 % (42-75); PLATELET COUNT 375 X10'3 (140-440); RED BLOOD COUNT 3.95 X10'6 (4.20-5.60); RED CELL DISTRIBUTION WIDTH 27.3 % (11.5-14.5); WHITE BLOOD COUNT 7.4 X10'3 (4.5-11.0)
[2021-07-28] MEDS ORDERED: FLU VACC QS2021-22(6MOS UP)/PF 60 MCG/0.5 ML SYRINGE IM ONE (10:00)
--- NOTE | 2021-07-28 11:39 | NUR ---
Malnutrition consult: Pt admitted w/ multiple BLE wounds, CHF and CKD III per EMR. Pt was previously triggered for malnutrition last admit, for which she left AMA 07/23. On previous admit, pt was consuming avg 50-75% of meals a few days prior to discharge, which was mostly meeting her nutrient needs. Though pt was also receiving megace at that time, prior to megace; pt's PO intake was 0-25% of meals. Currently pending PO this admit. Pt does appear quite thin though no significant changes since last admit. This is likely her baseline appearance and wt given hx in EMR over the last 7 years. Pt's nutritional status likely declined or did not improve after recent discharge. Pt appeared uncomfortable in bed though did not wake for interview. At this time pt currently meets minimum criteria for malnutrition. MD notified. Per MD note, pt's wounds look better compared to last time, currently pending WOC assessment. Most recent WOC note on 07/22 showed pt w/ Stage III to R popliteal. On previous admit pt did not like Ensure or Niko, though liked ice cream and magic cups. Recommend liberalizing to Regular diet given previous poor PO and consider resuming appetite stimulant if PO does not improve. Will continue to monitor. Recs: 1. Continue Heart healthy diet as tolerated, liberalize to Regular if PO not adequate 3. Consider appetite stimulant pending PO trends per MD discretion 2. Magic cup BIDLD; pt does not like ONS 3. Bowel care per rx 4. Weekly wts Addendum: 07/28/21 at [address] Amended: Links added.
[2021-07-28 11:45] LABS: ANISOCYTOSIS 3+; MICROCYTOSIS 1+; PLATELET ESTIMATE NORMAL
[2021-07-28 11:46] LABS: BURR CELLS FEW; ELLIPTOCYTES FEW; SCHISTOCYTES FEW
[2021-07-28 11:47] LABS: HYPOCHROMASIA 1+
--- NOTE | 2021-07-28 14:27 | NUR ---
WOUND INFECTION EDUCATION PROVIDED BY WOUND CARE 1. Patient instructed to call their primary doctor, or go the ED immediately if any of the following symptoms occur: * Increased pain in wound * Increase in drainage from the wound * Redness in the skin surrounding the wound * Warmth in the skin surrounding the wound * Bleeding from the wound * Temperature of 101 or greater 2. If any of these occur while in the hospital tell a nurse immediately. PRESSURE ULCER EDUCATION: DEFINITION: A pressure ulcer is an area of skin that breaks down when you stay in one position too long. The constant pressure against the skin reduces the blood flow to that area and the affected tissue dies. CAUSES: "Being bedridden or in a wheelchair "Fragile skin "Having a chronic condition, such as diabetes or vascular disease "Inability to move certain parts of your body without assistance "Older age "Incontinence of urine or stool SYMPTOMS: "A reddened area that DOES NOT turn white when pressed on - this can be the beginning of a pressure ulcer "A blister, deep sore or a crater - these can be advanced pressure ulcers FIRST AID: "Relieve the pressure on this area "Keep the area clean and dry "Call your primary doctor if you see any of the above symptoms "DO NOT massage the area "DO NOT use a donut shaped or ring shaped pillow- these actually interfere with the blood flow and cause complications PREVENTION: "Check for pressure ulcers everyday "Change position at least every two hours to relieve pressure "Use items that help relieve pressure- pillows, sheepskin, foam padding, and powders. "Keep skin clean and dry "Eat healthy well balanced meals "Exercise daily IF YOU SEE ANY OF THESE SYMPTOMS WHILE IN THE HOSPITAL - TELL YOUR NURSE IMMEDIATELY. IF YOU SEE ANY OF THESE SYMPTOMS WHILE AT HOME OR HAVE ANY QUESTIONS OR CONCERNS ABOUT PRESSURE ULCERS - CALL YOUR PRIMARY DOCTOR IMMEDIATELY. Addendum: 07/28/21 at 1428 by Tiffany Escoto RN Amended: Links added.
[2021-07-29] MEDS: carvedilol 6.25mg tablet PO SCH ×3 (00:04→20:25)
[2021-07-29] MEDS: HYDROmorphone inj. 0.5 MG/0.5 ML DISP.SYRIN IV PRN ×5 (00:27→22:15)
[2021-07-29] MEDS ORDERED: VANCOMYCIN 1GM/200ML IVPB 200 ML IV SCH (01:00)
[2021-07-29] MEDS: vancomycin/NS 500MG ADD-VANT 100 ML IV SCH (01:05)
[2021-07-29 02:00] VITALS: BP 113/55
[2021-07-29 06:00] VITALS: BP 97/57
[2021-07-29 06:21] LABS: BASOPHILS # (AUTO) 0.1 X10'3 (0-0.2); BASOPHILS % (AUTO) 1.7 % (0-1); EOSINOPHILS # (AUTO) 0.1 X10'3 (0-0.9); EOSINOPHILS % (AUTO) 1.9 % (0-6); HEMATOCRIT 30.8 % (35.0-45.0); HEMOGLOBIN 9.4 g/dl (12.0-16.0); LYMPHOCYTES # (AUTO) 2.3 X10'3 (1.1-4.8); LYMPHOCYTES % (AUTO) 30.9 % (21-51); MEAN CORPUSCULAR HEMOGLOBIN 23.8 PG (27.0-31.0); MEAN CORPUSCULAR HGB CONC 30.6 g/dL (33.0-36.5); MEAN CORPUSCULAR VOLUME 77.8 FL (78-98); NEUTROPHILS # (AUTO) 3.8 X10'3 (1.8-7.7); NEUTROPHILS % (AUTO) 51.5 % (42-75); PLATELET COUNT 381 X10'3 (140-440); RED BLOOD COUNT 3.96 X10'6 (4.20-5.60); RED CELL DISTRIBUTION WIDTH 27.6 % (11.5-14.5); WHITE BLOOD COUNT 7.5 X10'3 (4.5-11.0)
[2021-07-29 06:54] LABS: ANISOCYTOSIS 3+; MICROCYTOSIS 1+; PLATELET ESTIMATE NORMAL
[2021-07-29 06:55] LABS: BURR CELLS FEW; ELLIPTOCYTES FEW; POLYCHROMASIA 1+; SCHISTOCYTES 1+
[2021-07-29 06:56] LABS: ACANTHOCYTES FEW; TEAR DROP CELLS FEW
[2021-07-29 06:58] LABS: ALANINE AMINOTRANSFERASE 26 U/L (12-78); ALBUMIN 2.7 G/DL (3.4-5.0); ALBUMIN/GLOBULIN RATIO 0.8 (1.1-1.5); ALKALINE PHOSPHATASE 190 IU/L (46-116); ANION GAP 15 (8-16); ASPARTATE AMINO TRANSFERASE 22 U/L (10-37); BILIRUBIN,TOTAL 0.7 MG/DL (0.1-1.0); BLOOD UREA NITROGEN 37 MG/DL (7-18); BUN/CREATININE RATIO 22.3 (6.6-38.0); CALCIUM 8.1 MG/DL (8.5-10.1); CHLORIDE 105 MMOL/L (99-107); CREATININE 1.66 MG/DL (0.40-0.90); GLUCOSE 97 MG/DL (70-104); POTASSIUM 4.4 MMOL/L (3.5-5.1); SODIUM 136 MMOL/L (135-145); TOTAL CARBON DIOXIDE 16.5 MMOL/L (24-32); eGFR 31 ML/MIN
[2021-07-29] MEDS: K and/or MAG REPLACEMENT MC SCH ×2 (08:00→20:00)
[2021-07-29] MEDS: apixaban 5mg tablet PO SCH ×2 (08:35→20:25)
[2021-07-29] MEDS: aspirin 81mg tab.chew PO SCH (08:35)
[2021-07-29] MEDS: citalopram 20mg tablet PO SCH (08:35)
[2021-07-29] MEDS: furosemide 40mg tablet PO SCH (08:35)
[2021-07-29] MEDS: ferrous sulfate 325mg tablet PO SCH (08:35)
[2021-07-29] MEDS: atorvastatin 10mg tablet PO SCH (08:35)
[2021-07-29] MEDS: docusate sod 100mg capsule PO SCH ×2 (08:36→20:00)
[2021-07-29] MEDS: spironolactone 25 MG tablet PO SCH (08:36)
--- NOTE | 2021-07-29 09:30 | NUR ---
F/u: Pt seen by wound care, per report pt with a resolving stage II PU to right knee with abscesses that are s/p I&D to right hip and bilat thigh, and a scabbed abrasion to right ankle. The remainder of skin appears free of breakdown per [facility] note. Pt would benefit from ONS to assist with wound healing however pt does not want ONS and is currently receiving a Magic Cup BIDLD for additional kcal/protein. Pt currently eating well documented with mostly 75% PO intake on heart healthy diet. Will continue to follow and make recommendations as appropriate. Addendum: 07/29/21 at [address] Amended: Links added.
[2021-07-29] MEDS: fluconazole 100mg tablet PO SCH (11:29)
[2021-07-29 12:00] VITALS: BP 102/60
[2021-07-29 16:00] VITALS: BP 97/53
[2021-07-29 18:00] VITALS: BP 97/53
--- NOTE | 2021-07-29 18:37 | NUR ---
Patient in room MED 311. I have received report from Teresa RUSHING and had the opportunity to ask questions and assume patient care.
[2021-07-29 22:00] VITALS: BP 97/58
[2021-07-30] MEDS ORDERED: VANCOMYCIN LEVEL IV ONE (00:30)
[2021-07-30 02:00] VITALS: BP 91/50
[2021-07-30] MEDS: HYDROmorphone inj. 0.5 MG/0.5 ML DISP.SYRIN IV PRN ×3 (04:04→19:59)
[2021-07-30 06:05] LABS: BASOPHILS # (AUTO) 0.1 X10'3 (0-0.2); BASOPHILS % (AUTO) 1.3 % (0-1); EOSINOPHILS # (AUTO) 0.1 X10'3 (0-0.9); EOSINOPHILS % (AUTO) 1.2 % (0-6); HEMATOCRIT 28.2 % (35.0-45.0); HEMOGLOBIN 8.6 g/dl (12.0-16.0); LYMPHOCYTES # (AUTO) 1.7 X10'3 (1.1-4.8); LYMPHOCYTES % (AUTO) 25.8 % (21-51); MEAN CORPUSCULAR HEMOGLOBIN 23.9 PG (27.0-31.0); MEAN CORPUSCULAR HGB CONC 30.5 g/dL (33.0-36.5); MEAN CORPUSCULAR VOLUME 78.2 FL (78-98); MEAN PLATELET VOLUME 7.8 FL (7.4-10.4); MONOCYTES # (AUTO) 0.9 X10'3 (0-0.9); MONOCYTES % (AUTO) 13.5 % (2-12); NEUTROPHILS # (AUTO) 3.9 X10'3 (1.8-7.7); NEUTROPHILS % (AUTO) 58.2 % (42-75); PLATELET COUNT 356 X10'3 (140-440); RED CELL DISTRIBUTION WIDTH 27.4 % (11.5-14.5); WHITE BLOOD COUNT 6.7 X10'3 (4.5-11.0)
[2021-07-30 06:21] LABS: ALANINE AMINOTRANSFERASE 20 U/L (12-78); ALBUMIN 2.5 G/DL (3.4-5.0); ALBUMIN/GLOBULIN RATIO 0.8 (1.1-1.5); ALKALINE PHOSPHATASE 186 IU/L (46-116); ANION GAP 12 (8-16); ASPARTATE AMINO TRANSFERASE 18 U/L (10-37); BILIRUBIN,TOTAL 0.6 MG/DL (0.1-1.0); BLOOD UREA NITROGEN 41 MG/DL (7-18); BUN/CREATININE RATIO 31.1 (6.6-38.0); CALCIUM 8.2 MG/DL (8.5-10.1); CHLORIDE 105 MMOL/L (99-107); CREATININE 1.32 MG/DL (0.40-0.90); POTASSIUM 3.8 MMOL/L (3.5-5.1); SODIUM 134 MMOL/L (135-145); TOTAL CARBON DIOXIDE 17.2 MMOL/L (24-32); TOTAL PROTEIN 5.8 G/DL (6.4-8.2); eGFR 40 ML/MIN
[2021-07-30 06:22] LABS: GLUCOSE 107 MG/DL (70-104)
--- NOTE | 2021-07-30 06:36 | NUR ---
Problems reprioritized. Patient report given, questions answered & plan of care reviewed with Norberto RUSHING.
[2021-07-30 07:22] VITALS: BP 101/50
[2021-07-30] MEDS: ferrous sulfate 325mg tablet PO SCH (08:00)
[2021-07-30] MEDS: docusate sod 100mg capsule PO SCH ×2 (08:00→19:59)
[2021-07-30] MEDS: K and/or MAG REPLACEMENT MC SCH ×2 (08:00→20:00)
[2021-07-30] MEDS: aspirin 81mg tab.chew PO SCH (08:24)
[2021-07-30] MEDS: citalopram 20mg tablet PO SCH (08:24)
[2021-07-30] MEDS: carvedilol 6.25mg tablet PO SCH ×2 (08:25→19:59)
[2021-07-30] MEDS: fluconazole 100mg tablet PO SCH (08:25)
[2021-07-30] MEDS: apixaban 5mg tablet PO SCH ×2 (08:26→19:59)
[2021-07-30] MEDS: spironolactone 25 MG tablet PO SCH (08:26)
[2021-07-30] MEDS: atorvastatin 10mg tablet PO SCH (08:26)
[2021-07-30] MEDS: furosemide 40mg tablet PO SCH (08:26)
[2021-07-30 10:10] VITALS: BP 97/50
[2021-07-30] MEDS: LORazepam 0.5 MG tablet PO PRN ×2 (12:58→19:59)
[2021-07-30 15:00] VITALS: BP 94/52
[2021-07-30 18:00] VITALS: BP 100/53
--- NOTE | 2021-07-30 18:42 | NUR ---
Patient in room MED 311. I have received report from RIANNA RUSHING and had the opportunity to ask questions and assume patient care.
[2021-07-30 22:00] VITALS: BP 100/53
[2021-07-31] VITALS (8 sets, daily range): BP systolic 107–121; BP diastolic 58–68
[2021-07-31] MEDS: HYDROmorphone inj. 0.5 MG/0.5 ML DISP.SYRIN IV PRN ×3 (02:05→20:01)
[2021-07-31 05:44] LABS: BASOPHILS # (AUTO) 0.1 X10'3 (0-0.2); BASOPHILS % (AUTO) 1.1 % (0-1); EOSINOPHILS # (AUTO) 0.1 X10'3 (0-0.9); EOSINOPHILS % (AUTO) 2.1 % (0-6); HEMATOCRIT 29.1 % (35.0-45.0); LYMPHOCYTES # (AUTO) 2.2 X10'3 (1.1-4.8); LYMPHOCYTES % (AUTO) 32.2 % (21-51); MEAN CORPUSCULAR HEMOGLOBIN 24.3 PG (27.0-31.0); MEAN CORPUSCULAR HGB CONC 31.1 g/dL (33.0-36.5); MEAN CORPUSCULAR VOLUME 78.1 FL (78-98); MEAN PLATELET VOLUME 7.7 FL (7.4-10.4); MONOCYTES # (AUTO) 0.9 X10'3 (0-0.9); MONOCYTES % (AUTO) 12.8 % (2-12); NEUTROPHILS # (AUTO) 3.6 X10'3 (1.8-7.7); NEUTROPHILS % (AUTO) 51.8 % (42-75); PLATELET COUNT 374 X10'3 (140-440); RED BLOOD COUNT 3.73 X10'6 (4.20-5.60); RED CELL DISTRIBUTION WIDTH 28.3 % (11.5-14.5); WHITE BLOOD COUNT 6.9 X10'3 (4.5-11.0)
[2021-07-31 05:54] LABS: ALANINE AMINOTRANSFERASE 23 U/L (12-78); ALBUMIN 2.5 G/DL (3.4-5.0); ALBUMIN/GLOBULIN RATIO 0.7 (1.1-1.5); ALKALINE PHOSPHATASE 195 IU/L (46-116); ANION GAP 14 (8-16); ASPARTATE AMINO TRANSFERASE 17 U/L (10-37); BILIRUBIN,TOTAL 0.7 MG/DL (0.1-1.0); BLOOD UREA NITROGEN 37 MG/DL (7-18); BUN/CREATININE RATIO 30.8 (6.6-38.0); CALCIUM 8.3 MG/DL (8.5-10.1); CHLORIDE 106 MMOL/L (99-107); POTASSIUM 3.7 MMOL/L (3.5-5.1); SODIUM 138 MMOL/L (135-145); TOTAL CARBON DIOXIDE 18.3 MMOL/L (24-32); TOTAL PROTEIN 6.2 G/DL (6.4-8.2); eGFR 45 ML/MIN
[2021-07-31 05:55] LABS: GLUCOSE 82 MG/DL (70-104)
--- NOTE | 2021-07-31 06:35 | NUR ---
Problems reprioritized. Patient report given, questions answered & plan of care reviewed with MARU RUSHING.
[2021-07-31 06:53] LABS: ANISOCYTOSIS 3+; ELLIPTOCYTES 1+; MICROCYTOSIS 1+; PLATELET ESTIMATE NORMAL
[2021-07-31 06:54] LABS: BURR CELLS 1+; POLYCHROMASIA FEW; SCHISTOCYTES FEW
[2021-07-31 06:55] LABS: LARGE PLATELETS MODERATE
[2021-07-31] MEDS: K and/or MAG REPLACEMENT MC SCH ×2 (08:00→19:51)
[2021-07-31] MEDS: docusate sod 100mg capsule PO SCH ×2 (09:05→19:51)
[2021-07-31] MEDS: atorvastatin 10mg tablet PO SCH (09:05)
[2021-07-31] MEDS: ferrous sulfate 325mg tablet PO SCH (09:05)
[2021-07-31] MEDS: furosemide 40mg tablet PO SCH (09:07)
[2021-07-31] MEDS: citalopram 20mg tablet PO SCH (09:07)
[2021-07-31] MEDS: carvedilol 6.25mg tablet PO SCH ×2 (09:08→19:51)
[2021-07-31] MEDS: spironolactone 25 MG tablet PO SCH (09:08)
[2021-07-31] MEDS: apixaban 5mg tablet PO SCH (09:08)
[2021-07-31] MEDS: aspirin 81mg tab.chew PO SCH (09:08)
[2021-07-31] MEDS: LORazepam 0.5 MG tablet PO PRN ×2 (09:14→17:58)
[2021-07-31] MEDS: fluconazole 100mg tablet PO SCH (10:52)
--- NOTE | 2021-07-31 12:34 | NUR ---
F/u 07/31: Pt has had slight decline in PO intake since last nutrition assessment 07/29 w/ avg PO 42% and partially meeting estimated nutrient needs. Pt would benefit from ONS to assist with wound healing however pt does not want ONS and is currently receiving a Magic Cup BIDLD for additional kcal/protein. Recommend liberalizing to regular diet in view of recent poor PO intake. LBM 07/30, receiving routine colace per EMR. Will continue to follow and make recommendations as appropriate. Recs: 1. Liberalize to Regular if PO does not improve 3. Consider appetite stimulant pending PO trends per MD discretion 2. Magic cup BIDLD; pt does not like ONS 3. Routine bowel care 4. Weekly wts Addendum: 07/31/21 at [address] Amended: Links added. Addendum: 07/31/21 at [address] I have reviewed and agree with note by [employer]. DASH Oconnor
[2021-07-31] MEDS ORDERED: heparin 10,000 units/1 ML INJ IV ONE (12:50)
[2021-07-31] MEDS ORDERED: heparin 10,000 units/1 ML INJ IV PRN (12:50)
[2021-07-31 17:13] LABS: APTT 34 SECONDS (22-32)
[2021-07-31] MEDS: heparin 25,000 UNIT/250ml bag 250 ML IV SCH (17:47)
--- NOTE | 2021-08-01 00:44 | NUR ---
PTT 102 at 1145, Heparin drip on hold for one hour , the increase by 2 units/kg/hr as per protocol
[2021-08-01] MEDS: HYDROmorphone inj. 0.5 MG/0.5 ML DISP.SYRIN IV PRN ×4 (01:45→20:33)
[2021-08-01] MEDS: heparin 25,000 UNIT/250ml bag 250 ML IV SCH (01:56)
[2021-08-01 02:00] VITALS: BP 112/60
[2021-08-01 07:00] VITALS: BP 125/63
[2021-08-01 07:54] LABS: BASOPHILS # (AUTO) 0.1 X10'3 (0-0.2); BASOPHILS % (AUTO) 1.2 % (0-1); EOSINOPHILS # (AUTO) 0.2 X10'3 (0-0.9); HEMATOCRIT 30.3 % (35.0-45.0); HEMOGLOBIN 9.3 g/dl (12.0-16.0); LYMPHOCYTES # (AUTO) 2.3 X10'3 (1.1-4.8); LYMPHOCYTES % (AUTO) 34.1 % (21-51); MEAN CORPUSCULAR HEMOGLOBIN 24.1 PG (27.0-31.0); MEAN CORPUSCULAR HGB CONC 30.6 g/dL (33.0-36.5); MEAN CORPUSCULAR VOLUME 78.7 FL (78-98); MONOCYTES # (AUTO) 0.8 X10'3 (0-0.9); MONOCYTES % (AUTO) 11.8 % (2-12); NEUTROPHILS # (AUTO) 3.4 X10'3 (1.8-7.7); NEUTROPHILS % (AUTO) 49.9 % (42-75); PLATELET COUNT 348 X10'3 (140-440); RED BLOOD COUNT 3.85 X10'6 (4.20-5.60); RED CELL DISTRIBUTION WIDTH 29.1 % (11.5-14.5); WHITE BLOOD COUNT 6.8 X10'3 (4.5-11.0)
[2021-08-01] MEDS: K and/or MAG REPLACEMENT MC SCH ×2 (08:00→17:44)
[2021-08-01 08:15] LABS: ALANINE AMINOTRANSFERASE 18 U/L (12-78); ALBUMIN 2.4 G/DL (3.4-5.0); ALBUMIN/GLOBULIN RATIO 0.7 (1.1-1.5); ALKALINE PHOSPHATASE 178 IU/L (46-116); ANION GAP 10 (8-16); ASPARTATE AMINO TRANSFERASE 14 U/L (10-37); BILIRUBIN,TOTAL 0.8 MG/DL (0.1-1.0); BLOOD UREA NITROGEN 29 MG/DL (7-18); BUN/CREATININE RATIO 30.2 (6.6-38.0); CHLORIDE 106 MMOL/L (99-107); CREATININE 0.96 MG/DL (0.40-0.90); POTASSIUM 3.1 MMOL/L (3.5-5.1); SODIUM 136 MMOL/L (135-145); TOTAL CARBON DIOXIDE 20.5 MMOL/L (24-32); TOTAL PROTEIN 5.9 G/DL (6.4-8.2); eGFR 58 ML/MIN
[2021-08-01 08:20] LABS: GLUCOSE 68 MG/DL (70-104)
[2021-08-01 08:48] LABS: ANISOCYTOSIS 3+; MICROCYTOSIS 1+; PLATELET ESTIMATE NORMAL
[2021-08-01 08:49] LABS: POIKILOCYTOSIS 1+; POLYCHROMASIA FEW; TARGET CELLS FEW
[2021-08-01] MEDS: fluconazole 100mg tablet PO SCH (09:06)
[2021-08-01] MEDS: furosemide 40mg tablet PO SCH (09:07)
[2021-08-01] MEDS: carvedilol 6.25mg tablet PO SCH ×2 (09:07→20:26)
[2021-08-01] MEDS: docusate sod 100mg capsule PO SCH ×2 (09:07→20:26)
[2021-08-01] MEDS: aspirin 81mg tab.chew PO SCH (09:08)
[2021-08-01] MEDS: spironolactone 25 MG tablet PO SCH (09:08)
[2021-08-01] MEDS: ferrous sulfate 325mg tablet PO SCH (09:09)
[2021-08-01] MEDS: citalopram 20mg tablet PO SCH (09:09)
[2021-08-01] MEDS: atorvastatin 10mg tablet PO SCH (09:09)
[2021-08-01 09:33] LABS: APTT 39 SECONDS (22-32)
[2021-08-01 11:00] VITALS: BP 127/61
--- NOTE | 2021-08-01 13:14 | NUR ---
Took verbal order to discontinue IV Heparin. Paged Dr. Chester regarding continuing PO Eliquis..Awaiting return call for orders.
[2021-08-01] MEDS: LORazepam 0.5 MG tablet PO PRN (14:45)
[2021-08-01 15:00] VITALS: BP 104/62
--- NOTE | 2021-08-01 15:26 | NUR ---
CALLED RESP TO CHECK O2 SAT-SHOWING BELOW 80, AFTER MULTIPLE CHECKS AND FINGER PROBE CHANGE, Pt ALERT, NO RESP DISTRESS NOTED, COLOR PINK. ASYMPTOMATIC. NEED FOLLOW-UP.
[2021-08-01] MEDS ORDERED: potassium Cl 20 mEq SR tablet PO PRN (17:30)
[2021-08-01] MEDS ORDERED: magnesium Cl slow-release 64mg tablet PO PRN (17:30)
[2021-08-01 18:00] VITALS: BP 120/65
[2021-08-01] MEDS: enoxaparin 40mg/0.4ml syringe SUBCUT SCH (20:31)
[2021-08-01] MEDS: potassium Cl 20 mEq SR tablet PO PRN (22:08)
[2021-08-02] VITALS (10 sets, daily range): BP systolic 95–123; BP diastolic 52–95
[2021-08-02] MEDS: LORazepam 0.5 MG tablet PO PRN ×2 (00:43→20:23)
[2021-08-02] MEDS: HYDROmorphone inj. 0.5 MG/0.5 ML DISP.SYRIN IV PRN ×5 (02:52→21:42)
[2021-08-02] MEDS: potassium Cl 20 mEq SR tablet PO PRN (02:57)
--- NOTE | 2021-08-02 06:45 | NUR ---
Patient in room MED 311. I have received report from СЕРГЕЙ GARCIA and had the opportunity to ask questions and assume patient care.
[2021-08-02] MEDS: K and/or MAG REPLACEMENT MC SCH ×2 (08:00→20:00)
[2021-08-02] MEDS: enoxaparin 40mg/0.4ml syringe SUBCUT SCH (09:36)
[2021-08-02] MEDS: spironolactone 25 MG tablet PO SCH (09:37)
[2021-08-02] MEDS: citalopram 20mg tablet PO SCH (09:38)
[2021-08-02] MEDS: ferrous sulfate 325mg tablet PO SCH (09:39)
[2021-08-02] MEDS: carvedilol 6.25mg tablet PO SCH ×2 (09:39→20:23)
[2021-08-02] MEDS: aspirin 81mg tab.chew PO SCH (09:39)
[2021-08-02] MEDS: docusate sod 100mg capsule PO SCH ×2 (09:39→20:23)
[2021-08-02] MEDS: furosemide 40mg tablet PO SCH (09:40)
[2021-08-02] MEDS: atorvastatin 10mg tablet PO SCH (09:40)
[2021-08-02] MEDS: fluconazole 100mg tablet PO SCH (09:47)
--- NOTE | 2021-08-02 18:48 | NUR ---
Problems reprioritized. Patient report given, questions answered & plan of care reviewed with СЕРГЕЙ GARCIA.
[2021-08-03 02:00] VITALS: BP 107/60
[2021-08-03] MEDS: HYDROmorphone inj. 0.5 MG/0.5 ML DISP.SYRIN IV PRN ×4 (02:54→20:52)
[2021-08-03 06:30] VITALS: BP 96/47
--- NOTE | 2021-08-03 06:33 | NUR ---
Patient in room MED 311. I have received report from СЕРГЕЙ Naidu and had the opportunity to ask questions and assume patient care.
[2021-08-03] MEDS: citalopram 20mg tablet PO SCH (07:48)
[2021-08-03] MEDS: spironolactone 25 MG tablet PO SCH (07:50)
[2021-08-03] MEDS: fluconazole 100mg tablet PO SCH (07:51)
[2021-08-03] MEDS: aspirin 81mg tab.chew PO SCH (07:51)
[2021-08-03] MEDS: carvedilol 6.25mg tablet PO SCH ×2 (07:53→20:47)
[2021-08-03] MEDS: atorvastatin 10mg tablet PO SCH (07:54)
[2021-08-03] MEDS: ferrous sulfate 325mg tablet PO SCH (07:54)
[2021-08-03] MEDS: furosemide 40mg tablet PO SCH (07:54)
[2021-08-03] MEDS: docusate sod 100mg capsule PO SCH ×2 (07:55→20:47)
[2021-08-03] MEDS: K and/or MAG REPLACEMENT MC SCH ×2 (08:00→20:00)
[2021-08-03 09:54] LABS: HEMATOCRIT 33.1 % (35.0-45.0); HEMOGLOBIN 9.8 g/dl (12.0-16.0); MEAN CORPUSCULAR HEMOGLOBIN 23.8 PG (27.0-31.0); MEAN CORPUSCULAR HGB CONC 29.5 g/dL (33.0-36.5); MEAN CORPUSCULAR VOLUME 80.8 FL (78-98); MEAN PLATELET VOLUME 7.7 FL (7.4-10.4); PLATELET COUNT 276 X10'3 (140-440); RED CELL DISTRIBUTION WIDTH 30.1 % (11.5-14.5); WHITE BLOOD COUNT 6.8 X10'3 (4.5-11.0)
[2021-08-03 10:00] VITALS: BP 102/59
[2021-08-03 10:18] LABS: ALBUMIN 2.7 G/DL (3.4-5.0); ANION GAP 9 (8-16); BLOOD UREA NITROGEN 23 MG/DL (7-18); BUN/CREATININE RATIO 29.1 (6.6-38.0); CALCIUM 8.6 MG/DL (8.5-10.1); CHLORIDE 104 MMOL/L (99-107); CREATININE 0.79 MG/DL (0.40-0.90); POTASSIUM 3.8 MMOL/L (3.5-5.1); SODIUM 135 MMOL/L (135-145); TOTAL CARBON DIOXIDE 21.6 MMOL/L (24-32); eGFR 73 ML/MIN
[2021-08-03 10:22] LABS: GLUCOSE 106 MG/DL (70-104)
[2021-08-03] MEDS: LORazepam 0.5 MG tablet PO PRN (11:25)
--- NOTE | 2021-08-03 13:20 | NUR ---
PER HOSPITALIST, HOSPITALIST SPOKE W/WOC NURSE AND WOC NURSE SAID THAT PROCEDURE OF PLACING WOUND VAC COULD BE DONE AT BEDSIDE, EVEN THROUGH HOSPITALIST KNOWS THAT SURGEON NEEDS TO CONSULT ABOUT WOUND VAC PLACEMENT, HOSPITALIST SAID THAT PT DOES NOT HAVE TO BE NPO AT THIS TIME, BUT IF SURGEON CONSULTS AND ASKS PT TO NPO THEN PLACE NPO BUT CURRENTLY PT IS NOT NPO, CONTINUE TO MONITOR
[2021-08-03 13:53] VITALS: BP 107/59
--- NOTE | 2021-08-03 15:21 | NUR ---
Reassessment: Pt continues to eat poorly, w/ current avg 39% since last nutrition assessment 07/31 and partially meeting estimated nutrient needs. If PO does not improve, consider tube feeding to help meet nutrient needs. LBM 3, pt refused last dose of Colace per EMR. Will continue to follow and make recommendations as appropriate. Recs: 1. Liberalize to Regular diet given poor PO 2. Consider appetite stimulant; per MD discretion 3. Magic cup BIDLD; pt does not like ONS 4. Routine bowel care 5. Weekly wts 6. Consider supplemental tube feeding given poor PO Addendum: 08/03/21 at [address] Amended: Links added. Addendum: 08/03/21 at [address] I have reviewed assessment by buying intern
[2021-08-03 18:00] VITALS: BP 106/60
--- NOTE | 2021-08-03 18:23 | NUR ---
Problems reprioritized. Patient report given, questions answered & plan of care reviewed with СЕРГЕЙ GARCIA.
[2021-08-03 22:00] VITALS: BP 98/60
[2021-08-04] MEDS: HYDROmorphone inj. 0.5 MG/0.5 ML DISP.SYRIN IV PRN ×5 (01:58→22:22)
[2021-08-04 02:00] VITALS: BP 114/58
--- NOTE | 2021-08-04 06:00 | NUR ---
Patient in room MED 311. I have received report from RADHA. СЕРГЕЙ, and had the opportunity to ask questions and assume patient care.
[2021-08-04 07:06] VITALS: BP 117/61
[2021-08-04] MEDS: K and/or MAG REPLACEMENT MC SCH ×2 (08:00→19:33)
[2021-08-04] MEDS: atorvastatin 10mg tablet PO SCH (08:43)
[2021-08-04] MEDS: furosemide 40mg tablet PO SCH (08:43)
[2021-08-04] MEDS: carvedilol 6.25mg tablet PO SCH ×2 (08:44→20:05)
[2021-08-04] MEDS: aspirin 81mg tab.chew PO SCH (08:44)
[2021-08-04] MEDS: docusate sod 100mg capsule PO SCH ×2 (08:44→20:05)
[2021-08-04] MEDS: citalopram 20mg tablet PO SCH (08:45)
[2021-08-04] MEDS: ferrous sulfate 325mg tablet PO SCH (08:45)
[2021-08-04] MEDS: spironolactone 25 MG tablet PO SCH (08:45)
[2021-08-04] MEDS: fluconazole 100mg tablet PO SCH (08:46)
[2021-08-04 10:00] VITALS: BP 137/70
[2021-08-04 14:00] VITALS: BP 102/51
[2021-08-04 18:00] VITALS: BP 110/56
--- NOTE | 2021-08-04 18:26 | NUR ---
Problems reprioritized. Patient report given, questions answered & plan of care reviewed with СЕРГЕЙ GARCIA.
[2021-08-04 22:00] VITALS: BP 112/65
[2021-08-05 02:00] VITALS: BP 115/63
[2021-08-05] MEDS: HYDROmorphone inj. 0.5 MG/0.5 ML DISP.SYRIN IV PRN ×4 (02:54→20:23)
[2021-08-05 06:00] VITALS: BP 115/67
--- NOTE | 2021-08-05 06:37 | NUR ---
Patient in room MED 311. I have received report from RADHA.СЕРГЕЙ, and had the opportunity to ask questions and assume patient care.
[2021-08-05] MEDS: aspirin 81mg tab.chew PO SCH (06:59)
[2021-08-05] MEDS: carvedilol 6.25mg tablet PO SCH ×2 (08:00→20:23)
[2021-08-05] MEDS: docusate sod 100mg capsule PO SCH ×2 (08:00→20:23)
[2021-08-05] MEDS: K and/or MAG REPLACEMENT MC SCH ×2 (08:00→19:31)
[2021-08-05] MEDS: furosemide 40mg tablet PO SCH (08:00)
[2021-08-05] MEDS: spironolactone 25 MG tablet PO SCH (08:30)
[2021-08-05 10:15] VITALS: BP 104/57
--- NOTE | 2021-08-05 11:54 | NUR ---
pt hangs onto furniture Addendum: 08/05/21 at 1154 by Miriam Sin RN Amended: Links added.
--- NOTE | 2021-08-05 14:11 | NUR ---
Reassessment: Pt continues w/ similar PO intake, avg 43% x 9 meals which meets 67% of est energy needs and 64% of est protein needs. Pt may benefit from supplemental TF to help meet nutrient needs and to assist w/ wound healing if within POC. LBM 3 w/ routine colace. Will continue to monitor. Recs: 1. Liberalize to Regular diet given poor PO 2. Consider appetite stimulant; per MD discretion 3. Magic cup BIDLD; pt does not like ONS 4. Routine bowel care 5. Weekly wts 6. Consider supplemental tube feeding given poor PO Addendum: 08/05/21 at [address] Amended: Links added.
[2021-08-05 15:00] VITALS: BP 106/67
[2021-08-05] MEDS: atorvastatin 10mg tablet PO SCH (16:22)
[2021-08-05] MEDS: ferrous sulfate 325mg tablet PO SCH (16:22)
[2021-08-05] MEDS: citalopram 20mg tablet PO SCH (16:22)
--- NOTE | 2021-08-05 17:48 | NUR ---
PT NPO FOR PROCEDURE. MORNING MEDS HELD, PROVIDER NOTIFIED.
[2021-08-05 18:00] VITALS: BP 138/62
--- NOTE | 2021-08-05 18:34 | NUR ---
Problems reprioritized. Patient report given, questions answered & plan of care reviewed with СЕРГЕЙ GARCIA.
--- NOTE | 2021-08-05 18:41 | NUR ---
Problems reprioritized. Patient report given, questions answered & plan of care reviewed with СЕРГЕЙ GARCIA.
[2021-08-05 22:00] VITALS: BP 130/68
[2021-08-06] MEDS: LORazepam 0.5 MG tablet PO PRN (00:30)
[2021-08-06 02:00] VITALS: BP 106/59
[2021-08-06] MEDS: HYDROmorphone inj. 0.5 MG/0.5 ML DISP.SYRIN IV PRN ×3 (05:59→18:32)
[2021-08-06 06:00] VITALS: BP 119/56
[2021-08-06] MEDS: K and/or MAG REPLACEMENT MC SCH ×4 (08:00→20:00)
[2021-08-06] MEDS: docusate sod 100mg capsule PO SCH ×2 (08:52→20:04)
[2021-08-06] MEDS: atorvastatin 10mg tablet PO SCH (08:53)
[2021-08-06] MEDS: aspirin 81mg tab.chew PO SCH (08:53)
[2021-08-06] MEDS: citalopram 20mg tablet PO SCH (08:53)
[2021-08-06] MEDS: carvedilol 6.25mg tablet PO SCH ×2 (08:54→20:04)
[2021-08-06] MEDS: furosemide 40mg tablet PO SCH (08:54)
[2021-08-06] MEDS: ferrous sulfate 325mg tablet PO SCH (08:54)
[2021-08-06] MEDS: spironolactone 25 MG tablet PO SCH (08:55)
[2021-08-06 11:00] VITALS: BP 128/65
[2021-08-06] MEDS ORDERED: magnesium 4gm in 100ml NS 100 ML IV PRN (14:20)
[2021-08-06] MEDS ORDERED: potassium CL 10mEq/100ml bag 100 ML IV PRN (14:20)
[2021-08-06] MEDS ORDERED: potassium Cl 20 mEq SR tablet PO PRN ×2 (14:20)
[2021-08-06] MEDS ORDERED: magnesium Cl slow-release 64mg tablet PO PRN (14:20)
[2021-08-06 18:00] VITALS: BP 110/61
[2021-08-06 22:00] VITALS: BP 90/42
[2021-08-06 23:11] VITALS: BP 103/46
[2021-08-07] VITALS (20 sets, daily range): BP systolic 94–121; BP diastolic 45–68
[2021-08-07] MEDS: LORazepam 0.5 MG tablet PO PRN ×2 (00:13→13:39)
[2021-08-07] MEDS: HYDROmorphone inj. 0.5 MG/0.5 ML DISP.SYRIN IV PRN ×3 (02:42→20:39)
[2021-08-07 06:07] LABS: BASOPHILS # (AUTO) 0.1 X10'3 (0-0.2); BASOPHILS % (AUTO) 0.9 % (0-1); EOSINOPHILS # (AUTO) 0.2 X10'3 (0-0.9); EOSINOPHILS % (AUTO) 1.6 % (0-6); HEMATOCRIT 32.8 % (35.0-45.0); LYMPHOCYTES # (AUTO) 2.3 X10'3 (1.1-4.8); LYMPHOCYTES % (AUTO) 20.6 % (21-51); MEAN CORPUSCULAR HGB CONC 30.6 g/dL (33.0-36.5); MEAN CORPUSCULAR VOLUME 78.4 FL (78-98); MEAN PLATELET VOLUME 8.6 FL (7.4-10.4); MONOCYTES % (AUTO) 8.8 % (2-12); NEUTROPHILS # (AUTO) 7.5 X10'3 (1.8-7.7); NEUTROPHILS % (AUTO) 68.1 % (42-75); PLATELET COUNT 221 X10'3 (140-440); RED BLOOD COUNT 4.18 X10'6 (4.20-5.60); RED CELL DISTRIBUTION WIDTH 28.9 % (11.5-14.5); WHITE BLOOD COUNT 11.1 X10'3 (4.5-11.0)
[2021-08-07 06:18] LABS: ALANINE AMINOTRANSFERASE 14 U/L (12-78); ALBUMIN 2.4 G/DL (3.4-5.0); ALBUMIN/GLOBULIN RATIO 0.6 (1.1-1.5); ALKALINE PHOSPHATASE 150 IU/L (46-116); ANION GAP 9 (8-16); ASPARTATE AMINO TRANSFERASE 14 U/L (10-37); BILIRUBIN,TOTAL 0.8 MG/DL (0.1-1.0); BLOOD UREA NITROGEN 19 MG/DL (7-18); BUN/CREATININE RATIO 23.8 (6.6-38.0); CALCIUM 7.9 MG/DL (8.5-10.1); CHLORIDE 104 MMOL/L (99-107); MAGNESIUM 1.8 MG/DL (1.5-2.4); PHOSPHORUS 2.9 MG/DL (2.3-4.5); SODIUM 138 MMOL/L (135-145); TOTAL CARBON DIOXIDE 25.4 MMOL/L (24-32); TOTAL PROTEIN 6.2 G/DL (6.4-8.2); eGFR 72 ML/MIN
[2021-08-07 06:35] LABS: GLUCOSE 75 MG/DL (70-104)
[2021-08-07 06:46] LABS: POTASSIUM 2.8 MMOL/L (3.5-5.1)
[2021-08-07 07:25] LABS: ANISOCYTOSIS 3+; MICROCYTOSIS 1+; PLATELET ESTIMATE NORMAL; TARGET CELLS FEW
[2021-08-07] MEDS: potassium Cl 20 mEq SR tablet PO SCH ×2 (07:25→08:58)
[2021-08-07] MEDS: K and/or MAG REPLACEMENT MC SCH ×4 (07:27→20:00)
[2021-08-07] MEDS ORDERED: potassium Cl 20 mEq SR tablet PO STA (07:31)
[2021-08-07] MEDS: aspirin 81mg tab.chew PO SCH (08:00)
[2021-08-07] MEDS: furosemide 40mg tablet PO SCH (08:00)
[2021-08-07] MEDS: ferrous sulfate 325mg tablet PO SCH (08:00)
[2021-08-07] MEDS: docusate sod 100mg capsule PO SCH ×2 (08:00→20:00)
[2021-08-07] MEDS: atorvastatin 10mg tablet PO SCH (08:00)
[2021-08-07] MEDS: spironolactone 25 MG tablet PO SCH (08:30)
[2021-08-07] MEDS ORDERED: potassium Cl 20 mEq SR tablet PO ONE (09:00)
[2021-08-07] MEDS: citalopram 20mg tablet PO SCH (13:38)
[2021-08-07] MEDS: carvedilol 6.25mg tablet PO SCH ×2 (13:39→20:39)
--- NOTE | 2021-08-07 14:53 | NUR ---
Pt to OR for debridement and VAC placement, not seen by [facility] nurse today. Spoke with charge nurse. Addendum: 08/07/21 at 1459 by Opal Muro RN Amended: Links added.
[2021-08-07] MEDS ORDERED: ondansetron/PF 4mg/2ml inj IV PRN (15:15)
[2021-08-07] MEDS ORDERED: hydrALAZINE 20mg/ml inj. IV PRN (15:15)
[2021-08-07] MEDS ORDERED: ringers solution, lacted 1,000 ML IV SCH (15:15)
[2021-08-07] MEDS ORDERED: fentaNYL/PF 50MCG/1 ML 2ML syringe IV PRN ×2 (15:15)
[2021-08-07] MEDS ORDERED: morphine 4 MG/ML inj SYRINge IV PRN (15:15)
[2021-08-07] MEDS ORDERED: morphine 2 MG/ML inj. syringe IV PRN (15:15)
[2021-08-07] MEDS ORDERED: labetalol 20mg/4ml (5mg/ml) syringe IV PRN (15:15)
[2021-08-07] MEDS ORDERED: FENTANYL CITRATE/PF 50 MCG/1 ML VIAL ONE ×2 (15:35)
[2021-08-07] MEDS ORDERED: ondansetron/PF 4mg/2ml inj ONE (15:36)
[2021-08-07] MEDS ORDERED: dexamethasone sod phosphate 4mg/ml inj. ONE (15:36)
[2021-08-07] MEDS ORDERED: midazolam 1 mg/ML 2ml injection ONE (15:36)
[2021-08-07] MEDS ORDERED: etomidate 2mg/ml inj. ONE (15:36)
--- NOTE | 2021-08-07 16:25 | NUR ---
Received from OR via [facility] , accompanied by Anesthesiologist DR ALCALA and report given by Anesthesiolgist. PATIENT CAME OUT ON 10 LITERS MASK WITH LMA. VSS. BANDAGE ON RIGHT BUTTOCK, BANDAGE BEHIND RIGHT KNEE. TWO DRAINS TO A WOUND VAC ON UPPER AND LOWER RIGHT HIP.PIV IN LEFT WRIST 20 G Addendum: 08/07/21 at 1657 by Lelia Mckinnon RN Amended: Links added.
--- NOTE | 2021-08-07 17:58 | NUR ---
Pt returned from recovery via [facility] accompanied per database development project manager. Pt asleep, responsive to name, HOWARD's to command,vitals taken and placed in chart,, Wound vac intactx2 areas y-sited to wound vac with setting 125suction-small amount of serosanguinous drainage noted.No signs of distress, Family member at bedside, Received chart from database development project manager, Family member given patient belongings-white jewelry(1pair of small hoop earing and a silver heart necklace).
--- NOTE | 2021-08-07 18:34 | NUR ---
Patient in room MED 311. I have received report from СЕРГЕЙ Pierce and had the opportunity to ask questions and assume patient care.
[2021-08-08] VITALS (8 sets, daily range): BP systolic 99–111; BP diastolic 42–58
[2021-08-08] MEDS: LORazepam 0.5 MG tablet PO PRN ×2 (00:05→15:11)
[2021-08-08] MEDS: HYDROmorphone inj. 0.5 MG/0.5 ML DISP.SYRIN IV PRN ×5 (02:06→23:30)
--- NOTE | 2021-08-08 06:23 | NUR ---
Problems reprioritized. Patient report given, questions answered & plan of care reviewed with СЕРГЕЙ Shook.
[2021-08-08 06:34] LABS: BASOPHILS % (AUTO) 0.4 % (0-1); EOSINOPHILS % (AUTO) 0.1 % (0-6); HEMATOCRIT 35.3 % (35.0-45.0); LYMPHOCYTES # (AUTO) 1.1 X10'3 (1.1-4.8); MEAN CORPUSCULAR HEMOGLOBIN 24.9 PG (27.0-31.0); MEAN CORPUSCULAR HGB CONC 31.1 g/dL (33.0-36.5); MEAN CORPUSCULAR VOLUME 79.9 FL (78-98); MEAN PLATELET VOLUME 8.5 FL (7.4-10.4); MONOCYTES # (AUTO) 0.3 X10'3 (0-0.9); MONOCYTES % (AUTO) 4.5 % (2-12); NEUTROPHILS # (AUTO) 5.3 X10'3 (1.8-7.7); PLATELET COUNT 242 X10'3 (140-440); RED BLOOD COUNT 4.41 X10'6 (4.20-5.60); RED CELL DISTRIBUTION WIDTH 28.5 % (11.5-14.5); WHITE BLOOD COUNT 6.7 X10'3 (4.5-11.0)
[2021-08-08 06:51] LABS: ALANINE AMINOTRANSFERASE 16 U/L (12-78); ALBUMIN 2.7 G/DL (3.4-5.0); ALBUMIN/GLOBULIN RATIO 0.7 (1.1-1.5); ALKALINE PHOSPHATASE 145 IU/L (46-116); ANION GAP 6 (8-16); ASPARTATE AMINO TRANSFERASE 15 U/L (10-37); BILIRUBIN,TOTAL 0.9 MG/DL (0.1-1.0); BLOOD UREA NITROGEN 20 MG/DL (7-18); BUN/CREATININE RATIO 22.2 (6.6-38.0); CALCIUM 8.5 MG/DL (8.5-10.1); CHLORIDE 101 MMOL/L (99-107); PHOSPHORUS 2.4 MG/DL (2.3-4.5); POTASSIUM 4.2 MMOL/L (3.5-5.1); SODIUM 130 MMOL/L (135-145); TOTAL CARBON DIOXIDE 23.5 MMOL/L (24-32); TOTAL PROTEIN 6.8 G/DL (6.4-8.2); eGFR 63 ML/MIN
[2021-08-08 06:53] LABS: GLUCOSE 240 MG/DL (70-104)
[2021-08-08] MEDS: citalopram 20mg tablet PO SCH (07:44)
[2021-08-08] MEDS: docusate sod 100mg capsule PO SCH ×2 (07:44→19:35)
[2021-08-08] MEDS: carvedilol 6.25mg tablet PO SCH ×2 (07:44→19:35)
[2021-08-08] MEDS: aspirin 81mg tab.chew PO SCH (07:44)
[2021-08-08] MEDS: atorvastatin 10mg tablet PO SCH (07:45)
[2021-08-08] MEDS: furosemide 40mg tablet PO SCH (07:45)
[2021-08-08] MEDS: ferrous sulfate 325mg tablet PO SCH (07:45)
[2021-08-08] MEDS: spironolactone 25 MG tablet PO SCH (07:47)
[2021-08-08] MEDS: K and/or MAG REPLACEMENT MC SCH ×4 (08:00→18:52)
--- NOTE | 2021-08-08 12:50 | NUR ---
Reassessment: Pt s/p I&D with wound VAC placement to right hip 08/07. PO intake has significantly improved since last RD assessment (08/05) documented with average 79% PO intake of last six meals with mostly 100% PO intake of protein and 100% PO intake of breakfast this morning meeting estimated nutrient needs. Pt continues receiving a Magic Cup BIDLD as pt does not like ONS. LBM 08/07. No further nutrition intervention implemented at this time. Will continue to follow. Recommendations: 1. Liberalize to Regular diet given poor PO intake hx 2. Consider appetite stimulant; per MD discretion 3. Magic cup BIDLD; pt does not like ONS 4. Routine bowel care 5. Scaled weight this admit; weekly scaled weights thereafter Addendum: 08/08/21 at [address] Amended: Links added.
--- NOTE | 2021-08-08 14:15 | NUR ---
Noted that wound on upper right thigh is leaking cristy red blood. wound vac is hooked up and running but not working on this wound. Paged Dr. Angeles. ordered to disconnect the wound vac and dress the wound with gauze and nando bandage. MD stated that he would deal with the wound on Tuesday. Followed MD orders. will continue to monitor closely.
[2021-08-08] MEDS: clindamycin 600mg/D5W 50ml 50 ML IV SCH ×2 (15:00→19:34)
--- NOTE | 2021-08-08 17:05 | NUR ---
New dressings to right thigh drenched with blood. Redressed again. will monitor.
[2021-08-08] MEDS: apixaban 5mg tablet PO SCH (19:35)
[2021-08-09 02:00] VITALS: BP 108/51
[2021-08-09] MEDS: clindamycin 600mg/D5W 50ml 50 ML IV SCH ×4 (03:21→19:52)
[2021-08-09] MEDS: HYDROmorphone inj. 0.5 MG/0.5 ML DISP.SYRIN IV PRN ×4 (05:25→19:04)
--- NOTE | 2021-08-09 06:10 | NUR ---
received report from arlin keene rn
--- NOTE | 2021-08-09 06:14 | NUR ---
Problems reprioritized. Patient report given, questions answered & plan of care reviewed with СЕРГЕЙ Benson.
[2021-08-09 06:30] VITALS: BP 100/55
[2021-08-09 07:20] LABS: ALANINE AMINOTRANSFERASE 23 U/L (12-78); ALBUMIN 2.6 G/DL (3.4-5.0); ALBUMIN/GLOBULIN RATIO 0.7 (1.1-1.5); ALKALINE PHOSPHATASE 129 IU/L (46-116); ANION GAP 11 (8-16); ASPARTATE AMINO TRANSFERASE 24 U/L (10-37); BILIRUBIN,TOTAL 0.6 MG/DL (0.1-1.0); BLOOD UREA NITROGEN 20 MG/DL (7-18); CALCIUM 8.2 MG/DL (8.5-10.1); CHLORIDE 103 MMOL/L (99-107); CREATININE 0.77 MG/DL (0.40-0.90); GLUCOSE 78 MG/DL (70-104); MAGNESIUM 1.8 MG/DL (1.5-2.4); PHOSPHORUS 2.9 MG/DL (2.3-4.5); POTASSIUM 3.9 MMOL/L (3.5-5.1); SODIUM 137 MMOL/L (135-145); TOTAL PROTEIN 6.2 G/DL (6.4-8.2); eGFR 75 ML/MIN
[2021-08-09 07:31] LABS: BASOPHILS % (AUTO) 0.2 % (0-1); EOSINOPHILS % (AUTO) 0.3 % (0-6); HEMATOCRIT 31.1 % (35.0-45.0); HEMOGLOBIN 9.4 g/dl (12.0-16.0); LYMPHOCYTES % (AUTO) 26.8 % (21-51); MEAN CORPUSCULAR HEMOGLOBIN 24.3 PG (27.0-31.0); MEAN CORPUSCULAR HGB CONC 30.1 g/dL (33.0-36.5); MEAN CORPUSCULAR VOLUME 80.6 FL (78-98); MEAN PLATELET VOLUME 8.5 FL (7.4-10.4); MONOCYTES # (AUTO) 1.1 X10'3 (0-0.9); MONOCYTES % (AUTO) 10.1 % (2-12); NEUTROPHILS # (AUTO) 6.9 X10'3 (1.8-7.7); NEUTROPHILS % (AUTO) 62.6 % (42-75); PLATELET COUNT 219 X10'3 (140-440); RED BLOOD COUNT 3.86 X10'6 (4.20-5.60); RED CELL DISTRIBUTION WIDTH 29.5 % (11.5-14.5)
[2021-08-09 07:55] LABS: PLATELET ESTIMATE NORMAL
[2021-08-09 07:56] LABS: ANISOCYTOSIS 3+; SCHISTOCYTES FEW; TARGET CELLS FEW
[2021-08-09] MEDS: K and/or MAG REPLACEMENT MC SCH ×4 (08:00→20:00)
[2021-08-09] MEDS: docusate sod 100mg capsule PO SCH ×2 (08:00→20:00)
[2021-08-09] MEDS: citalopram 20mg tablet PO SCH (08:26)
[2021-08-09] MEDS: carvedilol 6.25mg tablet PO SCH ×2 (08:26→19:52)
[2021-08-09] MEDS: apixaban 5mg tablet PO SCH ×2 (08:26→19:52)
[2021-08-09] MEDS: aspirin 81mg tab.chew PO SCH (08:26)
[2021-08-09] MEDS: atorvastatin 10mg tablet PO SCH (08:26)
[2021-08-09] MEDS: ferrous sulfate 325mg tablet PO SCH (08:27)
[2021-08-09] MEDS: spironolactone 25 MG tablet PO SCH (08:27)
[2021-08-09] MEDS: furosemide 40mg tablet PO SCH (08:27)
[2021-08-09] MEDS: LORazepam 0.5 MG tablet PO PRN ×2 (10:31→22:23)
[2021-08-09 11:00] VITALS: BP 87/46
[2021-08-09 15:00] VITALS: BP 88/48
[2021-08-09 18:00] VITALS: BP 107/55
--- NOTE | 2021-08-09 18:11 | NUR ---
GAVE REPORT TO August,
[2021-08-09 22:00] VITALS: BP 104/50
[2021-08-10] VITALS (7 sets, daily range): BP systolic 91–114; BP diastolic 50–56
[2021-08-10] MEDS: HYDROmorphone inj. 0.5 MG/0.5 ML DISP.SYRIN IV PRN ×2 (00:07→05:51)
[2021-08-10] MEDS: clindamycin 600mg/D5W 50ml 50 ML IV SCH ×4 (03:28→19:45)
[2021-08-10 07:09] LABS: BASOPHILS # (AUTO) 0.1 X10'3 (0-0.2); BASOPHILS % (AUTO) 0.8 % (0-1); EOSINOPHILS # (AUTO) 0.3 X10'3 (0-0.9); EOSINOPHILS % (AUTO) 2.7 % (0-6); LYMPHOCYTES # (AUTO) 3.2 X10'3 (1.1-4.8); LYMPHOCYTES % (AUTO) 33.2 % (21-51); MONOCYTES # (AUTO) 1.1 X10'3 (0-0.9); MONOCYTES % (AUTO) 11.4 % (2-12); NEUTROPHILS # (AUTO) 4.9 X10'3 (1.8-7.7); NEUTROPHILS % (AUTO) 51.9 % (42-75); PLATELET COUNT 185 X10'3 (140-440); WHITE BLOOD COUNT 9.5 X10'3 (4.5-11.0)
[2021-08-10 07:30] LABS: HEMATOCRIT 31.7 % (35.0-45.0); HEMOGLOBIN 10.3 g/dl (12.0-16.0); MEAN CORPUSCULAR HEMOGLOBIN 25.8 PG (27.0-31.0); MEAN CORPUSCULAR HGB CONC 32.3 g/dL (33.0-36.5); MEAN CORPUSCULAR VOLUME 79.8 FL (78-98); RED BLOOD COUNT 3.97 X10'6 (4.20-5.60); RED CELL DISTRIBUTION WIDTH 28.3 % (11.5-14.5)
[2021-08-10 07:39] LABS: ALANINE AMINOTRANSFERASE 37 U/L (12-78); ALBUMIN 2.7 G/DL (3.4-5.0); ALBUMIN/GLOBULIN RATIO 0.7 (1.1-1.5); ALKALINE PHOSPHATASE 164 IU/L (46-116); ANION GAP 9 (8-16); ASPARTATE AMINO TRANSFERASE 37 U/L (10-37); BILIRUBIN,TOTAL 0.6 MG/DL (0.1-1.0); BLOOD UREA NITROGEN 15 MG/DL (7-18); BUN/CREATININE RATIO 18.5 (6.6-38.0); CHLORIDE 103 MMOL/L (99-107); CREATININE 0.81 MG/DL (0.40-0.90); MAGNESIUM 1.9 MG/DL (1.5-2.4); PHOSPHORUS 3.9 MG/DL (2.3-4.5); POTASSIUM 3.5 MMOL/L (3.5-5.1); SODIUM 138 MMOL/L (135-145); TOTAL CARBON DIOXIDE 26.1 MMOL/L (24-32); TOTAL PROTEIN 6.5 G/DL (6.4-8.2); eGFR 71 ML/MIN
[2021-08-10 07:42] LABS: GLUCOSE 79 MG/DL (70-104)
[2021-08-10] MEDS: K and/or MAG REPLACEMENT MC SCH ×3 (08:00→20:00)
[2021-08-10] MEDS: docusate sod 100mg capsule PO SCH ×2 (08:00→20:00)
[2021-08-10 08:37] LABS: ANISOCYTOSIS 3+; ELLIPTOCYTES FEW; PLATELET ESTIMATE NORMAL
[2021-08-10] MEDS: atorvastatin 10mg tablet PO SCH (09:40)
[2021-08-10] MEDS: carvedilol 6.25mg tablet PO SCH ×2 (09:40→20:00)
[2021-08-10] MEDS: citalopram 20mg tablet PO SCH (09:40)
[2021-08-10] MEDS: ferrous sulfate 325mg tablet PO SCH (09:41)
[2021-08-10] MEDS: spironolactone 25 MG tablet PO SCH (09:47)
[2021-08-10] MEDS: apixaban 5mg tablet PO SCH ×2 (09:54→19:48)
[2021-08-10] MEDS: aspirin 81mg tab.chew PO SCH (09:54)
[2021-08-10] MEDS: LORazepam 0.5 MG tablet PO PRN ×2 (09:54→21:29)
[2021-08-10] MEDS: furosemide 40mg tablet PO SCH (13:06)
[2021-08-10] MEDS: HYDROcodone/acetaminophen 5mg/325mg tablet PO PRN ×3 (15:31→23:29)
--- NOTE | 2021-08-10 15:57 | NUR ---
Pt no longer has NWPT on and will be seen by [facility] nurses tomorrow. Spoke with primary nurse. Addendum: 08/10/21 at 1558 by Opal Muro RN Amended: Links added.
[2021-08-11 02:00] VITALS: BP 117/65
[2021-08-11] MEDS: HYDROcodone/acetaminophen 5mg/325mg tablet PO PRN ×3 (05:36→21:25)
[2021-08-11] MEDS: clindamycin 600mg/D5W 50ml 50 ML IV SCH ×4 (05:37→20:16)
[2021-08-11 06:00] VITALS: BP 114/55
[2021-08-11 06:00] LABS: BASOPHILS # (AUTO) 0.1 X10'3 (0-0.2); EOSINOPHILS # (AUTO) 0.2 X10'3 (0-0.9); HEMATOCRIT 33.2 % (35.0-45.0); HEMOGLOBIN 10.2 g/dl (12.0-16.0); LYMPHOCYTES # (AUTO) 2.7 X10'3 (1.1-4.8); LYMPHOCYTES % (AUTO) 33.9 % (21-51); MEAN CORPUSCULAR HEMOGLOBIN 24.7 PG (27.0-31.0); MEAN CORPUSCULAR HGB CONC 30.8 g/dL (33.0-36.5); MEAN CORPUSCULAR VOLUME 80.1 FL (78-98); MEAN PLATELET VOLUME 8.4 FL (7.4-10.4); MONOCYTES % (AUTO) 12.5 % (2-12); NEUTROPHILS % (AUTO) 50.6 % (42-75); PLATELET COUNT 242 X10'3 (140-440); RED BLOOD COUNT 4.15 X10'6 (4.20-5.60); RED CELL DISTRIBUTION WIDTH 29.3 % (11.5-14.5); WHITE BLOOD COUNT 7.9 X10'3 (4.5-11.0)
[2021-08-11 06:52] LABS: ALANINE AMINOTRANSFERASE 31 U/L (12-78); ALBUMIN 2.7 G/DL (3.4-5.0); ALBUMIN/GLOBULIN RATIO 0.7 (1.1-1.5); ALKALINE PHOSPHATASE 131 IU/L (46-116); ANION GAP 10 (8-16); ASPARTATE AMINO TRANSFERASE 28 U/L (10-37); BILIRUBIN,TOTAL 0.8 MG/DL (0.1-1.0); BLOOD UREA NITROGEN 18 MG/DL (7-18); CHLORIDE 103 MMOL/L (99-107); PHOSPHORUS 3.6 MG/DL (2.3-4.5); POTASSIUM 3.8 MMOL/L (3.5-5.1); SODIUM 138 MMOL/L (135-145); TOTAL CARBON DIOXIDE 25.5 MMOL/L (24-32); TOTAL PROTEIN 6.4 G/DL (6.4-8.2); eGFR 55 ML/MIN
[2021-08-11 07:10] LABS: GLUCOSE 74 MG/DL (70-104)
[2021-08-11 07:25] LABS: MAGNESIUM 2.1 MG/DL (1.5-2.4)
[2021-08-11] MEDS: K and/or MAG REPLACEMENT MC SCH ×4 (08:00→20:00)
[2021-08-11] MEDS: atorvastatin 10mg tablet PO SCH (08:53)
[2021-08-11] MEDS: docusate sod 100mg capsule PO SCH ×2 (08:53→20:00)
[2021-08-11] MEDS: spironolactone 25 MG tablet PO SCH (08:54)
[2021-08-11] MEDS: apixaban 5mg tablet PO SCH ×2 (08:54→20:19)
[2021-08-11] MEDS: aspirin 81mg tab.chew PO SCH (08:54)
[2021-08-11] MEDS: ferrous sulfate 325mg tablet PO SCH (08:54)
[2021-08-11] MEDS: citalopram 20mg tablet PO SCH (08:54)
[2021-08-11] MEDS: furosemide 40mg tablet PO SCH (08:54)
[2021-08-11] MEDS: carvedilol 6.25mg tablet PO SCH ×2 (08:54→20:00)
[2021-08-11] MEDS: LORazepam 0.5 MG tablet PO PRN (14:39)
[2021-08-11 18:00] VITALS: BP 106/59
[2021-08-11 22:00] VITALS: BP 106/59
[2021-08-12] VITALS (7 sets, daily range): BP systolic 96–132; BP diastolic 41–70
[2021-08-12] MEDS: LORazepam 0.5 MG tablet PO PRN ×3 (00:08→22:50)
[2021-08-12] MEDS: clindamycin 600mg/D5W 50ml 50 ML IV SCH ×4 (02:29→19:55)
[2021-08-12] MEDS: HYDROcodone/acetaminophen 5mg/325mg tablet PO PRN ×4 (03:48→19:57)
[2021-08-12] MEDS: atorvastatin 10mg tablet PO SCH (07:14)
[2021-08-12] MEDS: carvedilol 6.25mg tablet PO SCH ×2 (07:14→19:55)
[2021-08-12] MEDS: docusate sod 100mg capsule PO SCH ×2 (07:14→19:58)
[2021-08-12] MEDS: apixaban 5mg tablet PO SCH ×2 (07:14→19:55)
[2021-08-12] MEDS: citalopram 20mg tablet PO SCH (07:14)
[2021-08-12] MEDS: furosemide 40mg tablet PO SCH (07:14)
[2021-08-12] MEDS: ferrous sulfate 325mg tablet PO SCH (07:14)
[2021-08-12] MEDS: aspirin 81mg tab.chew PO SCH (07:14)
[2021-08-12] MEDS: K and/or MAG REPLACEMENT MC SCH ×4 (08:00→20:00)
[2021-08-12] MEDS: spironolactone 25 MG tablet PO SCH (09:23)
--- NOTE | 2021-08-12 18:29 | NUR ---
Patient in room MED 311. I have received report from Bryn RUSHING and had the opportunity to ask questions and assume patient care.
--- NOTE | 2021-08-12 23:25 | NUR ---
Student documentation: I have reviewed and agree with all interventions, assessments performed and documented by Bozena.
[2021-08-13] VITALS (8 sets, daily range): BP systolic 95–130; BP diastolic 41–69
[2021-08-13] MEDS: clindamycin 600mg/D5W 50ml 50 ML IV SCH ×4 (01:57→20:17)
--- NOTE | 2021-08-13 06:20 | NUR ---
Problems reprioritized. Patient report given, questions answered & plan of care reviewed with Bryn RUSHING.
[2021-08-13] MEDS: spironolactone 25 MG tablet PO SCH (08:13)
[2021-08-13] MEDS: carvedilol 6.25mg tablet PO SCH ×2 (08:13→19:22)
[2021-08-13] MEDS: apixaban 5mg tablet PO SCH ×2 (08:13→20:17)
[2021-08-13] MEDS: ferrous sulfate 325mg tablet PO SCH (08:13)
[2021-08-13] MEDS: furosemide 40mg tablet PO SCH (08:13)
[2021-08-13] MEDS: citalopram 20mg tablet PO SCH (08:13)
[2021-08-13] MEDS: aspirin 81mg tab.chew PO SCH (08:14)
[2021-08-13] MEDS: docusate sod 100mg capsule PO SCH ×2 (08:14→20:17)
[2021-08-13] MEDS: atorvastatin 10mg tablet PO SCH (08:15)
[2021-08-13] MEDS: K and/or MAG REPLACEMENT MC SCH ×4 (08:15→19:21)
--- NOTE | 2021-08-13 08:33 | NUR ---
Reassessment: Pt continues on Heart Healthy diet w/ moderate PO intake, avg 55% x 9 meals w/ Magic Cups BIDLD which meets approximately 90% of est energy needs and 85% of est protein needs. LB 08/07. No further nutrition intervention implemented at this time. Will continue to follow. Recommendations: 1. Liberalize to Regular diet given poor PO intake hx 2. Consider appetite stimulant; per MD discretion 3. Magic cup BIDLD; pt does not like ONS 4. Routine bowel care 5. Scaled weight this admit; weekly scaled weights thereafter Addendum: 08/13/21 at [address] Amended: Links added.
[2021-08-13] MEDS: HYDROcodone/acetaminophen 5mg/325mg tablet PO PRN ×2 (14:08→20:17)
[2021-08-13] MEDS: LORazepam 0.5 MG tablet PO PRN (16:30)
[2021-08-14 02:00] VITALS: BP 132/72
[2021-08-14] MEDS: clindamycin 600mg/D5W 50ml 50 ML IV SCH ×4 (03:44→20:29)
[2021-08-14] MEDS: HYDROcodone/acetaminophen 5mg/325mg tablet PO PRN ×5 (03:49→23:39)
[2021-08-14 06:00] VITALS: BP 147/76
[2021-08-14] MEDS: K and/or MAG REPLACEMENT MC SCH ×4 (08:00→19:21)
[2021-08-14] MEDS: carvedilol 6.25mg tablet PO SCH ×2 (08:37→19:21)
[2021-08-14] MEDS: citalopram 20mg tablet PO SCH (08:37)
[2021-08-14] MEDS: aspirin 81mg tab.chew PO SCH (08:37)
[2021-08-14] MEDS: docusate sod 100mg capsule PO SCH ×2 (08:37→19:21)
[2021-08-14] MEDS: apixaban 5mg tablet PO SCH ×2 (08:38→19:22)
[2021-08-14] MEDS: furosemide 40mg tablet PO SCH (08:38)
[2021-08-14] MEDS: atorvastatin 10mg tablet PO SCH (08:38)
[2021-08-14] MEDS: spironolactone 25 MG tablet PO SCH (08:38)
[2021-08-14] MEDS: ferrous sulfate 325mg tablet PO SCH (08:38)
[2021-08-14 10:00] VITALS: BP 90/56
[2021-08-14 14:00] VITALS: BP 92/53
[2021-08-14] MEDS: LORazepam 0.5 MG tablet PO PRN ×2 (14:15→21:47)
[2021-08-14 18:00] VITALS: BP 97/50
--- NOTE | 2021-08-14 18:38 | NUR ---
Patient in room MED 311. I have received report from Bouchra RUSHING and had the opportunity to ask questions and assume patient care.
[2021-08-14 22:00] VITALS: BP 96/46
[2021-08-15] MEDS: clindamycin 600mg/D5W 50ml 50 ML IV SCH ×3 (01:57→14:32)
[2021-08-15 02:00] VITALS: BP 107/58
[2021-08-15] MEDS: LORazepam 0.5 MG tablet PO PRN ×2 (03:17→13:39)
[2021-08-15] MEDS: HYDROcodone/acetaminophen 5mg/325mg tablet PO PRN ×3 (04:02→14:32)
--- NOTE | 2021-08-15 06:18 | NUR ---
Problems reprioritized. Patient report given, questions answered & plan of care reviewed with Katherin RUSHING.
--- NOTE | 2021-08-15 06:32 | NUR ---
Patient in room MED 311. I have received report from Aleena RUSHING and had the opportunity to ask questions and assume patient care
[2021-08-15 06:44] VITALS: BP 106/59
[2021-08-15] MEDS: K and/or MAG REPLACEMENT MC SCH ×2 (08:00)
[2021-08-15] MEDS: docusate sod 100mg capsule PO SCH (08:50)
[2021-08-15] MEDS: furosemide 40mg tablet PO SCH (08:50)
[2021-08-15] MEDS: citalopram 20mg tablet PO SCH (08:50)
[2021-08-15] MEDS: apixaban 5mg tablet PO SCH (08:50)
[2021-08-15] MEDS: atorvastatin 10mg tablet PO SCH (08:50)
[2021-08-15] MEDS: spironolactone 25 MG tablet PO SCH (08:50)
[2021-08-15] MEDS: aspirin 81mg tab.chew PO SCH (08:50)
[2021-08-15] MEDS: ferrous sulfate 325mg tablet PO SCH (08:50)
[2021-08-15] MEDS: carvedilol 6.25mg tablet PO SCH (08:50)
[2021-08-15] MEDS ORDERED: FURO40TA4 PO (09:59)
[2021-08-15] MEDS ORDERED: CLIN-91 PO (09:59)
[2021-08-15 10:21] VITALS: BP 104/42
[2021-08-15 13:48] VITALS: BP 99/47
--- NOTE | 2021-08-15 14:56 | NUR ---
report called to Austyn at [facility], patient is still on ACCE with Rudy RUSHING awaiting transfer.
== END 2021-08-15 16:55 | DRG 570 ==
LOC: ER 21:52 → ED HOLD 07-27 03:18 → MED 3N 07-27 15:11
PROVIDERS: ADMIT Internal Medicine; ATTEND Family Medicine
PROC: 0J9N00Z Drainage of Right Lower Leg Subcutaneous Tissue and Fascia with Drainage Device, Open Approach (ICD-10-PCS; 2021-08-07)
PROC: 0JBN0ZZ Excision of Right Lower Leg Subcutaneous Tissue and Fascia, Open Approach (ICD-10-PCS; principal; 2021-08-07 15:38)
DX: L02.415 Cutaneous abscess of right lower limb (principal); N17.0 Acute kidney failure with tubular necrosis; E43 Unspecified severe protein-calorie malnutrition; I50.22 Chronic systolic (congestive) heart failure; I42.0 Dilated cardiomyopathy; Z68.1 Body mass index [BMI] 19.9 or less, adult; I13.0 Hypertensive heart and chronic kidney disease with heart failure and stage 1 through stage 4 chronic kidney disease, or unspecified chronic kidney disease; I42.7 Cardiomyopathy due to drug and external agent; F15.20 Other stimulant dependence, uncomplicated; R64 Cachexia; L02.416 Cutaneous abscess of left lower limb; F41.9 Anxiety disorder, unspecified; G89.29 Other chronic pain; M54.9 Dorsalgia, unspecified; E78.5 Hyperlipidemia, unspecified; J44.9 Chronic obstructive pulmonary disease, unspecified; F32.A Depression, unspecified; N18.30 Chronic kidney disease, stage 3 unspecified; L03.116 Cellulitis of left lower limb; L03.115 Cellulitis of right lower limb; Z86.711 Personal history of pulmonary embolism; Z79.01 Long term (current) use of anticoagulants; Z80.0 Family history of malignant neoplasm of digestive organs; Z90.710 Acquired absence of both cervix and uterus; Z20.822 Contact with and (suspected) exposure to COVID-19; Z91.041 Radiographic dye allergy status; Z88.5 Allergy status to narcotic agent; Z91.013 Allergy to seafood; Z79.899 Other long term (current) drug therapy; Z86.14 Personal history of Methicillin resistant Staphylococcus aureus infection; Z79.82 Long term (current) use of aspirin; F15.90 Other stimulant use, unspecified, uncomplicated
CPT/HCPCS: 36415; 80048; 80053; 80305; 80320; 82948; 83605; 83735; 84100; 84132; 84145; 85008; 85025; 85027; 85730; 87040; 87070; 87075; 87081; 87635; 93005; 97110; 97116; 97161; 97530; 99285; A4618; A6550; A7000; G0378; J0696; J1100; J1170; J1644; J1650; J2250; J2405; J3010; J3370; J3480; J3490; J7120